=== PATIENT | female | born 1975 | race Caucasian/White ===

== ENCOUNTER 2023-02-24 09:27 | Emergency (ER) | payer OTHER, SELFPAY ==
[2023-02-24 09:28] VITALS: BP 119/67; PULSE 78; RESP 18; TEMP 36.1; O2SAT 100
--- NOTE | 2023-02-24 09:50 | EKG12_ITS ---
Test Reason : ABN LABS Blood Pressure : / mmHG Vent. Rate : 072 BPM Atrial Rate : 072 BPM P-R Int : 176 ms QRS Dur : 094 ms QT Int : 400 ms P-R-T Axes : 064 048 051 degrees QTc Int : 438 ms Normal sinus rhythm Normal ECG Confirmed by SVEN MCCRAY, JOHNSON ([id number]), supervising editor trailer LUCA CASSIDY ([id number]) on 02/28/2023 8:40:31 AM Referred By: Confirmed By:CHIOMA MACHUCA MD
--- NOTE | 2023-02-24 09:52 | EX.ED.DYSGE1 ---
HPI History of Present Illness Chief Complaint: Abn Labs Informant: patient Narrative Narrative: Patient presents secondary to anemia. She has been feeling very fatigued over the past week. She had a normal scheduled visit with her PCP on Saturday. Blood work was sent. This weekend she reviewed her records online and noted that her hemoglobin was down to 8.7 so presents here. She does report having some intermittent dark stool recently, but states she thought it was because she had been eating blueberries. She is unsure if she might have a GI bleed. She is unsure when her blood work may have been last checked or what her baseline hemoglobin normally runs. [facility] Medical History (Updated 02/24/23 @ 11:[address] Stacy Velásquez MD) Anxiety Depression Fibromyalgia High cholesterol Hx of gastroesophageal reflux (GERD) Leukemia Home Medications ferrous sulfate 325 mg (65 mg iron) tablet 325 mg PO BID #60 tabs 02/24/23 [Rx Last Taken Unknown] Allergy/AdvReac Type Severity Reaction Status Date / Time Sulfa (Sulfonamide Allergy Severe Other Verified 02/24/23 10:27 Antibiotics) Social History Smoking Status: Never smoker ROS ROS ED Constitutional Constitutional ED: Denies chills or fever(s) Eyes Eyes: Denies change in vision or discharge from eye(s) ENT ENT ED: Denies discharge from eye(s), rhinorrhea or sore throat Cardiovascular Cardiovascular: Denies chest pain or palpitations Respiratory/Chest Respiratory/Chest: Denies cough or dyspnea Gastrointestinal Gastrointestinal: Denies abdominal pain, diarrhea, nausea or vomiting Genitourinary Genitourinary ED: Reports urinary frequency; Denies dysuria Musculoskeletal Musculoskeletal: Reports back pain; Denies extremity pain Integumentary Denies Abrasions or rash Neurologic Neurologic: Reports weakness; Denies headache(s) Psychiatric Psychiatric: Denies anxiety or depression Allergic/Immunologic Allergic/Immunologic ED: Denies lip swelling or urticaria EXAM Physical Exam Const Vital Signs: 02/24/23 09:28 02/24/23 10:22 Temperature 96.9 F L Temperature Source Temporal Pulse Rate 78 67 Respiratory Rate 18 16 Blood Pressure 119/67 124/68 H Blood Pressure Mean 84 86 Pulse Ox 100 99 Oxygen Delivery Method Room Air Nasal Cannula Positive well nourished and well developed General Appearance ED: well developed HEENT Reports normocephalic and head/scalp atraumatic Eyes PERRL and EOMs intact bilaterally Neck supple Chest Wall inspection of chest normal and palpation of chest normal Resp normal respiratory effort and clear to auscultation bilaterally Cardio regular rate and regular rhythm GI normal to inspection, nondistended, normoactive bowel sounds Palpation: soft Extremity normal to inspection Neuro oriented x3 and no sensory deficits noted Sensorium / Orientation: alert Motor Exam: strength 5/5 throughout Psych mental status grossly normal Skin no rashes or lesions noted MDM MDM MDM Narrative Medical decision making narrative: Labwork obtained to evaluate for leukocytosis, anemia, and electrolyte derangement. Rectal exam performed for stool guaiac to evaluate for GI bleed. Patient given IV fluids. Insert urinalysis Lab Data Attestation: I reviewed the patient's lab results. Labs: Laboratory Results - last 24 hr 02/24/23 02/24/23 09:55 10:15 WBC 6.2 RBC 4.30 Hgb 9.4 L Hct 31.3 L MCV 72.8 L MCH 21.9 L MCHC 30.0 L RDW Std Deviation 50.6 H RDW Coeff of Marine 19.6 H Plt Count 365 MPV 9.7 Immature Gran % (Auto) 0.300 Neut % (Auto) 69.0 Lymph % (Auto) 22.6 [place] % (Auto) 6.5 Eos % (Auto) 1.1 Baso % (Auto) 0.5 Absolute Neuts (auto) 4.3 Absolute Lymphs (auto) 1.40 Nucleated RBC % 0 Sodium 138 Potassium 3.5 Chloride 106 Carbon Dioxide 26.0 Anion Gap 6 BUN 11 Creatinine 0.76 Est GFR (MDRD) Af Amer 106 Est GFR (MDRD) Non-Af 87 BUN/Creatinine Ratio 14.5 Glucose 128 H Calcium 9.1 Total Bilirubin 0.40 Direct Bilirubin 0.13 AST 14 L ALT 24 Alkaline Phosphatase 55 Total Protein 7.9 Albumin 3.9 Globulin 4.0 TSH 1.06 Serum , Qual NEGATIVE Urine Color Yellow Urine Clarity Clear Urine pH 7.0 Ur Specific [place] 1.005 Urine Protein Negative Urine Glucose (UA) Normal Urine Ketones Negative Urine Occult Blood Negative Urine Nitrite Negative Urine Bilirubin Negative Urine Urobilinogen Normal Ur Leukocyte Esterase Negative Urine RBC 0 SEEN Urine WBC 0 SEEN Ur Squamous Epith Cells 0-5 SEEN Urine Bacteria 0 SEEN Urine Mucus 0 SEEN EKG Initial EKG: Attestation: I personally reviewed and interpreted this EKG as follows: Interpretation: Sinus Rhythm (Sinus at 72 with no acute ischemia.) Treatment and Re-Evaluation :: CBC was white count 6.2 with a platelet count of 365,000. Hemoglobin is 9.4. She appears to have microcytic anemia. Chemistry studies are unremarkable. Glucose is 128. LFTs normal. TSH normal at 1.06. test negative and urinalysis negative. Stool guaiac is negative for blood. Patient will be given a prescription for iron supplements. She is to have her hemoglobin rechecked in a couple weeks. She was advised that her stool appeared dark with her iron supplement. Return instructions are given. Discharge Plan Triage Chief Complaint: Abn Labs ED Provider: Stacy Velásquez Dx/Rx/DC Orders Clinical Impression: Anemia Instructions: Iron Supplements, ED Anemia, Type Not Specified (Adult) Prescriptions: New ferrous sulfate 325 mg (65 mg iron) tablet 325 mg PO BID Qty: 60 0RF Primary Care Provider: Norm Soliz Referrals: Norm Soliz [[facility]] - 1-2 Weeks Disposition Disposition: Home, Self Care
[2023-02-24 10:05] LABS: Absolute Neutrophil Count 4.3 X10^3/uL (2.0-7.7); Basophil# 0.03 X10^3/uL; Basophil% 0.5 % (0-1); Eosinophil# 0.07 X10^3/uL; Eosinophils% 1.1 % (0-5); Hematocrit 31.3 % (37-47); Hemoglobin 9.4 g/dL (12.0-15.0); Lymphocyte % 22.6 % (19-41); Mean Corpuscular Hgb 21.9 pg (27.0-32.0); Mean Corpuscular Volume 72.8 fL (81-99); Mean Platelet Vol. 9.7 fl (6.2-12.0); Monocyte% 6.5 % (0-10); NRBC Flagged by Analyzer 0 % (0-5); Neutrophil # 4.27 X10^3/uL (2.7-7.7); Platelet Count 365 K/mm3 (150-450); RBC Distribution Width CV 19.6 % (11.6-14.6); RBC Distribution Width SD 50.6 fl (35.1-43.9); White Blood Count 6.2 K/mm3 (4.4-11.0)
[2023-02-24 10:22] VITALS: BP 124/68; PULSE 67; RESP 16; O2SAT 99
[2023-02-24 10:22] LABS: Internal QC Validated? YES +Cl - CLEAR BKGD; Pregnancy, Serum, hCG Quali. NEGATIVE Negative
[2023-02-24 10:22] LABS: Bacteria 0 SEEN /hpf (None Seen); Color, Urine Yellow (Yellow); Glucose, Dipstick Normal (Normal); Ketone-Dipstick Negative (Negative); Leukocyte Esterase-Dipstick Negative /ul (Negative); Mucous, Urine 0 SEEN /hpf (<or=2+); Nitrite-Dipstick Negative (Negative); Occult Blood-Urine Negative /ul (Negative); Protein-Dipstick Negative (Negative); Red Blood Cells-Urine 0 SEEN /hpf (0-5); Specific Gravity, Urine 1.005 (1.002-1.030); Urine Bilirubin Dipstick Negative (Negative); Urine Clarity Clear (Clear); Urine Urobilinogen Normal (Normal); White Blood Cells 0 SEEN /hpf (0-5)
[2023-02-24] MEDS: 0.9% Normal Saline 1,000 ML 150 ML IV (10:23)
[2023-02-24 10:27] LABS: Squamous Epithelial Cells - UA 0-5 SEEN /hpf (5-10)
[2023-02-24 10:30] LABS: AST(SGOT) 14 U/L (15-37); Alanine Aminotransfer ALT/SGPT 24 U/L (13-56); Albumin, Serum 3.9 g/dL (3.2-5.0); Alkaline Phosphatase 55 U/L (45-117); Anion Gap 6 (5-15); BUN 11 mg/dL (7-18); BUN/Creat Ratio 14.5 RATIO (10-20); Bilirubin, Direct 0.13 mg/dL (0.00-0.30); Calcium,Total 9.1 mg/dL (8.5-10.1); Chloride 106 mmol/L (98-107); Creatinine, Serum 0.76 mg/dL (0.55-1.02); EST Glomerular Filtration Rate 87 mL/min (>60); Est Glom Filt Rate - Afr Amer 106 mL/min (>60); Glucose 128 mg/dL (74-106); Potassium 3.5 mmol/L (3.5-5.1); Protein, Total 7.9 g/dL (6.4-8.2); Sodium Level 138 mmol/L (136-145); Thyroid Stim Hormone (TSH) 1.06 uIU/mL (0.358-3.74)
[2023-02-24 11:55] VITALS: BP 129/74; PULSE 78; RESP 15; O2SAT 100; BMI 30.9
== END 2023-02-24 11:56 | disposition home or self-care (01) ==
PROVIDERS: Emergency Provider Emergency Medicine; PCP Family Medicine; Visit Provider Emergency Medicine
DX: D64.9 Anemia, unspecified (principal); E78.00 Pure hypercholesterolemia, unspecified
CPT/HCPCS: 80048; 80076; 81001; 82274; 84443; 84703; 85025; 93005; 96360; 96361; 99284; J7030

== ENCOUNTER 2023-10-12 12:44 | Emergency (ER) | payer OTHER, SELFPAY ==
[2023-10-12 12:45] VITALS: BP 132/72; PULSE 88; RESP 14; TEMP 36.1; O2SAT 98; BMI 27.7
--- NOTE | 2023-10-12 13:04 | RAD_ITS ---
STUDY: X-RAY CHEST REASON FOR EXAM: Female, 48 years old. Chest pain TECHNIQUE: Frontal view of the chest COMPARISON: None. FINDINGS: The lungs are clear. There are no pleural effusions. There is no pneumothorax. The heart is normal in size. The visualized osseous structures are within normal limits. RAD/Chest 1 View (Portable) IMPRESSION: No acute thoracic pathology. Electronically Signed: Scotty Goodrich MD at 13:51 EDT ,
--- NOTE | 2023-10-12 13:06 | ED.VIS.CHEST ---
HPI <ANDREINA Fagan - Last Filed: 10/12/23 15:47> History of Present Illness Chief Complaint: Chest Pain Narrative Narrative: 48-year-old female with PMH of HLD, anemia, anxiety, depression presents with chest pain. In July 2023 she developed fatigue, congestion and cough along with chest pain. She completed antibiotics but since then has had daily persistent fatigue and midsternal chest pain. The chest pain is a tightness and feels worse over the last 3 days. She feels winded after speaking or singing. The pain is not exertional or pleuritic. She states she saw her primary care doctor a week ago and had a normal two-view chest x-ray and has been on a new antibiotic over the last 3 days for increased cough. No fever or chills. No history of DVT/PE. No hemoptysis, leg pain or swelling, recent surgery or travel, or hormone use. PFSH <ANDREINA Fagan - Last Filed: 10/12/23 15:47> PFSH Medical History (Updated 10/12/23 @ 14:08 by ANDREINA Fagan) Anxiety Depression Fibromyalgia High cholesterol Hx of gastroesophageal reflux (GERD) Leukemia Home Medications ferrous sulfate 325 mg (65 mg iron) tablet 325 mg PO BID #60 tabs 02/24/23 [Rx Last Taken Unknown] Allergy/AdvReac Type Severity Reaction Status Date / Time Sulfa (Sulfonamide Allergy Severe Other Verified 10/12/23 12:45 Antibiotics) Social History Smoking Status: Never smoker ROS <ANDREINA Fagan - Last Filed: 10/12/23 15:47> ROS ED ROS Narrative Constitutional: Negative for fever, chills, malaise. CVS: Positive for chest pain. Negative for palpitations, syncope. Respiratory: Positive for cough. GI: Negative for abdominal pain, nausea, vomiting, melena, hematochezia. EXAM <ANDREINA Fagan - Last Filed: 10/12/23 15:47> Physical Exam Narrative Exam Narrative: CONST: Patient sitting in no acute distress. EYES: Normal inspection. NECK: Normal inspection. RESP: No respiratory distress, CTAB. CVS: Regular rate and rhythm, no murmur, no gallop. ABD: Soft and nontender, no guarding or rebound, nondistended. SKIN: Color normal, no rash, warm, dry, intact. EXTREMITIES: Normal appearance, no pedal edema. NEURO: Oriented x4. PSYCH: Normal affect. Const Vital Signs: 10/12/23 12:45 10/12/23 15:25 Temperature 96.9 F L 98 F Temperature Source Temporal Pulse Rate 88 72 Respiratory Rate 14 18 Blood Pressure 132/72 H 117/57 L Blood Pressure Mean 92 77 Pulse Ox 98 98 Oxygen Delivery Method Room Air <Dr. Ricci Stephen DO - Last Filed: 10/12/23 16:46> Physical Exam Const Vital Signs: 10/12/23 12:45 10/12/23 15:25 Temperature 96.9 F L 98 F Temperature Source Temporal Pulse Rate 88 72 Respiratory Rate 14 18 Blood Pressure 132/72 H 117/57 L Blood Pressure Mean 92 77 Pulse Ox 98 98 Oxygen Delivery Method Room Air MDM <ANDREINA Fagan - Last Filed: 10/12/23 15:47> [facility] Narrative Medical decision making narrative: Patient has had ongoing fatigue and chest pain since July 2023. She feels like the chest tightness has increased in intensity over the last several days. She also had an increase in her ongoing cough and started an antibiotic 3 days ago. She appears well and nontoxic and is afebrile with normal vital signs. Normal cardiopulmonary exam. Abdomen soft and nontender. No clinical signs of fluid overload or DVT present. CBC shows normal white count of 6.3, hemoglobin of 11.8 is higher than previous. She is on iron supplementation as needed for iron deficiency anemia. BMP shows glucose of 178 and potassium of 3.4 but overall unremarkable. EKG is sinus rhythm with no ischemic changes and troponin is 4. CXR shows no acute process. Patient is PERC negative and there is no indication for D-dimer or CT scan. Her ongoing symptoms over the last 2 to 3 months with persistent fatigue and chest pain after a URI sound like a postviral syndrome. I recommended she follow-up with her PCP and she was discharged in stable condition. Lab Data Attestation: I reviewed the patient's lab results. Labs: Laboratory Results - last 24 hr 10/12/23 13:10 WBC 6.3 RBC 3.97 L Hgb 11.8 L Hct 36.0 L MCV 90.7 MCH 29.7 MCHC 32.8 RDW Std Deviation 41.9 RDW Coeff of Marine 12.7 Plt Count 265 MPV 10.0 Immature Gran % (Auto) 0.300 Neut % (Auto) 73.6 H Lymph % (Auto) 17.2 L [place] % (Auto) 7.3 Eos % (Auto) 1.1 Baso % (Auto) 0.5 Absolute Neuts (auto) 4.7 Absolute Lymphs (auto) 1.09 Nucleated RBC % 0 Sodium 137 Potassium 3.4 L Chloride 104 Carbon Dioxide 28.0 Anion Gap 5 BUN 10 Creatinine 0.72 Estim Creat Clear Calc 98.26 Est GFR (MDRD) Af Amer 112 Est GFR (MDRD) Non-Af 93 BUN/Creatinine Ratio 13.9 Glucose 178 H Calcium 9.1 Troponin I High Sens 4 Radiography Diagnostic Testing: Clinical Impression(s) from Imaging Studies Chest X-Ray 10/12/23 13:04 IMPRESSION: No acute thoracic pathology. Electronically Signed: Scotty Goodrich MD at 13:51 EDT , ED attending interpretation of 1-view chest x-ray shows normal heart size, no acute infiltrate, edema, or effusion. <Dr. Ricci Stephen, DO - Last Filed: 10/12/23 16:46> [facility] Narrative Medical decision making narrative: Patient has had ongoing fatigue and chest pain since July 2023. She feels like the chest tightness has increased in intensity over the last several days. She also had an increase in her ongoing cough and started an antibiotic 3 days ago. She appears well and nontoxic and is afebrile with normal vital signs. Normal cardiopulmonary exam. Abdomen soft and nontender. No clinical signs of fluid overload or DVT present. CBC shows normal white count of 6.3, hemoglobin of 11.8 is higher than previous. She is on iron supplementation as needed for iron deficiency anemia. BMP shows glucose of 178 and potassium of 3.4 but overall unremarkable. EKG is sinus rhythm with no ischemic changes and troponin is 4. CXR shows no acute process. Patient is PERC negative and there is no indication for D-dimer or CT scan. Her ongoing symptoms over the last 2 to 3 months with persistent fatigue and chest pain after a URI sound like a postviral syndrome. I recommended she follow-up with her PCP and she was discharged in stable condition. This patient was seen with a PA/WHEEL CUTTER Individually assessed they patient including history and physical. I have reviewed everything on the chart that is available and agree with the documentation provided by the PA/WHEEL CUTTER including discussion about the assessment, treatment plan, discussion, and return precautions. Patient presenting with atypical chest pain. Is been ongoing for days. Patient has no cardiac history. No history of DVT/PE risk factors. Differential as above. Lab work all unremarkable. Chest x-ray my interpretation shows no acute process. EKG sinus rhythm without evidence of ischemia or ectopy. This is on my interpretation. Patient's lab workup ultimately unremarkable. Discussed at length with her appropriate follow-up. Return precautions were discussed. Lab Data Labs: Laboratory Results - last 24 hr 10/12/23 13:10 WBC 6.3 RBC 3.97 L Hgb 11.8 L Hct 36.0 L MCV 90.7 MCH 29.7 MCHC 32.8 RDW Std Deviation 41.9 RDW Coeff of Marine 12.7 Plt Count 265 MPV 10.0 Immature Gran % (Auto) 0.300 Neut % (Auto) 73.6 H Lymph % (Auto) 17.2 L [place] % (Auto) 7.3 Eos % (Auto) 1.1 Baso % (Auto) 0.5 Absolute Neuts (auto) 4.7 Absolute Lymphs (auto) 1.09 Nucleated RBC % 0 Sodium 137 Potassium 3.4 L Chloride 104 Carbon Dioxide 28.0 Anion Gap 5 BUN 10 Creatinine 0.72 Estim Creat Clear Calc 98.26 Est GFR (MDRD) Af Amer 112 Est GFR (MDRD) Non-Af 93 BUN/Creatinine Ratio 13.9 Glucose 178 H Calcium 9.1 Troponin I High Sens 4 Radiography Diagnostic Testing: Clinical Impression(s) from Imaging Studies Chest X-Ray 10/12/23 13:04 IMPRESSION: No acute thoracic pathology. Electronically Signed: Scotty Goodrich MD at 13:51 EDT , Discharge Plan Triage Chief Complaint: Chest Pain ED Midlevel Provider: Idalmis Cintron ED Provider: Ricci Stephen Dx/Rx/DC Orders Clinical Impression: Fatigue, Atypical chest pain Instructions: ED Chest Pain, Uncertain Cause Prescriptions: No Action ferrous sulfate 325 mg (65 mg iron) tablet 325 mg PO BID Qty: 60 0RF Primary Care Provider: Norm Soliz Referrals: Norm Soliz DO [Primary Care Provider] - Activity Restrictions/Additional Instructions: Your screening test today look normal and I recommend you follow-up with your primary care doctor for further evaluation of your symptoms. Disposition Disposition: Home, Self Care Discharge Date/Time: 10/12/23 15:26
[2023-10-12 13:20] LABS: Absolute Lymphocyte Count 1.09 X10^3/uL (0.83-4.51); Absolute Neutrophil Count 4.7 X10^3/uL (2.0-7.7); Basophil# 0.03 X10^3/uL; Basophil% 0.5 % (0-1); Eosinophil# 0.07 X10^3/uL; Eosinophils% 1.1 % (0-5); Hemoglobin 11.8 g/dL (12.0-15.0); Lymphocyte # 1.09 X10^3/ul (0.83-4.51); Lymphocyte % 17.2 % (19-41); Mean Corp Hgb Conc 32.8 g/dL (32-36); Mean Corpuscular Hgb 29.7 pg (27.0-32.0); Mean Corpuscular Volume 90.7 fL (81-99); Monocyte# 0.46 X10^3/uL; Monocyte% 7.3 % (0-10); NRBC Flagged by Analyzer 0 % (0-5); Neutrophil # 4.67 X10^3/uL (2.7-7.7); Neutrophil % 73.6 % (47-70); Platelet Count 265 K/mm3 (150-450); RBC Distribution Width CV 12.7 % (11.6-14.6); RBC Distribution Width SD 41.9 fl (35.1-43.9); Red Blood Count 3.97 M/mm3 (4.2-5.4); White Blood Count 6.3 K/mm3 (4.4-11.0)
--- OUTSIDE RECORDS SUMMARY | 2023-10-12 13:34 | XMS RPT_ITS | CCD ---
Author Name Unknown Address [address] [place] [address] Organization [facility] Care Team Providers Care Net Making Supervisor Name Role Phone Norm Soliz F Primary Care Provider [phone] PROVIDER, UNKNOWN Referring Unavailable Simona De Souza Attending Unavailable Petrilla, Norm Primary Care Unavailable PROVIDER, UNKNOWN Referring Unavailable ADORE HOLLOWAY Attending Unavailable Petrilla, Norm Primary Care Unavailable Petrilla DONorm F Primary Care Provider MinniellNorm rahman DO F Primary Care Provider PETRILLA, NORM Primary Care Unavailable ADORE HOLLOWAY Attending Unavailable PETRILLA, NORM Primary Care Unavailable BRIDENTHAL, MARITA Attending Unavailable PETRILLA, NORM Primary Care Unavailable BRIDENTHAL, MARITA Attending Unavailable PETRILLA, NORM Attending Unavailable PETRILLA, NORM Primary Care Unavailable PETRILLA, NORM Attending Unavailable PETRILLA, NORM Primary Care Unavailable PETRILLA, NORM Primary Care Unavailable PETRILLA, NORM Attending Unavailable PETRILLA, NORM Primary Care Unavailable TARYN ZELAYA Attending Unavailable PETRILLA, NORM Primary Care Unavailable ADORE HOLLOWAY Attending Unavailable ADORE HOLLOWAY Referring Unavailable PETRILLA, NORM Primary Care Unavailable TARYN ZELAYA Attending Unavailable GARCIA TARYN Referring Unavailable PETRILLA, NORM Primary Care Unavailable BRIDENTHAL, MARITA Attending Unavailable BRIDENTHAL, MARITA Referring Unavailable PETRILLA, NORM Primary Care Unavailable TARYN ZELAYA Attending Unavailable PETRILLA, NORM Attending Unavailable PETRILLA, NOMR Primary Care Unavailable PETRILLA, NORM Referring Unavailable PETRILLA, NORM Primary Care Unavailable QUENTIN BRAND Attending Unavailable QUENTIN BRAND Referring Unavailable PETRILLA, NORM Primary Care Unavailable JUAN A LEDEZMA Attending Unavailable DASHAWN CRANE Attending Unavailable PETRILLA, NORM Primary Care Unavailable PETRILLA, NORM Referring Unavailable PETRILLA, NORM Primary Care Unavailable FLORENTINO ARZOLA Admitting Unavailable FLORENTINO ARZOLA Attending Unavailable Allergies Allergy Classification Reported Allergen(s) Allergy Type Date of Onset Reaction(s) Facility Sulfonamides (antibiotic) (1 source) Sulfonamides (Antibiotic) Drug Allergy 5 [facility] (4 sources) Sulfonamides (Antibiotic) Propensity to adverse reactions to drug 5 [place], [place] (20 sources) Sulfonamides (Antibiotic) Propensity to adverse reactions to drug 2 Unknown, [facility] Medications Current Medications Medication Drug Class(es) Dates Sig (Normalized) Sig (Original) amoxicillin 500 mg oral capsule (1 source) Penicillin-class Antibacterial Start: 02-13-2022 End: 02-23-2022 take 1 capsule by mouth twice daily amoxicillin (POLYMOX, AMOXIL) 500 mg capsule Take 1 capsule by mouth twice daily for 10 days. 20 capsule 0 02/13/2022 02/23/2022 Active Completed/Discontinued Medications Medication Drug Class(es) Dates Sig (Normalized) Sig (Original) calcium chloride 0.0014 meq/ml / potassium chloride 0.004 meq/ml / sodium chloride 0.103 meq/ml / sodium lactate 0.028 meq/ml injectable solution (2 sources) Start: 04-25-2023 End: 04-25-2023 lactated Ringer's (LR) infusion fluorometholone 1 mg/ml ophthalmic suspension (20 sources) Corticosteroid Start: 01-17-2021 fluorometholone (FML LIQUID FILM) 0.1 % ophthalmic suspension INSTILL 1 DROP INTO BOTH EYES EVERY NIGHT 0 01/17/2021 Active Problems Active Problems Problem Classification Problem Date Documented Date Episodic/Chronic Abdominal hernia (20 sources) Hiatal hernia; Translations: [Diaphragmatic hernia without obstruction or gangrene] Onset: 03-29-2023 05-05-2023 Episodic Anxiety disorders (20 sources) Mixed anxiety and depressive disorder; Translations: [Anxiety disorder, unspecified] Onset: 08-13-2016 08-13-2016 Chronic Deficiency and other anemia (2 sources) Iron deficiency anemia due to blood loss; Translations: [Iron deficiency anemia secondary to blood loss (chronic)] 06-12-2023 Chronic Deficiency and other anemia (2 sources) Iron deficiency anemia secondary to blood loss (chronic); Translations: [Iron deficiency anemia secondary to blood loss (chronic)] Onset: 07-11-2023 Chronic Deficiency and other anemia (1 source) Hypochromic microcytic anemia with iron overload; Translations: [Other iron deficiency anemias] 02-24-2023 Episodic Deficiency and other anemia (1 source) Iron deficiency anemia; Translations: [Iron deficiency anemia, unspecified] 03-04-2023 Episodic Deficiency and other anemia (3 sources) Anemia; Translations: [Anemia, unspecified] 03-14-2023 Episodic Disorders of lipid metabolism (20 sources) Hyperlipidemia; Translations: [Hyperlipidemia, unspecified] Onset: 08-23-2022 02-20-2023 Chronic Esophageal disorders (7 sources) Gastroesophageal reflux disease without esophagitis; Translations: [Gastro-esophageal reflux disease without esophagitis] Onset: 02-20-2023 02-20-2023 Chronic Esophageal disorders (2 sources) Esophageal disorders; Translations: [Gastro-esophageal reflux disease with esophagitis, without bleeding] Onset: 03-04-2023 Malaise and fatigue (14 sources) Fatigue; Translations: [Other fatigue] Onset: 09-03-2023 Episodic Menstrual disorders (20 sources) Menorrhagia; Translations: [Excessive and frequent menstruation with regular cycle] Onset: 11-11-2018 11-11-2018 Chronic Mood disorders (2 sources) Mood disorders; Translations: [Depression, unspecified] Onset: 05-14-2022 Nonspecific chest pain (1 source) Chest pain; Translations: [Chest pain, unspecified] Episodic Other connective tissue disease (2 sources) Pain in right lower leg; Translations: [Pain in right lower leg] Onset: 05-23-2022 Episodic Other connective tissue disease (2 sources) Other specified soft tissue disorders; Translations: [Other specified soft tissue disorders] Onset: 05-23-2022 Episodic Other female genital disorders (20 sources) Premenstrual tension syndrome; Translations: [Premenstrual tension syndrome] Onset: 07-05-2015 08-24-2015 Chronic Other lower respiratory disease (12 sources) Dyspnea; Translations: [Shortness of breath] Onset: 09-03-2023 Episodic Other lower respiratory disease (4 sources) Cough; Translations: [Cough, unspecified type] 10-04-2023 Episodic Other screening for suspected conditions (not mental disorders or infectious disease) (11 sources) Patient encounter status; Translations: [Encounter for screening for malignant neoplasm of colon] Onset: 02-20-2023 02-20-2023 Episodic Other skin disorders (1 source) Eruption; Translations: [Rash and other nonspecific skin eruption] Episodic Other upper respiratory infections (4 sources) Sinusitis; Translations: [Chronic sinusitis, unspecified] Onset: 10-04-2023 10-04-2023 Chronic Other upper respiratory infections (13 sources) Sore throat symptom; Translations: [Acute pharyngitis, unspecified] Onset: 03-23-2021 Resolved: 04-22-2021 Episodic Residual codes; unclassified (20 sources) Obstructive sleep apnea syndrome; Translations: [Obstructive sleep apnea (adult) (pediatric)] Onset: 07-29-2015 07-26-2016 Chronic Thyroid disorders (20 sources) Goiter; Translations: [Iodine-deficiency related diffuse (endemic) goiter] Onset: 02-15-2022 Chronic Unclassified (2 sources) Patient encounter status; Translations: [Encounter for screening mammogram for malignant neoplasm of breast] Unclassified (1 source) Cough, unspecified; Translations: [Cough, unspecified] Onset: 10-04-2023 Viral infection (12 sources) Disease caused by 2019-nCoV; Translations: [COVID-19] Onset: 09-03-2023 Episodic Past or Other Problems Problem Classification Problem Date Documented Date Episodic/Chronic Deficiency and other anemia (2 sources) Anemia, unspecified; Translations: [Anemia, unspecified] Onset: 03-14-2023 Episodic Deficiency and other anemia (2 sources) Iron deficiency anemia, unspecified; Translations: [Iron deficiency anemia, unspecified] Onset: 03-04-2023 Episodic Gastritis and duodenitis (20 sources) Gastritis; Translations: [Gastritis, unspecified, without bleeding] Onset: 03-29-2023 05-05-2023 Episodic Genitourinary symptoms and ill-defined conditions (3 sources) Abnormal urine odor; Translations: [Unspecified abnormal findings in urine] Onset: 06-12-2023 06-12-2023 Episodic Mood disorders (5 sources) Depressive disorder; Translations: [Major depressive disorder, single episode, unspecified] Onset: 07-05-2015 Resolved: 08-13-2016 08-13-2016 Chronic Neoplasms of unspecified nature or uncertain behavior (4 sources) Neoplasm of uncertain behavior of thyroid gland; Translations: [Neoplasm of uncertain behavior of thyroid gland] Onset: 05-07-2023 05-07-2023 Episodic Other connective tissue disease (20 sources) H/O: musculoskeletal disease; Translations: [Personal history of other diseases of the musculoskeletal system and connective tissue] Onset: 08-24-2015 08-24-2015 Episodic Other connective tissue disease (2 sources) Personal history of other diseases of the musculoskeletal system and connective tissue; Translations: [Personal history of other diseases of the musculoskeletal system and connective tissue] Onset: 05-14-2022 Episodic Residual codes; unclassified (20 sources) Family history of malignant neoplasm of thyroid; Translations: [Family history of malignant neoplasm of other organs or systems] Onset: 02-20-2023 02-20-2023 Episodic Residual codes; unclassified (20 sources) History of colonoscopy; Translations: [Other specified postprocedural states] Onset: 04-28-2023 05-05-2023 Episodic Unclassified (1 source) Cough, unspecified; Translations: [Cough, unspecified] Onset: 10-04-2023 Results Test Name Value Interpretation Reference Range Facil ity Vital Signs Date Time Vital Sign Value Performing Clinician Cristi fischer 09-11-2023 11:44-0500 Body mass index (BMI) [Ratio] 28.84 kg/m2 Marita Russelljohnal HISTOLOGY MANAGER - STORE PLANNER Work Phone: [employer] 09-11-2023 11:44-0500 Body temperature 98.6 [degF] Marita Russellenthal HISTOLOGY MANAGER - STORE PLANNER Work Phone: [facility] [employer] 09-11-2023 11:44-0500 Body weight 76.2 kg Marita Russellenthal HISTOLOGY MANAGER - STORE PLANNER Work Phone: [facility] 09-11-2023 11:44-0500 Diastolic blood pressure 69 mm[Hg] Marita Russellenthal HISTOLOGY MANAGER - STORE PLANNER Work Phone: [facility] 09-11-2023 11:44-0500 Heart rate 82 /min Marita Russelljohncarol HISTOLOGY MANAGER - STORE PLANNER Work Phone: [facility] 09-11-2023 11:44-0500 Respiratory rate 16 /min Marita Bridenthal HISTOLOGY MANAGER - STORE PLANNER Work Phone: [facility] 09-11-2023 11:44-0500 SaO2% (BldA) [Mass fraction] 97 % Marita Bridenthal HISTOLOGY MANAGER - STORE PLANNER Work Phone: [facility] 09-11-2023 11:44-0500 Systolic blood pressure 107 mm[Hg] Marita Bridenthal HISTOLOGY MANAGER - STORE PLANNER Work Phone: [facility] 09-03-2023 15:20-0500 Body mass index (BMI) [Ratio] 28.32 kg/m2 Marita Bridenthal HISTOLOGY MANAGER - STORE PLANNER Work Phone: [facility] 09-03-2023 15:20-0500 Body temperature 98.4 [degF] Marita Bridenthal HISTOLOGY MANAGER - STORE PLANNER Work Phone: [facility] 09-03-2023 15:20-0500 Body weight 74.84 kg Marita Bridenthal HISTOLOGY MANAGER - STORE PLANNER Work Phone: [facility] 09-03-2023 15:20-0500 Diastolic blood pressure 75 mm[Hg] Marita Bridenthal HISTOLOGY MANAGER - STORE PLANNER Work Phone: [facility] 09-03-2023 15:20-0500 Heart rate 69 /min Marita Bridenthal HISTOLOGY MANAGER - STORE PLANNER Work Phone: [facility] 09-03-2023 15:20-0500 Respiratory rate 20 /min Marita Bridenthal HISTOLOGY MANAGER - STORE PLANNER Work Phone: [facility] 09-03-2023 15:20-0500 SaO2% (BldA) [Mass fraction] 96 % Marita Bridenthal HISTOLOGY MANAGER - STORE PLANNER Work Phone: [facility] 09-03-2023 15:20-0500 Systolic blood pressure 135 mm[Hg] Marita Bridenthal HISTOLOGY MANAGER - STORE PLANNER Work Phone: [facility] 07-12-2023 15:23-0500 Body height 162.6 cm Taryn Zelaya MD Work Phone: [facility] 07-12-2023 15:23-0500 Body mass index (BMI) [Ratio] 27.46 kg/m2 Taryn Zelaya MD Work Phone: [facility] 07-12-2023 15:23-0500 Body weight 72.58 kg Taryn Zelaya MD Work Phone: [facility] 07-11-2023 13:04-0500 Body height 165.1 cm Norm Mancusoa DO Work Phone: [facility] 07-11-2023 13:04-0500 Body mass index (BMI) [Ratio] 27.62 kg/m2 Norm Hartmanlla DO Work Phone: [facility] 07-11-2023 13:04-0500 Body temperature 97.5 [degF] Norm Hartmanlla DO Work Phone: [facility] 07-11-2023 13:04-0500 Body weight 75.3 kg Norm Hartmanlla DO Work Phone: [facility] 07-11-2023 13:04-0500 Diastolic blood pressure 60 mm[Hg] Norm Minniella DO Work Phone: [facility] 07-11-2023 13:04-0500 Heart rate 96 /min Norm Hartmanlla DO Work Phone: [facility] 07-11-2023 13:04-0500 SaO2% (BldA) [Mass fraction] 99 % Norm Minniella DO Work Phone: [facility] 07-11-2023 13:04-0500 Systolic blood pressure 110 mm[Hg] Norm Hartmanlla DO Work Phone: [facility] 07-10-2023 14:07-0500 Body height 165.1 cm Taryn Zelaya MD Work Phone: [facility] 07-10-2023 14:07-0500 Body mass index (BMI) [Ratio] 26.96 kg/m2 Taryn Zelaya MD Work Phone: [facility] 07-10-2023 14:07-0500 Body weight 73.48 kg Taryn Zelaya MD Work Phone: [facility] 07-10-2023 14:07-0500 Diastolic blood pressure 74 mm[Hg] Taryn Zelaya MD Work Phone: [facility] 07-10-2023 14:07-0500 Systolic blood pressure 126 mm[Hg] Taryn Zelaya MD Work Phone: [facility] 06-12-2023 12:22-0500 Body height 165.1 cm Taryn Zelaya MD Work Phone: [facility] 06-12-2023 12:22-0500 Body mass index (BMI) [Ratio] 27.46 kg/m2 Taryn Zelaya MD Work Phone: [facility] 06-12-2023 12:22-0500 Body weight 74.84 kg Taryn Zelaya MD Work Phone: [facility] 06-12-2023 12:22-0500 Diastolic blood pressure 80 mm[Hg] Taryn Zelaya MD Work Phone: [facility] 06-12-2023 12:22-0500 Systolic blood pressure 124 mm[Hg] Taryn Zelaya MD Work Phone: [facility] 05-07-2023 13:41-0400 Diastolic blood pressure 65 mm[Hg] [employer] Phone: [facility] 05-07-2023 13:41-0400 Heart rate 66 /min [employer] Phone: [facility] 05-07-2023 13:41-0400 Respiratory rate 18 /min [employer] Phone: [facility] 05-07-2023 13:41-0400 SaO2% (BldA) [Mass fraction] 100 % [employer] Phone: [facility] 05-07-2023 13:41-0400 Systolic blood pressure 122 mm[Hg] Quentin [facility] [employer] Work Phone: [facility] 04-25-2023 09:07-0400 Diastolic blood pressure 73 mm[Hg] [employer] Work Phone: [facility] 04-25-2023 09:07-0400 Heart rate 77 /min [employer]el [employer] Work Phone: [facility] 04-25-2023 09:07-0400 Respiratory rate 18 /min [employer] Work Phone: [facility] 04-25-2023 09:07-0400 SaO2% (BldA) [Mass fraction] 100 % [employer] Work Phone: [facility] 04-25-2023 09:07-0400 Systolic blood pressure 116 mm[Hg] [employer] Work Phone: [facility] 04-25-2023 08:45-0400 Body temperature 97.5 [degF] [employer] Work Phone: [facility] 04-25-2023 07:51-0400 Body mass index (BMI) [Ratio] 27.46 kg/m2 [employer] Work Phone: [facility] 04-25-2023 07:51-0400 Body weight 74.84 kg [employer] Work Phone: [facility] 03-14-2023 14:35-0400 Body height 165.1 cm Skyl[employer] HISTOLOGY MANAGER - STORE PLANNER Work Phone: [facility] 03-14-2023 14:35-0400 Body mass index (BMI) [Ratio] 26.79 kg/m2 Juan A [employer] HISTOLOGY MANAGER - STORE PLANNER Work Phone: [facility] 03-14-2023 14:35-0400 Body weight 73.03 kg Juan A [employer] HISTOLOGY MANAGER - STORE PLANNER Work Phone: [facility] 03-14-2023 14:35-0400 Diastolic blood pressure 65 mm[Hg] Juan A [employer] HISTOLOGY MANAGER - STORE PLANNER Work Phone: [facility] 03-14-2023 14:35-0400 Heart rate 78 /min Juan A Ledezma APRN - STORE PLANNER Work Phone: [facility] 03-14-2023 14:35-0400 Systolic blood pressure 103 mm[Hg] Juan A Ledezma APRN - STORE PLANNER Work Phone: [facility] 03-04-2023 11:03-0400 Body height 165.1 cm Norm Mancusoa DO Work Phone: [facility] 03-04-2023 11:03-0400 Body mass index (BMI) [Ratio] 26.96 kg/m2 Norm Hartmanlla DO Work Phone: [facility] 03-04-2023 11:03-0400 Body temperature 97.5 [degF] Norm Mancusoa DO Work Phone: [facility] 03-04-2023 11:03-0400 Body weight 73.48 kg Norm Mancusoa DO Work Phone: [facility] 03-04-2023 11:03-0400 Diastolic blood pressure 61 mm[Hg] Norm Mancusoa DO Work Phone: [facility] 03-04-2023 11:03-0400 Heart rate 76 /min Norm Mancusoa DO Work Phone: [facility] 03-04-2023 11:03-0400 SaO2% (BldA) [Mass fraction] 99 % Norm Mancusoa DO Work Phone: [facility] 03-04-2023 11:03-0400 Systolic blood pressure 97 mm[Hg] Norm Mancusoa DO Work Phone: [facility] 02-20-2023 08:05-0400 Body height 165.1 cm Norm Mancusoa DO Work Phone: [facility] 02-20-2023 08:05-0400 Body mass index (BMI) [Ratio] 27.46 kg/m2 Norm Hartmanlla DO Work Phone: [facility] 07-26-2023 08:05-0400 Body temperature 97.5 [degF] Norm Soliz DO Work Phone: [facility] 02-20-2023 08:05-0400 Body weight 74.84 kg Norm Soliz DO Work Phone: [facility] 02-20-2023 08:05-0400 Diastolic blood pressure 53 mm[Hg] Norm Soliz DO Work Phone: [facility] 02-20-2023 08:05-0400 Heart rate 76 /min Norm Soliz DO Work Phone: [facility] 02-20-2023 08:05-0400 SaO2% (BldA) [Mass fraction] 99 % Norm Soliz DO Work Phone: [facility] 02-20-2023 08:05-0400 Systolic blood pressure 86 mm[Hg] Norm Soliz DO Work Phone: [facility] 05-09-2022 19:47-0400 Body temperature 98.2 [degF] Milagros Meyer APRN.STORE PLANNER Work Phone: [facility] 05-09-2022 19:47-0400 Body weight 76.57 kg Milagros Meyer APRN.STORE PLANNER Work Phone: [facility] 05-09-2022 19:47-0400 Diastolic blood pressure 72 mm[Hg] Milagros Meyer APRN.STORE PLANNER Work Phone: [facility] 05-09-2022 19:47-0400 Heart rate 86 /min Milagros Meyer APRN.STORE PLANNER Work Phone: [facility] 05-09-2022 19:47-0400 Respiratory rate 21 /min Milagros Meyer APRN.STORE PLANNER Work Phone: [facility] 05-09-2022 19:47-0400 SaO2% (BldA) [Mass fraction] 99 % Milagros Meyer APRN.STORE PLANNER Work Phone: [facility] 05-09-2022 19:47-0400 Systolic blood pressure 118 mm[Hg] Milagros Meyer HISTOLOGY MANAGER.STORE PLANNER Work Phone: [facility] 03-24-2022 11:24-0400 Body temperature 98.2 [degF] Britt Hood HISTOLOGY MANAGER.STORE PLANNER Work Phone: [facility] 03-24-2022 11:24-0400 Body weight 74.57 kg Britt Hood HISTOLOGY MANAGER.STORE PLANNER Work Phone: [facility] 03-24-2022 11:24-0400 Diastolic blood pressure 80 mm[Hg] Britt Hood HISTOLOGY MANAGER.STORE PLANNER Work Phone: [facility] 03-24-2022 11:24-0400 Heart rate 91 /min Britt Hodo HISTOLOGY MANAGER.STORE PLANNER Work Phone: [facility] 03-24-2022 11:24-0400 Respiratory rate 18 /min Britt Hood HISTOLOGY MANAGER.STORE PLANNER Work Phone: [facility] 03-24-2022 11:24-0400 SaO2% (BldA) [Mass fraction] 98 % Britt Hood HISTOLOGY MANAGER.STORE PLANNER Work Phone: [facility] 03-24-2022 11:24-0400 Systolic blood pressure 116 mm[Hg] Britt Hood HISTOLOGY MANAGER.STORE PLANNER Work Phone: [facility] 02-13-2022 19:47-0400 Body temperature 98.2 [degF] Alejandra Dupree HISTOLOGY MANAGER.STORE PLANNER Work Phone: [facility] 02-13-2022 19:47-0400 Body weight 76.3 kg Alejandra Dupree HISTOLOGY MANAGER.STORE PLANNER Work Phone: [facility] 02-13-2022 19:47-0400 Diastolic blood pressure 82 mm[Hg] Alejandra Dupree HISTOLOGY MANAGER.STORE PLANNER Work Phone: [facility] 02-13-2022 19:47-0400 Heart rate 86 /min Alejandra Dupree HISTOLOGY MANAGER.STORE PLANNER Work Phone: [facility] 02-13-2022 19:47-0400 Respiratory rate 16 /min Alejandra Dupree HISTOLOGY MANAGER.STORE PLANNER Work Phone: [facility] 02-13-2022 19:47-0400 SaO2% (BldA) [Mass fraction] 98 % Alejandrashon Dupree HISTOLOGY MANAGER.STORE PLANNER Work Phone: [facility] 02-13-2022 19:47-0400 Systolic blood pressure 126 mm[Hg] Alejandra Dupree HISTOLOGY MANAGER.STORE PLANNER Work Phone: [facility] Encounters Encounter Date Encounter Type Care Provider Facility Start: 10-04-2023 End: 10-05-2023 ambulatory [facility] Start: 10-04-2023 End: 10-04-2023 Subsequent hospital visit by physician Adore Holloway HISTOLOGY MANAGER - STORE PLANNER Work Phone: [facility] Radiology Procedures Date Procedure Procedure Detail Performing Clinician Start: 10-04-2023 Radiologic exam ches t 2 views Adore Holloway HISTOLOGY MANAGER - STORE PLANNER Work Phone: Start: 09-03-2023 Sars-cov-2 detection by dna/rna Marita Jia HISTOLOGY MANAGER - STORE PLANNER Work Phone: Start: 07-12-2023 End: 07-12-2023 Screening digital breast tomosynthesis bi Taryn Zelaya MD Work Phone: Start: 07-11-2023 Iron binding capacity E ugene F [facility] DO Work Phone: Start: 06-12-2023 Urnls dip stick/tabl et rgnt non-auto w/o micrscp Taryn Zelaya MD Work Phone: Start: 05-07-2023 Biopsy thyroid percu taneous core needle Quentin Brand DO Work Phone: Start: 04-25-2023 Urine test visual color cmprsn meths Ronnie Ramirez MD Work Phone: Start: 04-25-2023 Colonoscopy Veysel Villa an Work Phone: Start: 08-09-2022 Mammography Norm Pet rilla DO Work Phone: Start: 06-27-2022 Microscopic observat ion [Identifier] in Cervix by Cyto stain Norm Soliz DO Work Phone: Start: 02-13-2022 STREP A MOLECULAR (POC) Alejandra Leia HISTOLOGY MANAGER.STORE PLANNER Work Phone: Start: 03-20-2021 Blood count complete auto&auto difrntl wbc Simona De Souza HISTOLOGY MANAGER - COMPILATION CLERK Work Phone: Start: 03-20-2021 Heterophile antibodi es screen Simona De Souza HISTOLOGY MANAGER - COMPILATION CLERK Work Phone: Start: 03-14-2021 Radiologic exam ches t 2 views Simona De Souza HISTOLOGY MANAGER - COMPILATION CLERK Work Phone: Start: 01-23-2021 Microscopic observat ion [Identifier] in Cervix by Cyto stain Adore Holloway HISTOLOGY MANAGER - STORE PLANNER Work Phone: Start: 05-10-2020 Screening digital br east tomosynthesis bi Mk Renan Dailey Work Phone: Start: 05-01-2019 Screening digital br east tomosynthesis bi Mk Renan GallegosNewkirk Work Phone: Plan of Treatment Date Care Activity Detail Author Start: 2036 RSV Immunization aged 60 or older (1 - 1-dose 60+ series) RSV Immunization aged 60 or older (1 - 1-dose 60+ series) [facility] Start: 04-25-2033 Screening for malignant neoplasm of colon [facility] Start: 02-09-2027 LIPID SCREEN LIPID SCREEN [facility] Start: 2026 Zoster Vaccines (1 of 2) Zoster Vaccines (1 of 2) [facility] Start: 06-27-2025 Screening for malignant neoplasm of cervix [facility] Start: 02-09-2025 Diabetes mellitus screening Diabetes Screening [facility] Start: 02-09-2025 Diabetes screen Diabetes screen [facility] Start: 01-20-2025 Lipid panel Lipid screen [facility] [place] Start: 07-12-2024 Screening for malignant neoplasm of breast Mammogram [facility] Start: 03-11-2024 Thyroid Cancer Ultrasound Thyroid Cancer Ultrasound [facility] Start: 03-11-2024 Thyroid Nodule Ultrasound Thyroid Nodule Ultrasound [facility] Start: 01-24-2024 Screening for malignant neoplasm of cervix [facility] Start: 01-02-2024 End: 01-02-2024 Patient encounter procedure 01/02/2024 1:00 PM EDT Office Visit [facility] [address] [place] [address] Norm Soliz DO [address] [place] [address] [facility] Start: 10-31-2023 End: 10-31-2023 Patient encounter procedure 10/31/2023 8:00 AM EDT Office Visit [facility] [address] [place] [address] Norm Soliz DO [address] [place] [address] [facility] Start: 09-03-2023 End: 09-03-2024 CBC W Auto Differential panel - Blood CBC auto differential Lab Routine Other fatigue Expected: 09/03/2023 (Approximate), Expires: 09/03/2024 [facility] Immunizations Immunization Date Immunization Notes Care Provider Fa cili 07-11-2023 influenza, injectabl e, quadrivalent, preservative free Norm Soliz DO Work Phone: [facility] 07-11-2023 influenza virus vaccine, unspecified formulation Norm Heydi DO Work Phone: [facility] 11-23-2020 COVID-19, MODERNA BL UE border, Primary or Immunocompromised, (age 12y+), IM, 100 mcg/0.5mL Adore Holloway HISTOLOGY MANAGER - STORE PLANNER Work Phone: [facility] Work Phone: 10-26-2020 COVID-19, MODERNA BL UE border, Primary or Immunocompromised, (age 12y+), IM, 100 mcg/0.5mL Adore Holloway HISTOLOGY MANAGER - STORE PLANNER Work Phone: [facility] Work Phone: 08-01-2020 influenza, injectabl e, quadrivalent, preservative free Simona De Souza HISTOLOGY MANAGER - COMPILATION CLERK Work Phone: [facility] 08-01-2020 influenza virus vaccine, unspecified formulation Norm Soliz DO Work Phone: [facility] 09-07-2011 tetanus toxoid, redu jessenia diphtheria toxoid, and acellular pertussis vaccine, adsorbed Mk Dailey [place], [place] Payers Date Payer Category Payer Unknown MMO MMO SUPER[employer] PLUS [id number] 2021-Present [phone] [address] [place] [address] PPO [id number] 2021 Unknown [id number] 2019 Unknown [id number] 2015 Unknown [employer] ANTHEM BLUE ACCESS MYRA xxxxxxxxxxxx 2015-Present [address] [place] [address] xxxxxxxxxxxx [id number] 1975 Unknown [id number] 1973 Unknown [id number] Social History Date Type Detail Facility Start: 01-21-2020 End: 03-24-2022 Tobacco smoking status NHIS Never smoker [place], [place] Start: 01-21-2020 End: 03-24-2022 Tobacco use and exposure Never used [facility] Start: 01-21-2020 End: 10-04-2023 Alcohol intake Current non-drinker of alcohol (finding) Vicki Shoemaker [facility] Start: 10-28-2018 End: 02-13-2022 History SDOH Alcohol Frequency 1 [facility] Start: 10-28-2018 End: 02-09-2022 History SDOH [facility]: 10-28-2018 End: 01-26-2019 History SDOH Social Connections [facility] Start: 10-28-2018 End: 01-26-2019 History 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 Start: 04-14-2019 End: 10-04-2023 Alcohol intake No [facility] Start: 02-01-2021 End: 10-04-2023 Alcohol intake [facility] Start: 1975 Sex Assigned At Female [facility] Start: 02-13-2022 End: 05-09-2022 Alcohol intake Lifetime non-drinker (finding) [facility] Start: 02-03-2022 End: 04-19-2023 Exposure to SARS-CoV-2 (event) Not sure [facility] Start: 05-17-2022 Gender identity Identifies as female gender (finding) [facility] Start: 05-17-2022 Sexual orientation Heterosexual (fin ding) [facility] Within the last year , have you been afraid of your partner or ex-partner? No [facility] Goals Date Patient Goal Desired Activity /State Clinical Notes 02-13-2022 to 10-04-2023 CHARLES Quiles CNP - 10/04/2023 1:20 PM ESTAssessment & Plan Note - CHARLES Myers CNP - 09/11/2023 5:16 PM ESTMandi Hunter - 09/11/2023 11:40 AM ESTPatient Instructions Note Date & Type Note Facility 10-04-2023 History of Present illness Narrative Images from the original note were not included. 10/04/2023 Jaime Ma (: 1975) is a 48 y.o. female , Established patient, here for evaluation of the following chief complaint(s): No chief complaint on file. Patient was identified and seen today via Telehealth by agreement and consent. I used the following Telehealth technology: Audio and video capabilities. Patient location: Patient Location: Home. This patient encounter is appropriate and reasonable under the circumstances: appointment availability . The patient has been advised of the potential risks and limitations of this mode of treatment (including but not limited to the absence of in-person examination) and has agreed to be treated in a remote fashion in spite of them. Any and all of the patient's/patient's family's questions on this issue have been answered and I have made no promises or guarantees to the patient. The patient has also been advised to contact this office for worsening conditions or problems, and seek emergency medical treatment and/or call 911 if the patient deems either necessary. The patient stated that they are currently in the [facility]. If the patient is a minor, permission has been obtained by the parent or guardian for the patient to receive medical care at this visit. ASSESSMENT/PLAN: 1. Sinusitis, unspecified chronicity, unspecified location - doxycycline (Vibramycin) 100 MG capsule; Take 1 capsule (100 mg) by mouth 2 times daily for 10 days. Take with at least 8 ounces (large glass) of water, do not lie down for 30 minutes after, Starting 10/04/2023, Until 10/14/2023, Normal - Will do a second round of antibiotics due to ongoing symptoms. Discussed potential need to follow up with an ENT if symptoms persist- does have an ENT she is established with. 2. Cough, unspecified type - XR chest 2 views - Will obtain a CXR for further evaluation. Follow up if symptoms worsen or fail to improve. SUBJECTIVE/OBJECTIVE: HPI - Jaime presents today for a video virtual visit with ongoing concerns of sinus pain, sinus drainage, chest congestion/pressure, and throat irritation. Was treated about 3 weeks ago with a 7 day regimen of Augmentin and felt symptoms were improving, but never fully resolved. Over the past 5 days she feels symptoms have worsened. See ROS for additional information. Review of Systems Constitutional: Negative for chills and fever. HENT: Positive for congestion, rhinorrhea, sinus pressure, sinus pain and sore throat. Negative for ear discharge and ear pain. Respiratory: Positive for cough and shortness of breath. Negative for chest tightness and wheezing. There were no vitals filed for this visit. There is no height or weight on file to calculate BMI. Physical Exam Constitutional: General: She is not in acute distress. HENT: Head: Normocephalic and atraumatic. Pulmonary: Effort: Pulmonary effort is normal. Comments: Speaking in full sentences. Dry cough noted. Negative for audible wheezing or signs of respiratory distress. Skin: Coloration: Skin is not pale. Findings: No erythema. Neurological: Mental Status: She is alert and oriented to person, place, and time. Psychiatric: Mood and Affect: Mood normal. Behavior: Behavior normal. Thought Content: Thought content normal. Judgment: Judgment normal. An electronic signature was used to authenticate this note. CHARLES Quiles CNP 10/04/2023 1:25 PM documented in this encounter [facility] 09-11-2023 Evaluation + Plan note Associated Problem(s): Acute non-recurrent frontal sinusitis Will treat with antibiotics for bacterial sinusitis due to severity of symptoms and length of illness >7 days, not improving. [facility] 09-11-2023 Miscellaneous Notes Associated Problem(s): Acute non-recurrent frontal sinusitis Will treat with antibiotics for bacterial sinusitis due to severity of symptoms and length of illness >7 days, not improving. documented in this encounter [facility] 09-11-2023 Note Patient Education Sinusitis Discharge Instructions, Adult About this topic Your sinuses are hollow areas in the bones of your face. They have a thin lining that normally makes a small amount of mucus. When you have sinusitis, the lining gets swollen and makes extra mucus. You may have sinusitis with or after a cold. Most of the time sinusitis will get better in 1 to 2 weeks. Sinusitis is most often caused by a virus, so antibiotics won?t help. But some people do need antibiotics. If the doctor ordered antibiotics for you, be sure to follow the instructions. It is important to take all of your antibiotics even if you start to feel better. What care is needed at home? Ask your doctor what you need to do when you go home. Make sure you ask questions if you do not understand what you need to do. Try to thin the mucus. Drink lots of liquids to stay hydrated. Use a cool mist humidifier to avoid dry air. Use saline nose drops or a saline nose rinse to relieve stuffiness. Wash your hands often. This will help keep others healthy. Do not smoke or be in smoke-filled places. Avoid things that may cause breathing problems like fumes, pollution, dust, and other common allergens and irritants. You may want to take medicine like ibuprofen, naproxen, or acetaminophen to help with pain. What follow-up care is needed? Your doctor may ask you to make visits to the office to check on your progress. Be sure to keep your visits. Your doctor will tell you if other tests are needed. Your doctor may send you for allergy tests or to an allergy expert. What lifestyle changes are needed? Avoid drinks that contain caffeine or alcohol. Try to stop smoking. Avoid being around others who smoke. Smoke can damage the small hairs inside your sinuses. What drugs may be needed? The doctor may order drugs to: Help with pain and swelling Fight an infection Control coughing Dry up the sinuses Help a runny or stuffy nose Will physical activity be limited? You do not have to limit your activity. You may want to rest more if you have a fever or headache. What problems could happen? Infections that happen again and again Asthma attack Coughing Loss of voice What can be done to prevent this health problem? Keep your nose as moist as possible. Use saline sprays, washes, and a humidifier often. Avoid being around cigarette and cigar smoke or strong odors from chemicals. Avoid long periods of swimming in pools treated with chlorine. This can bother the lining of the nose and sinuses. Avoid water diving. This forces water into the sinuses from the nasal passages. Manage your allergies with your doctor's help. Use an air conditioner if allergies are a problem. Before air travel, use a drug to dry up mucus. As the plane takes off or lands, the pressure can cause sinus pain. When do I need to call the doctor? You have a stiff neck, especially if you also have fever, chills, vomiting, or severe headache You have trouble thinking clearly. You have trouble seeing or have double vision. You have swelling or redness or pain around one or both eyes. You have a fever of 102?F (38.9?C) or higher, or have shaking chills or sweats. You have an upset stomach and throwing up. You have more pain in your face and head. You are not getting better within 1 to 2 weeks. Teach Back: Helping You Understand The Teach Back Method helps you understand the information we are giving you. After you talk with the staff, tell them in your own words what you learned. This helps to make sure the staff has covered each thing clearly. It also helps to explain things that may have been confusing. Before going home, make sure you can do these: I can tell you about my condition. I can tell you what may help ease my breathing. I can tell you what I will do if I have a fever, chills, or trouble breathing. Where can I learn more? [employer] https://familydoctor.org/condition /sinusitis/ Centers for Disease Control and Prevention https://www.cdc.gov/antibiotic-use /community/for-hcp/outpatient-hcp/ adult-treatm ent-rec.html Last Reviewed Date 2021-01-04 Consumer Information Use and Disclaimer This generalized information is a limited summary of diagnosis, treatment, and/or medication information. It is not meant to be comprehensive and should be used as a tool to help the user understand and/or assess potential diagnostic and treatment options. It does NOT include all information about conditions, treatments, medications, side effects, or risks that may apply to a specific patient. It is not intended to be medical advice or a substitute for the medical advice, diagnosis, or treatment of a health care provider based on the health care provider's examination and assessment of a patient?s specific and unique circumstances. Patients must speak with a health care provider for complete inform (more content not included)... [facility] 09-11-2023 History of Present illness Narrative Patient was identified by name and Date of . Images from the original note were not included. 09/11/2023 Jaime Ma (: 1975) is a 47 y.o. female , Established patient, here for evaluation of the following chief complaint(s): Hoarseness ASSESSMENT/PLAN: 1. Acute non-recurrent frontal sinusitis Assessment & Plan: Will treat with antibiotics for bacterial sinusitis due to severity of symptoms and length of illness >7 days, not improving. Orders: - amoxicillin-clavulanate (Augmentin) 875-125 MG tablet; Take 1 tablet by mouth 2 times daily for 7 days., Starting Sat09/11/2023, Until Sat09/18/2023, Normal - methylPREDNISolone (Medrol Dospak) 4 MG tablets; Take as directed on package., Normal Follow up if symptoms worsen or fail to improve. SUBJECTIVE/OBJECTIVE: HPI - Jaime Ma (: 1975) is a 47 y.o. female , Established patient, here for the evaluation of the following chief complaint(s): Hoarseness Patient presents for ongoing sinus pressure and throat pain was initially seen September 03 and believed to have viral illness. Has been using flonase and doubled the omeprazole since last appt. Throat is sore, headache, sinus pressure, fatigue. No fever in the past week, reports her symptoms have worsened. Denies any chest pain or shortness of breath but does have some soreness in the chest. Prior to Admission medications Medication Sig Start Date End Date Taking? Authorizing Provider ferrous sulfate 325 (65 Fe) MG tablet One bid for 3 months, then readdress with [employer] on need for rx 06/23/23 Yes Norm Soliz DO fluorometholone (FML) 0.1 % ophthalmic suspension INSTILL 1 DROP INTO BOTH EYES EVERY NIGHT 06/11/20 Yes Historical Provider, FLUoxetine (PROzac) 10 MG capsule Take 1 capsule (10 mg) by mouth every morning for 180 doses. 09/05/23 03/03/24 Yes Norm Soliz DO omeprazole (PriLOSEC) [address] capsule Take 2 capsules (40 mg) by mouth daily. 09/03/23 12/02/23 Yes CHARLES Myers CNP rosuvastatin (Crestor) 5 MG tablet Take 1 tablet (5 mg) by mouth every morning for 180 doses. 09/05/23 03/03/24 Yes Norm Soliz DO tranexamic acid (Lysteda) 650 MG tablet tablet Take 2 tablets (1,300 mg) by mouth 3 times daily. For up to 5 days during your period. May stop when flow is light 06/12/23 Yes Taryn Zelaya MD traZODone (Desyrel) 50 MG tablet Take 1 tablet (50 mg) by mouth Nightly for 180 doses. 09/04/23 03/02/24 Yes Norm Soliz DO FLUoxetine (PROzac) 10 MG capsule Take 1 capsule (10 mg) by mouth every morning for 90 doses. 02/20/23 09/05/23 Norm Soliz DO rosuvastatin (Crestor) 5 MG tablet Take 1 tablet (5 mg) by mouth every morning for 180 doses. 02/20/23 09/05/23 Norm Soliz DO Review of Systems Constitutional: Negative for chills, fatigue and fever. HENT: Positive for congestion, sinus pressure, sinus pain and sore throat. Negative for postnasal drip and trouble swallowing. Respiratory: Positive for cough (some throat clearing). Negative for shortness of breath. Cardiovascular: Negative for chest pain. Chest discomfort or tightness/congestion Gastrointestinal: Negative. Genitourinary: Negative for difficulty urinating. Neurological: Positive for headaches. Vitals: 09/11/23 1144 BP: 107/69 Pulse: 82 Resp: 16 Temp: 37 C (98.6 F) TempSrc: Infrared SpO2: 97% Weight: 168 lb (76.2 kg) Physical Exam Constitutional: General: She is not in acute distress. Appearance: Normal appearance. She is ill-appearing. HENT: Head: Normocephalic and atraumatic. Right Ear: Tympanic membrane normal. Left Ear: Tympanic membrane normal. Nose: Congestion present. No rhinorrhea. Right Turbinates: Enlarged. Left Turbinates: Enlarged and swollen. Right Sinus: No maxillary sinus tenderness or frontal sinus tenderness. Left Sinus: No maxillary sinus tenderness or frontal sinus tenderness. Mouth/Throat: Mouth: Mucous membranes are moist. Pharynx: Oropharynx is clear. No posterior oropharyngeal erythema. Eyes: Conjunctiva/sclera: Conjunctivae normal. Neck: Comments: Fullness noted over the thyroid Cardiovascular: Rate and Rhythm: Normal rate and regular rhythm. Pulses: Normal pulses. Heart sounds: Normal heart sounds. Pulmonary: Effort: Pulmonary effort is normal. Breath sounds: Normal breath sounds. Comments: Speaking full sentences without difficulty Musculoskeletal: Right lower leg: No edema. Left lower leg: No edema. Lymphadenopathy: Cervical: No cervical adenopathy. Skin: General: Skin is warm and dry. Neurological: Mental Status: She is alert and oriented to person, place, and time. An electronic signature was used to authenticate this note. CHARLES Myers CNP 09/11/2023 5:16 PM documented in this encounter [facility] 09-11-2023 Instructions CHARLES Myers CNP - 09/11/2023 11:40 AM EST Images from the original note were not included. Patient Education Sinusitis Discharge Instructions, Adult About this topic Your sinuses are hollow areas in the bones of your face. They have a thin lining that normally makes a small amount of mucus. When you have sinusitis, the lining gets swollen and makes extra mucus. You may have sinusitis with or after a cold. Most of the time sinusitis will get better in 1 to 2 weeks. Sinusitis is most often caused by a virus, so antibiotics won t help. But some people do need antibiotics. If the doctor ordered antibiotics for you, be sure to follow the instructions. It is important to take all of your antibiotics even if you start to feel better. What care is needed at home? Ask your doctor what you need to do when you go home. Make sure you ask questions if you do not understand what you need to do. Try to thin the mucus. Drink lots of liquids to stay hydrated. Use a cool mist humidifier to avoid dry air. Use saline nose drops or a saline nose rinse to relieve stuffiness. Wash your hands often. This will help keep others healthy. Do not smoke or be in smoke-filled places. Avoid things that may cause breathing problems like fumes, pollution, dust, and other common allergens and irritants. You may want to take medicine like ibuprofen, naproxen, or acetaminophen to help with pain. What follow-up care is needed? Your doctor may ask you to make visits to the office to check on your progress. Be sure to keep your visits. Your doctor will tell you if other tests are needed. Your doctor may send you for allergy tests or to an allergy expert. What lifestyle changes are needed? Avoid drinks that contain caffeine or alcohol. Try to stop smoking. Avoid being around others who smoke. Smoke can damage the small hairs inside your sinuses. What drugs may be needed? The doctor may order drugs to: Help with pain and swelling Fight an infection Control coughing Dry up the sinuses Help a runny or stuffy nose Will physical activity be limited? You do not have to limit your activity. You may want to rest more if you have a fever or headache. What problems could happen? Infections that happen again and again Asthma attack Coughing Loss of voice What can be done to prevent this health problem? Keep your nose as moist as possible. Use saline sprays, washes, and a humidifier often. Avoid being around cigarette and cigar smoke or strong odors from chemicals. Avoid long periods of swimming in pools treated with chlorine. This can bother the lining of the nose and sinuses. Avoid water diving. This forces water into the sinuses from the nasal passages. Manage your allergies with your doctor's help. Use an air conditioner if allergies are a problem. Before air travel, use a drug to dry up mucus. As the plane takes off or lands, the pressure can cause sinus pain. When do I need to call the doctor? You have a stiff neck, especially if you also have fever, chills, vomiting, or severe headache You have trouble thinking clearly. You have trouble seeing or have double vision. You have swelling or redness or pain around one or both eyes. You have a fever of 102 F (38.9 C) or higher, or have shaking chills or sweats. You have an upset stomach and throwing up. You have more pain in your face and head. You are not getting better within 1 to 2 weeks. Teach Back: Helping You Understand The Teach Back Method helps you understand the information we are giving you. After you talk with the staff, tell them in your own words what you learned. This helps to make sure the staff has covered each thing clearly. It also helps to explain things that may have been confusing. Before going home, make sure you can do these: I can tell you about my condition. I can tell you what may help ease my breathing. I can tell you what I will do if I have a fever, chills, or trouble breathing. Where can I learn more? [employer] https://familydoctor.org/condition /sinusitis/ Centers for Disease Control and Prevention https://www.cdc.gov/antibiotic-use /community/for-hcp/outpatient-hcp/ nwbag-bvefsdral-nlw.html Last Reviewed Date 2021-01-04 Consumer Information Use and Disclaimer This generalized information is a limited summary of diagnosis, treatment, and/or medication information. It is not meant to be comprehensive and should be used as a tool to help the user understand and/or assess potential diagnostic and treatment options. It does NOT include all information about conditions, treatments, medications, side effects, or risks that may apply to a specific patient. It is not intended to be medical advice or a substitute for the medical advice, diagnosis, or treatment of a health care provider based on the health care provider's examination and assessment of a patient s specific and unique circumstances. Patients must speak with a health care provider for complete information about their health, medical questions, and treatment options, including any risks or benefits regarding use of medications. This information does not endorse any treatments or medications as safe, effective, or approved for treating a specific patient. [employer] and its affiliates disclaim any warranty or liability relating to this information or the use thereof. The use of this information is governed by the Terms of Use, available at https://www.[employer].com/en/k now/nucjsewk-iqmmzxdzawkis-ngdye Copyright Copyright 2021 [employer] and its affiliates and/or licensors. All rights reserved. documented in this encounter [facility] 09-05-2023 Telephone encounter Note Rx loaded Next ov 01/02/24 [facility] 09-05-2023 Miscellaneous Notes Rx loaded Next ov 01/02/24 documented in this encounter [facility] 09-04-2023 Telephone encounter Note Rx loaded [facility] 09-04-2023 Miscellaneous Notes Rx loaded documented in this encounter [facility] 09-03-2023 Evaluation + Plan note Associated Problem(s): Shortness of breath No acute distress. Lung sounds are clear. Possibly secondary to poorly controlled GERD or nasal congestion. Will treat GERD with increased PPI to 40 mg daily and start Flonase nasal spray. CBC CMP TSH and mono screening. If shortness of breath does not improve, would recommend chest x-ray and PFT at that time [facility] 09-03-2023 Miscellaneous Notes Associated Problem(s): Shortness of breath No acute distress. Lung sounds are clear. Possibly secondary to poorly controlled GERD or nasal congestion. Will treat GERD with increased PPI to 40 mg daily and start Flonase nasal spray. CBC CMP TSH and mono screening. If shortness of breath does not improve, would recommend chest x-ray and PFT at that time Associated Problem(s): Viral illness Symptoms are consistent with likely viral illness. Patient's lung sounds are clear, patient does have significant nasal congestion. Will start Flonase nasal spray. Due to her history of acid reflux will increase PPI to 40 mg daily. Check CBC CMP TSH and mono screening for fatigue COVID test was negative today. However does not rule out that she may have had COVID infection initially. Associated Problem(s): Other fatigue Likely secondary to recent viral illness. Is COVID-negative today however illness started approximately 3 weeks ago. Will check CBC, CMP, TSH, monotest documented in this encounter [facility] 09-03-2023 Miscellaneous Notes Associated Problem(s): Shortness of breath No acute distress. Lung sounds are clear. Possibly secondary to poorly controlled GERD or nasal congestion. Will treat GERD with increased PPI to 40 mg daily and start Flonase nasal spray. CBC CMP TSH and mono screening. If shortness of breath does not improve, would recommend chest x-ray and PFT at that time Associated Problem(s): Viral illness Symptoms are consistent with likely viral illness. Patient's lung sounds are clear, patient does have significant nasal congestion. Will start Flonase nasal spray. Due to her history of acid reflux will increase PPI to 40 mg daily. Check CBC CMP TSH and mono screening for fatigue COVID test was negative today. However does not rule out that she may have had COVID infection initially. Associated Problem(s): Other fatigue Likely secondary to recent viral illness. Is COVID-negative today however illness started approximately 3 weeks ago. Will check CBC, CMP, TSH, monotest Addended by: WILL CHILDS on: 09/04/2023 02:23 PM Modules accepted: Orders documented in this encounter [facility] 09-03-2023 Evaluation + Plan note Associated Problem(s): Viral illness Symptoms are consistent with likely viral illness. Patient's lung sounds are clear, patient does have significant nasal congestion. Will start Flonase nasal spray. Due to her history of acid reflux will increase PPI to 40 mg daily. Check CBC CMP TSH and mono screening for fatigue COVID test was negative today. However does not rule out that she may have had COVID infection initially. [facility] 09-03-2023 Evaluation + Plan note Associated Problem(s): Other fatigue Likely secondary to recent viral illness. Is COVID-negative today however illness started approximately 3 weeks ago. Will check CBC, CMP, TSH, monotest [facility] 09-03-2023 Note Addended by: WILL CHILDS on: 09/04/2023 02:23 PM Modules accepted: Orders [facility] 09-03-2023 History of Present illness Narrative CPatient was identified by name and Date of . Images from the original note were not included. 09/03/2023 Jaime Ma (: 1975) is a 47 y.o. female , POD scheduled, Established patient, here for evaluation of the following chief complaint(s): Cough, Fatigue (/), and Shortness of Breath ASSESSMENT/PLAN: 1. Viral illness Assessment & Plan: Symptoms are consistent with likely viral illness. Patient's lung sounds are clear, patient does have significant nasal congestion. Will start Flonase nasal spray. Due to her history of acid reflux will increase PPI to 40 mg daily. Check CBC CMP TSH and mono screening for fatigue COVID test was negative today. However does not rule out that she may have had COVID infection initially. Orders: - omeprazole (PriLOSEC) [address] capsule; Take 2 capsules (40 mg) by mouth daily., Starting Sat09/03/2023, Until Sat12/02/2023, No Print 2. Other fatigue Assessment & Plan: Likely secondary to recent viral illness. Is COVID-negative today however illness started approximately 3 weeks ago. Will check CBC, CMP, TSH, monotest Orders: - TSH - CBC auto differential - Comprehensive metabolic panel - Mononucleosis screen - AMB POC COVID-19 COV - omeprazole (PriLOSEC) [address] capsule; Take 2 capsules (40 mg) by mouth daily., Starting Sat09/03/2023, Until Sat12/02/2023, No Print 3. Shortness of breath Assessment & Plan: No acute distress. Lung sounds are clear. Possibly secondary to poorly controlled GERD or nasal congestion. Will treat GERD with increased PPI to 40 mg daily and start Flonase nasal spray. CBC CMP TSH and mono screening. If shortness of breath does not improve, would recommend chest x-ray and PFT at that time Follow up for as directed pending test results. SUBJECTIVE/OBJECTIVE: [facility] - Jaime Ma (: 1975) is a 47 y.o. female , Established patient of Dr. Soliz, here for evaluation of the following chief complaint(s): Cough, Fatigue (/), and Shortness of Breath Started 3 weeks ago with headache, sore throat, sinus congestion, fatigue. Cough occasional- nonproductive, sneezing, feels chest congestion, has occasional acid reflux. Feels somewhat short of breath, denies any chest pain no abdominal pain no nausea or vomiting or diarrhea Aleve, ibuprofen, acetaminophen helps minimal. Did not test for COVID at home Prior to Admission medications Medication Sig Start Date End Date Taking? Authorizing Provider ferrous sulfate 325 (65 Fe) MG tablet One bid for 3 months, then readdress with [employer] on need for rx 06/23/23 Yes Norm Soliz DO fluorometholone (FML) 0.1 % ophthalmic suspension INSTILL 1 DROP INTO BOTH EYES EVERY NIGHT 06/11/20 Yes Boyd Reed MD FLUoxetine (PROzac) 10 MG capsule Take 1 capsule (10 mg) by mouth every morning for 90 doses. 02/20/23 09/03/23 Yes Norm Soliz DO omeprazole (PriLOSEC) [address] capsule Take 1 capsule (20 mg) by mouth daily. 07/11/23 10/09/23 Yes Norm Soliz DO rosuvastatin (Crestor) 5 MG tablet Take 1 tablet (5 mg) by mouth every morning for 180 doses. 02/20/23 09/03/23 Yes Norm Soliz DO tranexamic acid (Lysteda) 650 MG tablet tablet Take 2 tablets (1,300 mg) by mouth 3 times daily. For up to 5 days during your period. May stop when flow is light 06/12/23 Yes Taryn Zelaya MD traZODone (Desyrel) 50 MG tablet Take 1 tablet (50 mg) by mouth Nightly for 180 doses. 02/20/23 09/03/23 Yes Norm Soliz DO Review of Systems Constitutional: Positive for fatigue. Negative for activity change, appetite change, chills and fever. HENT: Positive for congestion, postnasal drip, sneezing and sore throat. Negative for ear discharge, ear pain, hearing loss, rhinorrhea, sinus pressure and sinus pain. Respiratory: Positive for cough (minimal) and shortness of breath. Negative for chest tightness and wheezing. Cardiovascular: Negative for chest pain. Gastrointestinal: Negative for abdominal pain, diarrhea, nausea and vomiting. Genitourinary: Negative for difficulty urinating. Musculoskeletal: Positive for arthralgias. Neurological: Positive for light-headedness. Negative for dizziness. Vitals: 09/03/23 1520 BP: 135/75 Pulse: 69 Resp: 20 Temp: 36.9 C (98.4 F) TempSrc: Infrared SpO2: 96% Weight: 165 lb (74.8 kg) Physical Exam Constitutional: General: She is not in acute distress. Appearance: Normal appearance. She is ill-appearing (Appears fatigued). HENT: Head: Normocephalic and atraumatic. Right Ear: Tympanic membrane normal. Left Ear: Tympanic membrane normal. Nose: Congestion present. No rhinorrhea. Right Turbinates: Enlarged. Left Turbinates: Enlarged and swollen. Right Sinus: No maxillary sinus tenderness or frontal sinus tenderness. Left Sinus: No maxillary sinus tenderness or frontal sinus tenderness. Mouth/Throat: Mouth: Mucous membranes are moist. Pharynx: Oropharynx is clear. No posterior oropharyngeal erythema. Eyes: Conjunctiva/sclera: Conjunctivae normal. Neck: Comments: Fullness noted over the thyroid Cardiovascular: Rate and Rhythm: Normal rate and regular rhythm. Pulses: Normal pulses. Heart sounds: Normal heart sounds. Pulmonary: Effort: Pulmonary effort is normal. Breath sounds: Normal breath sounds. Musculoskeletal: Right lower leg: No edema. Left lower leg: No edema. Lymphadenopathy: Cervical: No cervical adenopathy. Skin: General: Skin is warm and dry. Neurological: Mental Status: She is alert and oriented to person, place, and time. An electronic signature was used to authenticate this note. CHARLES Myers CNP 09/03/2023 5:31 PM documented in this encounter [facility] 09-03-2023 History of Present illness Narrative CPatient was identified by name and Date of . Images from the original note were not included. 09/03/2023 Jaime Ma (: 1975) is a 47 y.o. female , POD scheduled, Established patient, here for evaluation of the following chief complaint(s): Cough, Fatigue (/), and Shortness of Breath ASSESSMENT/PLAN: 1. Viral illness Assessment & Plan: Symptoms are consistent with likely viral illness. Patient's lung sounds are clear, patient does have significant nasal congestion. Will start Flonase nasal spray. Due to her history of acid reflux will increase PPI to 40 mg daily. Check CBC CMP TSH and mono screening for fatigue COVID test was negative today. However does not rule out that she may have had COVID infection initially. Orders: - omeprazole (PriLOSEC) [address] capsule; Take 2 capsules (40 mg) by mouth daily., Starting Sat09/03/2023, Until Sat12/02/2023, No Print 2. Other fatigue Assessment & Plan: Likely secondary to recent viral illness. Is COVID-negative today however illness started approximately 3 weeks ago. Will check CBC, CMP, TSH, monotest Orders: - TSH - CBC auto differential - Comprehensive metabolic panel - Mononucleosis screen - AMB POC COVID-19 COV - omeprazole (PriLOSEC) [address] capsule; Take 2 capsules (40 mg) by mouth daily., Starting Sat09/03/2023, Until Sat12/02/2023, No Print 3. Shortness of breath Assessment & Plan: No acute distress. Lung sounds are clear. Possibly secondary to poorly controlled GERD or nasal congestion. Will treat GERD with increased PPI to 40 mg daily and start Flonase nasal spray. CBC CMP TSH and mono screening. If shortness of breath does not improve, would recommend chest x-ray and PFT at that time Follow up for as directed pending test results. SUBJECTIVE/OBJECTIVE: [facility] - Jaime Ma (: 1975) is a 47 y.o. female , Established patient of Dr. Soliz, here for evaluation of the following chief complaint(s): Cough, Fatigue (/), and Shortness of Breath Started 3 weeks ago with headache, sore throat, sinus congestion, fatigue. Cough occasional- nonproductive, sneezing, feels chest congestion, has occasional acid reflux. Feels somewhat short of breath, denies any chest pain no abdominal pain no nausea or vomiting or diarrhea Aleve, ibuprofen, acetaminophen helps minimal. Did not test for COVID at home Prior to Admission medications Medication Sig Start Date End Date Taking? Authorizing Provider ferrous sulfate 325 (65 Fe) MG tablet One bid for 3 months, then readdress with [employer] on need for rx 06/23/23 Yes Norm Soliz, DO fluorometholone (FML) 0.1 % ophthalmic suspension INSTILL 1 DROP INTO BOTH EYES EVERY NIGHT 06/11/20 Yes Historical Provider, FLUoxetine (PROzac) 10 MG capsule Take 1 capsule (10 mg) by mouth every morning for 90 doses. 02/20/23 09/03/23 Yes Norm Soliz DO omeprazole (PriLOSEC) [address] capsule Take 1 capsule (20 mg) by mouth daily. 07/11/23 10/09/23 Yes Norm Soliz DO rosuvastatin (Crestor) 5 MG tablet Take 1 tablet (5 mg) by mouth every morning for 180 doses. 02/20/23 09/03/23 Yes Norm Soliz DO tranexamic acid (Lysteda) 650 MG tablet tablet Take 2 tablets (1,300 mg) by mouth 3 times daily. For up to 5 days during your period. May stop when flow is light 06/12/23 Yes Taryn Zelaya MD traZODone (Desyrel) 50 MG tablet Take 1 tablet (50 mg) by mouth Nightly for 180 doses. 02/20/23 09/03/23 Yes Norm Soliz DO Review of Systems Constitutional: Positive for fatigue. Negative for activity change, appetite change, chills and fever. HENT: Positive for congestion, postnasal drip, sneezing and sore throat. Negative for ear discharge, ear pain, hearing loss, rhinorrhea, sinus pressure and sinus pain. Respiratory: Positive for cough (minimal) and shortness of breath. Negative for chest tightness and wheezing. Cardiovascular: Negative for chest pain. Gastrointestinal: Negative for abdominal pain, diarrhea, nausea and vomiting. Genitourinary: Negative for difficulty urinating. Musculoskeletal: Positive for arthralgias. Neurological: Positive for light-headedness. Negative for dizziness. Vitals: 09/03/23 1520 BP: 135/75 Pulse: 69 Resp: 20 Temp: 36.9 C (98.4 F) TempSrc: Infrared SpO2: 96% Weight: 165 lb (74.8 kg) Physical Exam Constitutional: General: She is not in acute distress. Appearance: Normal appearance. She is ill-appearing (Appears fatigued). HENT: Head: Normocephalic and atraumatic. Right Ear: Tympanic membrane normal. Left Ear: Tympanic membrane normal. Nose: Congestion present. No rhinorrhea. Right Turbinates: Enlarged. Left Turbinates: Enlarged and swollen. Right Sinus: No maxillary sinus tenderness or frontal sinus tenderness. Left Sinus: No maxillary sinus tenderness or frontal sinus tenderness. Mouth/Throat: Mouth: Mucous membranes are moist. Pharynx: Oropharynx is clear. No posterior oropharyngeal erythema. Eyes: Conjunctiva/sclera: Conjunctivae normal. Neck: Comments: Fullness noted over the thyroid Cardiovascular: Rate and Rhythm: Normal rate and regular rhythm. Pulses: Normal pulses. Heart sounds: Normal heart sounds. Pulmonary: Effort: Pulmonary effort is normal. Breath sounds: Normal breath sounds. Musculoskeletal: Right lower leg: No edema. Left lower leg: No edema. Lymphadenopathy: Cervical: No cervical adenopathy. Skin: General: Skin is warm and dry. Neurological: Mental Status: She is alert and oriented to person, place, and time. An electronic signature was used to authenticate this note. CHARLES Myers CNP 09/03/2023 5:31 PM documented in this encounter [facility] 09-03-2023 Instructions CHARLES Myers CNP - 09/03/2023 3:20 PM EST Flonase over the counter 2 sprays twice daily x 7 days, then 2 sprays once daily. Omeprazole increase to 40 mg daily. documented in this encounter [facility] 09-03-2023 Instructions CHARLES Myers CNP - 09/03/2023 3:20 PM EST Flonase over the counter 2 sprays twice daily x 7 days, then 2 sprays once daily. Omeprazole increase to 40 mg daily. documented in this encounter [facility] 09-03-2023 Note Addended by: WILL CHILDS on: 09/04/2023 02:23 PM Modules accepted: Orders [facility] 07-15-2023 Telephone encounter Note Message released to patient as written. Call patient and tell her hemoglobin is entirely normal. Since she just started her new [employer] medicine for her periods, I would continue the iron supplement but only take once a day for 7 days of each month to be started roughly 3 to 4 days before her menses. Then I would recheck another CBC in 6 months. Patient's further questions if applicable: no Were all questions from office addressed or relayed to the patient from encounter: Yes Pt will ask for the lab order in December when she comes in. [facility] 07-15-2023 Miscellaneous Notes Message released to patient as written. Call patient and tell her hemoglobin is entirely normal. Since she just started her new [employer] medicine for her periods, I would continue the iron supplement but only take once a day for 7 days of each month to be started roughly 3 to 4 days before her menses. Then I would recheck another CBC in 6 months. Patient's further questions if applicable: no Were all questions from office addressed or relayed to the patient from encounter: Yes Pt will ask for the lab order in December when she comes in. documented in this encounter [facility] 07-11-2023 History of Present illness Narrative Images from the original note were not included. [facility] [address] [place] [address] [address] [facility] [id number] Visit type: Established Patient Reason for Visit: Discuss Labs (Wants to check iron level) Assessment / Plan: Jaime was seen today for discuss labs. Diagnoses and all orders for this visit: Iron deficiency anemia due to chronic blood loss (Primary) Comments: Improving, continue Lysteda per [employer] Orders: - CBC auto differential; Future - Iron and TIBC; Future - Ferritin; Future - CBC auto differential - Iron and TIBC - Ferritin - Vitamin B12; Future - Vitamin B12 Menorrhagia with regular cycle Multiple thyroid nodules Hiatal hernia Comments: Improving, decreased Prilosec to 20 mg daily after 3 months of meds Anxiety and depression Comments: Stable, continue Prozac and trazodone Other orders - Flu vaccine quadrivalent (IIV4), for patients ages 6 mo+, (Flulaval) preservative free - omeprazole (PriLOSEC) [address] capsule; Take 1 capsule (20 mg) by mouth daily. Subjective: Patient ID: Jaime Ma is a 47 y.o. female. HPI patient with history of chronic anemia probably due to dysfunctional uterine bleeding presents for overall checkup. He is presently on iron therapy for that and would like to get some recheck lab. Of note had some checkups this summer with thyroid biopsy that was negative for malignancy apparently. Also had panendoscopy for dysphagia and found to have substantial hiatal hernia with reflux. He is presently on omeprazole and feeling better. Status post colonoscopy with polypectomy and unsure of timing of future checkups Review of Systems she is feeling better. More strength. Stable on Prozac and trazodone. Presently on Lysteda per [employer] and already had a french polisher. She denies heartburn or dysphagia. No early satiety. No melena or blood. Bowels are pretty much normal. No change in quality stress. Allergies Allergen Reactions Sulfa Antibiotics Hives Other reaction(s): Unknown Other reaction(s): Other Current Outpatient Medications on File Prior to Visit Medication Sig Dispense Refill ferrous sulfate 325 (65 Fe) MG tablet One bid for 3 months, then readdress with [employer] on need for rx 180 tablet 0 fluorometholone (FML) 0.1 % ophthalmic suspension INSTILL 1 DROP INTO BOTH EYES EVERY NIGHT FLUoxetine (PROzac) 10 MG capsule Take 1 capsule (10 mg) by mouth every morning for 90 doses. 90 capsule 1 rosuvastatin (Crestor) 5 MG tablet Take 1 tablet (5 mg) by mouth every morning for 180 doses. 90 tablet 1 tranexamic acid (Lysteda) 650 MG tablet tablet Take 2 tablets (1,300 mg) by mouth 3 times daily. For up to 5 days during your period. May stop when flow is light 90 tablet 3 traZODone (Desyrel) 50 MG tablet Take 1 tablet (50 mg) by mouth Nightly for 180 doses. 90 tablet 1 [DISCONTINUED] omeprazole (PriLOSEC) [address] capsule Take 1 capsule (40 mg) by mouth daily. 90 capsule 1 No current facility-administered medications on file prior to visit. Patient Active Problem List Diagnosis PMS (premenstrual syndrome) H/O fibromyalgia Anxiety and depression Multiple thyroid nodules BOO on CPAP Menorrhagia with regular cycle Hypercholesterolemia Family history of thyroid cancer H/O colonoscopy with polypectomy Gastritis Hiatal hernia Social History Tobacco Use Smoking status: Never Smokeless tobacco: Never Substance Use Topics Alcohol use: No Alcohol/week: 0.0 standard drinks of alcohol Past Surgical History: Procedure Laterality Date COLONOSCOPY W/ BIOPSIES AND POLYPECTOMY N/A 04/25/2023 [facility]- polyp- due ? EGD (HISTORICAL) 03/2023 [facility]- HH w/gastritis IR US THYROID BIOPSY (HISTORICAL) 04/2023 [facility]- atypia, ? f/u SKIN CANCER EXCISION 2012 scalp BCC- [facility]ie WISDOM TOOTH EXTRACTION Family History Problem Relation Name Age of Onset Anxiety disorder Mother mardel Hyperlipidemia Mother mardel Depression Mother mardel Asthma Mother mardel mild cough variant asthma Deep vein thrombosis Father Jaxon Cordon post op Atrial fibrillation Father Jaxon Cordon High Blood Pressure Father Jaxon Cordon Thyroid cancer Sister Gloria 35 No Known Problems Sister No Known Problems Sister No Known Problems Daughter No Known Problems Son No Known Problems Son No Known Problems Son Dementia Maternal Grandmother No Known Problems Maternal Grandfather Stroke Paternal Grandmother No Known Problems Paternal Grandfather Objective: BP 110/60 Pulse 96 Temp 36.4 C (97.5 F) Ht 5' 5 (1.651 m) Wt 166 lb (75.3 kg) LMP 06/22/2023 (Exact Date) SpO2 99% BMI 27.62 kg/m Physical Exam Exam was unremarkable pleasant cooperative. Does not look pale. Normal oropharynx. Clyde conjunctive and nailbeds. No change in thyroid goiter. No adenopathy or carotid bruits. Heart is regular without gallops or murmurs. Lungs are clear. Abdomen obese nontender without pain hepatosplenomegaly masses bruits ascites or adenopathy. Normal extremities without edema and reflexes are normal documented in this encounter [facility] 07-10-2023 History of Present illness Narrative Jaime Ma 07/10/2022 47 y.o. Primary Care Physician: Norm Soliz DO Chief Complaint Patient presents with Annual Exam Well woman Last pap-06/27/2022 Last bj-07/03/2022 HPI : Jaime Ma is a 47 y.o. female here for annual exam __ Gynecologic History: Patient's last menstrual period was 06/22/2023 (exact date). Menses are regular. Menses occur every regular every 4 weeks. Flow is better this past month with using the Lysteda. Period lasted 7 days, but flow much french polisher, would like to continue Intermenstrual bleeding: no Dysmenorrhea: none Sexually active: Yes Dyspareunia: no Contraception: condoms Preventative Health Testing: Date of Last Pap Smear: neg pap and HPV in 05/2022 Abnormal Pap Smear History: none per pt Date of Last Mammogram: 06/2022, had follow up imaging of right breast in 07/2022 Date of Last Colonoscopy: 2022 Past Medical History: Diagnosis Date ALL (acute lymphocytic leukemia) (HCC) 1982 Anemia Anxiety and depression 2014 Dr. Conroy, [facility] 2017 Basal cell carcinoma of scalp 04/2013 [facility] Breast cancer screening 07/2022 COVID-19 virus infection 02/2021 Family history of thyroid cancer sister age 35 H/O colonoscopy with polypectomy 03/2023 [facility]- due ? H/O fibromyalgia 2004 Hiatal hernia 03/2023 EGD per [facility]- gastroesophagitis Hx antineoplastic chemo Hypercholesterolemia 08/23/2022 Menorrhagia with regular cycle 11/11/2018 Multiple thyroid nodules 01/2022 bx 05/20 per [facility]- atypia- ? F/u BOO on CPAP 2016 [facility] Personal history of irradiation Routine gynecological examination 05/2022 Dr.Amy Garcia Horton 10/2021 Left T7 Past Surgical History: Procedure Laterality Date COLONOSCOPY W/ BIOPSIES AND POLYPECTOMY N/A 04/25/2023 [facility]- polyp- due ? EGD (HISTORICAL) 03/2023 [facility]- HH w/gastritis IR US THYROID BIOPSY (HISTORICAL) 04/2023 [facility]o- atypia, ? f/u SKIN CANCER EXCISION 2013 scalp BCC- Chrissie WISDOM TOOTH EXTRACTION Family History Problem Relation Name Age of Onset Anxiety disorder Mother marjavad Hyperlipidemia Mother mar[place]ad Depression Mother marjavad Asthma Mother selene mild cough variant asthma Deep vein thrombosis Father Jaxon Cordon post op Atrial fibrillation Father Jaxon Cordon High Blood Pressure Father Jaxon Cordon Thyroid cancer Sister Gloria 35 No Known Problems Sister No Known Problems Sister No Known Problems Daughter No Known Problems Son No Known Problems Son No Known Problems Son Dementia Maternal Grandmother No Known Problems Maternal Grandfather Stroke Paternal Grandmother No Known Problems Paternal Grandfather Social History Socioeconomic History Marital status: Spouse name: Not on file Number of children: Not on file Years of education: Not on file Highest education level: Not on file Occupational History Not on file Tobacco Use Smoking status: Never Smokeless tobacco: Never Vaping Use Vaping Use: Never used Substance and Sexual Activity Alcohol use: No Alcohol/week: 0.0 standard drinks of alcohol Drug use: Never Sexual activity: Yes Partners: Male control/protection: Condom Male Other Topics Concern Not on file Social History Narrative to K[place], (Had [place] 11/18 with stent). 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 Social Determinants of Health Financial Resource Strain: Not on file Food Insecurity: Not on file Transportation Needs: Not on file Physical Activity: Not on file Stress: Not on file Social Connections: Not on file Intimate Partner Violence: Not At Risk (04/25/2023) Humiliation, Afraid, Rape, and Kick questionnaire Fear of Current or Ex-Partner: No Emotionally Abused: No Physically Abused: No Sexually Abused: No Housing Stability: Not on file OB History Para Term AB Living 4 4 4 4 SAB IAB Ectopic Multiple Live Births # Outcome Date GA Lbr Yan/2nd Weight Sex Delivery Anes PTL Lv 4 Term 2011 F Vag-Spont 3 Term 2004 M Vag-Spont 2 Term 2002 M Vag-Spont 1 Term 2001 M Vag-Spont MEDICATIONS: Current Outpatient Medications Medication Sig Dispense Refill ferrous sulfate 325 (65 Fe) MG tablet One bid for 3 months, then readdress with RESIDENTIAL SALES on need for rx 180 tablet 0 fluorometholone (FML) 0.1 % ophthalmic suspension INSTILL 1 DROP INTO BOTH EYES EVERY NIGHT FLUoxetine (PROzac) 10 MG capsule Take 1 capsule (10 mg) by mouth every morning for 90 doses. 90 capsule 1 omeprazole (PriLOSEC) [address] capsule Take 1 capsule (40 mg) by mouth daily. 90 capsule 1 rosuvastatin (Crestor) 5 MG tablet Take 1 tablet (5 mg) by mouth every morning for 180 doses. 90 tablet 1 tranexamic acid (Lysteda) 650 MG tablet tablet Take 2 tablets (1,300 mg) by mouth 3 times daily. For up to 5 days during your period. May stop when flow is light 90 tablet 3 traZODone (Desyrel) 50 MG tablet Take 1 tablet (50 mg) by mouth Nightly for 180 doses. 90 tablet 1 No current facility-administered medications for this visit. ALLERGIES: Allergies as of 07/10/2023 - Reviewed 07/10/2023 Allergen Reaction Noted Sulfa antibiotics Hives 02/13/2012 REVIEW OF SYSTEMS: CONSTIUTIONAL: No weight change or fatigue. No fever or chills. No changes in appetite. CV: No chest pain, palpitations, or syncope. RESPIRATORY: No SOB, cough, or wheezing. BREAST: No breast abnormalities or lumps. GI: No heartburn, nausea, vomiting, diarrhea, constipation, bloating or bowel changes. No blood or mucous with bowel movements or melena. : No dysuria, frequency, hesitancy, urgency, hematuria or nocturia. No urinary incontinence. No vaginal discharge, odor, or itch. No dyspareunia. NEURO: No weakness or sensory changes DERM: No rash or itching. HEME and LYMPH : No lymphoma or abnormal bleeding history PHYSICAL EXAM: Vitals: 07/10/23 1407 BP: 126/74 Weight: 162 lb (73.5 kg) Height: 5' 5 (1.651 m) Body mass index is 26.96 kg/m . GENERAL EXAM CONSTITUTIONAL: well developed, well nourished, well groomed, no acute distress NECK: no thyromegaly, supple CARDIOVASCULAR: normal rate, no edema LUNGS: normal effort ABDOMEN: soft, non-tender, non-distended NEUROLOGICAL: no gross motor or sensory deficits noted MUSCULOSKETAL: normal gait, no cyanosis PSYCHIATRIC: normal mood and affect, A&O x3 RESIDENTIAL SALES EXAM: BREASTS: normal, no masses, tenderness or skin changes EXTERNAL GENITALIA: normal female structures VAGINA: normal ruggae, no lesions CERVIX: no lesions, no cervical motion tenderness, normal appearance UTERUS: normal mobility, nontender, normal size, shape and consistency ADNEXA: normal, non tender no masses URETHRA: normal. nontender BLADDER: non tender PELVIC SUPPORT DEFECTS: normal support of vagina, uterus, and bladder ANUS/PERINEUM: no hemorrhoids, masses or warts noted ASSESSMENT/PLAN: Jaime was seen today for annual exam. Diagnoses and all orders for this visit: Encounter for gynecological examination with abnormal finding (Primary) Menorrhagia with regular cycle Screening mammogram for breast cancer - Bilateral screening mammogram with tomosynthesis; Future Follow up in about 1 year (around 07/10/2024) for annual. Discussed pap guidelines and routine gynecologic preventative care/screening. Self breast exam discussed as well as recommendation for yearly clinical breast exam and mammogram. Weight management through healthy diet and regular exercise reviewed. Advised use of MVI and vit D supplementation, calcium through diet if able. Colonoscopy recommended for women over 45, earlier if a family history. Routine health maintenance per patient's PCP as well. Taryn Zelaya M.D. 07/10/2023 at 2:23 PM (Electronically Signed) documented in this encounter [facility] 06-24-2023 Telephone encounter Note Void did not need. Duplicate request. [facility] 06-24-2023 Miscellaneous Notes Void did not need. Duplicate request. documented in this encounter [facility] 06-12-2023 History of Present illness Narrative Chief Complaint Patient presents with Follow-up Low iron Urinary odor HPI: Patient is here to discuss anemia. She had blood work done in January and had a hgb of 8.7 with a MCV of 72. Follow up labs in the ED showed low iron per pt. She was placed on a iron supplement and hgb has since improved to 10.3 at last check with MCV 76. She had a colonoscopy to look for causes of chronic blood loss and that did not show anything to explain her blood levels. She has been having heavy periods for several years, occasional accidents, wears both a tampon and pad. They are monthly, but heavy. She has been hesitant to start any control or medication to control them in the past. Pap normal in 2021 History: Past Medical History: Diagnosis Date ALL (acute lymphocytic leukemia) (HCC) 1982 Anemia Anxiety and depression 2014 Dr. Conroy, [facility]in 2017 Basal cell carcinoma of scalp 04/2013 [facility] Breast cancer screening 07/2022 COVID-19 virus infection 02/2021 Family history of thyroid cancer sister age 35 H/O colonoscopy with polypectomy 03/2023 Tahan- due ? H/O fibromyalgia 2004 Hiatal hernia 03/2023 EGD per Loki- gastroesophagitis Hx antineoplastic chemo Hypercholesterolemia 08/23/2022 Menorrhagia with regular cycle 11/11/2018 Multiple thyroid nodules 01/2022 bx 05/20 per Primo- atypia- ? F/u BOO on CPAP 2016 Refecas Personal history of irradiation Routine gynecological examination 05/2022 Dr.Amy Garcia Horton 10/2021 Left T7 Past Surgical History: Procedure Laterality Date COLONOSCOPY W/ BIOPSIES AND POLYPECTOMY N/A 04/25/2023 Tahan- polyp- due ? EGD (HISTORICAL) 03/2023 Tahan- HH w/gastritis IR US THYROID BIOPSY (HISTORICAL) 04/2023 Primo- atypia, ? f/u SKIN CANCER EXCISION 2013 scalp BCC- Chrissie WISDOM TOOTH EXTRACTION Family History Problem Relation Name Age of Onset Anxiety disorder Mother mardel Hyperlipidemia Mother mardel Depression Mother mardel Asthma Mother mardel mild cough variant asthma Deep vein thrombosis Father Jaxon Cordon post op Atrial fibrillation Father Jaxon Cordon High Blood Pressure Father Jaxon Cordon Thyroid cancer Sister Gloria 35 No Known Problems Sister No Known Problems Sister No Known Problems Daughter No Known Problems Son No Known Problems Son No Known Problems Son Dementia Maternal Grandmother No Known Problems Maternal Grandfather Stroke Paternal Grandmother No Known Problems Paternal Grandfather Social History Socioeconomic History Marital status: Spouse name: Not on file Number of children: Not on file Years of education: Not on file Highest education level: Not on file Occupational History Not on file Tobacco Use Smoking status: Never Smokeless tobacco: Never Vaping Use Vaping Use: Never used Substance and Sexual Activity Alcohol use: No Alcohol/week: 0.0 standard drinks of alcohol Drug use: Never Sexual activity: Yes Other Topics Concern Not on file Social History Narrative to K[place], (Had [place] 11/18 with stent). 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 Social Determinants of Health Financial Resource Strain: Not on file Food Insecurity: Not on file Transportation Needs: Not on file Physical Activity: Not on file Stress: Not on file Social Connections: Not on file Intimate Partner Violence: Not At Risk (04/25/2023) Humiliation, Afraid, Rape, and Kick questionnaire Fear of Current or Ex-Partner: No Emotionally Abused: No Physically Abused: No Sexually Abused: No Housing Stability: Not on file Current Outpatient Medications on File Prior to Visit Medication Sig Dispense Refill ferrous sulfate 325 (65 Fe) MG tablet Take 1 tablet (325 mg) by mouth daily (with breakfast). 90 tablet 0 fluorometholone (FML) 0.1 % ophthalmic suspension INSTILL 1 DROP INTO BOTH EYES EVERY NIGHT FLUoxetine (PROzac) 10 MG capsule Take 1 capsule (10 mg) by mouth every morning for 90 doses. 90 capsule 1 omeprazole (PriLOSEC) [address] capsule Take 1 capsule (40 mg) by mouth daily. 90 capsule 1 rosuvastatin (Crestor) 5 MG tablet Take 1 tablet (5 mg) by mouth every morning for 180 doses. 90 tablet 1 traZODone (Desyrel) 50 MG tablet Take 1 tablet (50 mg) by mouth Nightly for 180 doses. 90 tablet 1 No current facility-administered medications on file prior to visit. Allergies Allergen Reactions Sulfa Antibiotics Hives Other reaction(s): Unknown Other reaction(s): Other Assessment and Plan: Jaime was seen today for follow-up. Diagnoses and all orders for this visit: Menorrhagia with regular cycle (Primary) - Urine culture Abnormal urine odor - POCT urinalysis dipstick manually resulted - tranexamic acid (Lysteda) 650 MG tablet tablet; Take 2 tablets (1,300 mg) by mouth 3 times daily. For up to 5 days during your period. May stop when flow is light Iron deficiency anemia due to chronic blood loss - Urine culture Discussed that menorrhagia is a very common cause of iron def anemia in premenopausal women. She likely cannot buildup blood losses fast enough in between periods. Iron supplementation is helping and she could just do that, but doing something to french polisher periods would help at the cause of the anemia. LNG IUD and other hormonal control discussed. Reviewed ablation and Lysteda as alterative non hormonal options. Reviewed risk foDVT with Lysteda and estrogen containing control. Patient would like to try Lysteda. Si/sx of DVT reviewed. Patient also reports bad odor to urine, no dysuria. Urine dip today negative except for trace blood. Will send culture. documented in this encounter [facility] 04-25-2023 Note Patient: Jaime Ma Procedure Summary Date: 04/25/23 Room / Location: [facility] / [facility] Gastroenterology Anesthesia Start: 756 Anesthesia Stop: 850 Procedures: EGD, COLONOSCOPY COLONOSCOPY Diagnosis: GERD (gastroesophageal reflux disease) Anemia Colon cancer screening (GERD (gastroesophageal reflux disease) [K21.9]) (Anemia [D64.9]) (Colon cancer screening [Z12.11]) Providers: Florentino Arzola Responsible Provider: Ronnie Ramirez Jr., MD Anesthesia Type: TIVA ASA Status: 2 Anesthesia Type: TIVA Vitals Value Taken Time BP 109/67 04/25/23 0845 Temp 36.4 ?C (97.5 ?F) 04/25/23 0845 Pulse 72 04/25/23 0845 Resp 16 04/25/23 0845 SpO2 99 % 04/25/23 0845 Anesthesia Post Evaluation Patient location during evaluation: PACU Patient participation: complete - patient participated Level of consciousness: awake and alert Pain management: satisfactory to patient Airway patency: patent Dental Injury: no Cardiovascular status: acceptable, blood pressure returned to baseline and hemodynamically stable Respiratory status: acceptable and spontaneous ventilation Hydration status: euvolemic Nausea/Vomiting: controlled No notable events documented. Patient can be discharged once all PACU criteria has been met. [facility] 04-25-2023 Note Patient: Jaime Ma Procedure Summary Date: 04/25/23 Room / Location: [facility] [place] [facility] / [facility] Gastroenterology Anesthesia Start: 7 Anesthesia Stop: 0851 Procedures: EGD, COLONOSCOPY COLONOSCOPY Diagnosis: GERD (gastroesophageal reflux disease) Anemia Colon cancer screening (GERD (gastroesophageal reflux disease) [K21.9]) (Anemia [D64.9]) (Colon cancer screening [Z12.11]) Providers: Florentino Arzola Responsible Provider: Kelly Gooden CRNA Anesthesia Type: TIVA ASA Status: 2 Anesthesia Type: TIVA Vitals Value Taken Time BP 109/67 04/25/23 0845 Temp 36.4 ?C (97.5 ?F) 04/25/23 0845 Pulse 72 04/25/23 0845 Resp 16 04/25/23 0845 SpO2 99 % 04/25/23 0845 Anesthesia Post Evaluation Patient location during evaluation: PACU Patient participation: complete - patient participated Level of consciousness: awake and alert Pain management: satisfactory to patient Multimodal analgesia pain management approach Airway patency: patent Two or more strategies used to mitigate risk of obstructive sleep apnea Cardiovascular status: acceptable and hemodynamically stable Respiratory status: acceptable Hydration status: acceptable No notable events documented. MIPS #[id number] PONV Patient did not receive an inhalational anesthetic (XX430) MIPS # 424 Perioperative Temperature Management Anesthesia time was less than 60 minutes (4256F) MIPS #477 Multimodal Pain Management Not emergent case MIPS #404 Anesthesiology Smoking Abstinence The patient is not a current smoker (e.g. cigarette, cigar, pipe, e-cigarette/vaping/marijuana) If no stop here (G9644) I completed my handoff to the receiving clinician during which we: 1. Identified the patient 2. Identified the responsible provider 3. Reviewed the pertinent medical history 4. Discussed the surgical course 5. Reviewed intra-op anesthesia management and issues during anesthesia 6. Set expectations for post-procedure period 7. Allowed opportunity for questions and acknowledgement of understanding. [facility] 04-25-2023 Note Endoscopy Center- [facility] Patient Name: Jaime Ma Procedure Date: 04/25/2023 8:15 AM Gender: Female Date of : 1975 Age: 47 Admit Type: Outpatient Note Status: Finalized Endoscopist: Florentino Arzola , , Procedure: Upper GI endoscopy Indications: Iron deficiency anemia, Follow-up of gastro-esophageal reflux disease Findings: A 2 cm hiatal hernia, a mild Schatzki's ring over it and a 5 mm nodular lesion on Z line. Biopsies were taken with a cold forceps for histology. The ring was also broken more with biopsies of forceps since she has rare dysphagia symptoms. The entire examined stomach was normal. Biopsies were taken with a cold forceps for Helicobacter pylori testing. The first portion of the duodenum, second portion of the duodenum and third portion of the duodenum were normal. Biopsies were taken with a cold forceps for histology. Biopsies for histology were taken with a cold forceps for evaluation of celiac disease. Impression: - 2 cm hiatal hernia a mild Schatzki's ring over it broken with biopsies. A nodular lesion on Z line, biopsied. - Normal stomach. Biopsied. - Normal first portion of the duodenum, second portion of the duodenum and third portion of the duodenum. Biopsied. Recommendation: - Patient has a contact number available for emergencies. The signs and symptoms of potential delayed complications were discussed with the patient. Return to normal activities tomorrow. Written discharge instructions were provided to the patient. - Await pathology results. - Continue present medications. - Resume previous diet. - Return to referring physician as previously scheduled. - We proceeded with colonoscopy. Referring MD: Norm Soliz DO CC Letter to: PCP Medicines: Monitored Anesthesia Care Procedure: Pre-Anesthesia Assessment: - Prior to the procedure, a History and Physical was performed, and patient medications and allergies were reviewed. The patient is competent. The risks and benefits of the procedure and the sedation options and risks were discussed with the patient. All questions were answered and informed consent was obtained. Patient identification and proposed procedure were verified by the physician, the nurse and the drapery maker in the pre-procedure area in the procedure room in the endoscopy suite. Mental Status Examination: normal. Airway Examination: normal oropharyngeal airway and neck mobility. Respiratory Examination: clear to auscultation. CV Examination: normal. Prophylactic Antibiotics: The patient does not require prophylactic antibiotics. Prior Anticoagulants: The patient has taken no anticoagulant or antiplatelet agents. ASA Grade Assessment: III - A patient with severe systemic disease. After reviewing the risks and benefits, the patient was deemed in satisfactory condition to undergo the procedure. The anesthesia plan was to use monitored anesthesia care (MAC). Immediately prior to administration of medications, the patient was re-assessed for adequacy to receive sedatives. The heart rate, respiratory rate, oxygen saturations, blood pressure, adequacy of pulmonary ventilation, and response to care were monitored throughout the procedure. The physical status of the patient was re-assessed after the procedure. After obtaining informed consent, the endoscope was passed under direct vision. Throughout the procedure, the patient's blood pressure, pulse, and oxygen saturations were monitored continuously. The Endoscope was introduced through the mouth, and advanced to the third part of duodenum. The upper GI endoscopy was accomplished with ease. The patient tolerated the procedure well. Complications: No immediate complications. Estimated blood loss: None. Procedure Code(s): --- Professional --- 44230, Esophagogastroduodenoscopy, flexible, transoral; with biopsy, single or multiple --- Technical --- 04282, Esophagogastroduodenoscopy, flexible, transoral; with biopsy, single or multiple Diagnosis Code(s): --- Professional --- K44.9, Diaphragmatic hernia without obstruction or gangrene D50.9, Iron deficiency anemia, unspecified K21.9, Gastro-esophageal reflux disease without esophagitis --- Technical --- K44.9, Diaphragmatic hernia without obstruction or gangrene D50.9, Iron deficiency anemia, unspecified K21.9, Gastro-esophageal reflux disease without esophagitis CPT copyright 2021 [employer]. All rights reserved. The codes documented in this report are preliminary and upon coping machine operator review may be revised to meet current compliance requirements. Attending Participation: I personally performed the entire procedure. Florentino Arzola, 04/25/2023 8:18:52 AM This report has been signed electronically. Number of Addenda: 0 Note Initiated On: 04/25/2023 6:18 AM [facility] 04-25-2023 Note Patient: Jaime Ma Procedure Information Date/Time: 04/25/23 0815 Procedures: EGD, COLONOSCOPY - egd w/colon 60 minutes COLONOSCOPY - colon w/egd 60 minutes Location: [place] [id number] / [facility] Gastroenterology Providers: Florentino Arzola Relevant Problems Anesthesia (+) H/O fibromyalgia (+) BOO on CPAP Cardio (+) Hypercholesterolemia Neuro/Psych (+) Anxiety and depression Pulmonary (+) BOO on CPAP Past Medical History: Past Medical History: 1982: ALL (acute lymphocytic leukemia) (HCC) 2015: Anxiety and depression Comment: [facility]in 2017 04/2013: Basal cell carcinoma of scalp Comment: Licha Bah 07/2022: Breast cancer screening 02/2021: COVID-19 virus infection No date: Family history of thyroid cancer Comment: sister age 35 2004: H/O fibromyalgia No date: Hx antineoplastic chemo 08/23/2022: Hypercholesterolemia 11/11/2018: Menorrhagia with regular cycle 01/2022: Multiple thyroid nodules Comment: needs rech U/S 02/18 2016: BOO on CPAP Comment: Refecas No date: Personal history of irradiation 05/2022: Routine gynecological examination Comment: Dr.Amy Zelaya 10/2021: Shingles Comment: Left T7 Past Surgical History: Past Surgical History: 2012: SKIN CANCER EXCISION Comment: scalp BCC- Chrissie Social History: TOBACCO: reports that she has never smoked. She has never used smokeless tobacco. ETOH: reports no history of alcohol use. Social History Substance and Sexual Activity Drug Use Never Family History: Family History Problem Relation Name Age of Onset ? Anxiety disorder Mother mardel ? Hyperlipidemia Mother mardel ? Depression Mother mardel ? Asthma Mother mardel mild cough variant asthma ? Deep vein thrombosis Father Jaxon Cordon post op ? Atrial fibrillation Father Jaxon Cordon ? High Blood Pressure Father Jaxon Cordon ? Thyroid cancer Sister Gloria 35 ? No Known Problems Sister ? No Known Problems Sister ? No Known Problems Daughter ? No Known Problems Son ? No Known Problems Son ? No Known Problems Son ? Dementia Maternal Grandmother ? No Known Problems Maternal Grandfather ? Stroke Paternal Grandmother ? No Known Problems Paternal Grandfather Screening: Having periods Clinical information reviewed: Tobacco Allergies Meds Problems Med Hx Surg Hx Physical Exam Airway Mallampati: II TM distance: >3 FB Neck ROM: full Mouth Open: normalendotracheal tube not in place Cardiovascular Dental dentition normal Pulmonary Abdominal Anesthesia Plan patient is NPO appropriate Any family history or previous problems with anesthesia no ASA 2 TIVA Any family history or previous problems with anesthesia no The patient is not a current smoker. Anesthetic plan and risks discussed with patient. BOO Screening Labs: Lab Results Component Value Date WBC 10.5 03/04/2023 HGB 10.3 (L) 03/04/2023 HCT 34.9 (L) 03/04/2023 MCV 76.0 (L) 03/04/2023 PLT 377 03/04/2023 Lab Results Component Value Date NA 139 02/09/2022 K 4.2 02/09/2022 CL 104 02/09/2022 CO2 29 02/22/2023 BUN 11 02/22/2023 CREATININE 0.64 02/22/2023 GLUCOSE 92 02/22/2023 CALCIUM 9.9 02/22/2023 PROT 7.0 02/22/2023 ALKPHOS 46 02/22/2023 AST 17 02/22/2023 ALT 15 02/22/2023 EGFR 110 02/22/2023 GLOB 2.6 02/22/2023 No echocardiogram results found for the past 14 days 02/09/22 CVHX EKG 12-LEAD (Final) [facility] 04-25-2023 Miscellaneous Notes Pt and family verbalized understanding of recovery instructions, pt verbalized a readiness to be discharged home. Pt discharged home via wheelchair accompanied by RN/volunteer. Pt has had all their belongings returned to them at discharge Pt recieved from ENDOSCOPY to phase 2 via cart with INSTRUMENT AND CONTROL TECHNICIAN in attendance, pt has spontaneous respirations,pt place on monitor with alarms on, [facility] Jaime Ma Procedure Date: 04/25/2023 8:15 AM Gender: Female Date of : 1975 Age: 47 Admit Type: Outpatient Note Status: Finalized Endoscopist: Florentino Arzola , , Procedure: Upper GI endoscopy Indications: Iron deficiency anemia, Follow-up of gastro-esophageal reflux disease Findings: A 2 cm hiatal hernia, a mild Schatzki's ring over it and a 5 mm nodular lesion on Z line. Biopsies were taken with a cold forceps for histology. The ring was also broken more with biopsies of forceps since she has rare dysphagia symptoms. The entire examined stomach was normal. Biopsies were taken with a cold forceps for Helicobacter pylori testing. The first portion of the duodenum, second portion of the duodenum and third portion of the duodenum were normal. Biopsies were taken with a cold forceps for histology. Biopsies for histology were taken with a cold forceps for evaluation of celiac disease. Impression: - 2 cm hiatal hernia a mild Schatzki's ring over it broken with biopsies. A nodular lesion on Z line, biopsied. - Normal stomach. Biopsied. - Normal first portion of the duodenum, second portion of the duodenum and third portion of the duodenum. Biopsied. Recommendation: - Patient has a contact number available for emergencies. The signs and symptoms of potential delayed complications were discussed with the patient. Return to normal activities tomorrow. Written discharge instructions were provided to the patient. - Await pathology results. - Continue present medications. - Resume previous diet. - Return to referring physician as previously scheduled. - We proceeded with colonoscopy. Referring MD: Norm Soliz DO CC Letter to: PCP Medicines: Monitored Anesthesia Care Procedure: Pre-Anesthesia Assessment: - Prior to the procedure, a History and Physical was performed, and patient medications and allergies were reviewed. The patient is competent. The risks and benefits of the procedure and the sedation options and risks were discussed with the patient. All questions were answered and informed consent was obtained. Patient identification and proposed procedure were verified by the physician, the nurse and the drapery maker in the pre-procedure area in the procedure room in the endoscopy suite. Mental Status Examination: normal. Airway Examination: normal oropharyngeal airway and neck mobility. Respiratory Examination: clear to auscultation. CV Examination: normal. Prophylactic Antibiotics: The patient does not require prophylactic antibiotics. Prior Anticoagulants: The patient has taken no anticoagulant or antiplatelet agents. ASA Grade Assessment: III - A patient with severe systemic disease. After reviewing the risks and benefits, the patient was deemed in satisfactory condition to undergo the procedure. The anesthesia plan was to use monitored anesthesia care (MAC). Immediately prior to administration of medications, the patient was re-assessed for adequacy to receive sedatives. The heart rate, respiratory rate, oxygen saturations, blood pressure, adequacy of pulmonary ventilation, and response to care were monitored throughout the procedure. The physical status of the patient was re-assessed after the procedure. After obtaining informed consent, the endoscope was passed under direct vision. Throughout the procedure, the patient's blood pressure, pulse, and oxygen saturations were monitored continuously. The Endoscope was introduced through the mouth, and advanced to the third part of duodenum. The upper GI endoscopy was accomplished with ease. The patient tolerated the procedure well. Complications: No immediate complications. Estimated blood loss: None. Procedure Code(s): --- Professional --- 84276, Esophagogastroduodenoscopy, flexible, transoral; with biopsy, single or multiple --- Technical --- 10493, Esophagogastroduodenoscopy, flexible, transoral; with biopsy, single or multiple Diagnosis Code(s): --- Professional --- K44.9, Diaphragmatic hernia without obstruction or gangrene D50.9, Iron deficiency anemia, unspecified K21.9, Gastro-esophageal reflux disease without esophagitis --- Technical --- K44.9, Diaphragmatic hernia without obstruction or gangrene D50.9, Iron deficiency anemia, unspecified K21.9, Gastro-esophageal reflux disease without esophagitis CPT copyright 2021 [employer]. All rights reserved. The codes documented in this report are preliminary and upon coping machine operator review may be revised to meet current compliance requirements. Attending Participation: I personally performed the entire procedure. Florentino Arzola, 04/25/2023 8:18:52 AM This report has been signed electronically. Number of Addenda: 0 Note Initiated On: 04/25/2023 6:18 AM [facility] Jaime Ma Procedure Date: 04/25/2023 6:18 AM Gender: Female Date of : 1975 Age: 47 Admit Type: Outpatient Note Status: Finalized Endoscopist: Florentino Arzola , , Procedure: Colonoscopy Indications: Screening for colorectal malignant neoplasm Findings: A 3 mm polyp was found in the cecum. The polyp was sessile. The polyp was removed with a cold biopsy forceps and retrieved. Non-bleeding external and internal hemorrhoids were found during retroflexion. The hemorrhoids were small and Grade I (internal hemorrhoids that do not prolapse). The terminal ileum appeared normal. The exam was otherwise normal throughout the examined colon. Impression: - One 3 mm polyp in the cecum, removed with a cold biopsy forceps. Resected and retrieved. - Non-bleeding external and internal hemorrhoids. - The examined portion of the ileum was normal. Recommendation: - Patient has a contact number available for emergencies. The signs and symptoms of potential delayed complications were discussed with the patient. Return to normal activities tomorrow. Written discharge instructions were provided to the patient. - Await pathology results. - Continue present medications. - Resume previous diet. - High fiber diet. - Repeat colonoscopy is recommended. The colonoscopy date will be determined after pathology results from today's exam become available for review. - Return to referring physician as previously scheduled. Referring MD: Norm Soliz DO CC Letter to: PCP Medicines: Monitored Anesthesia Care Procedure: Pre-Anesthesia Assessment: - Prior to the procedure, a History and Physical was performed, and patient medications and allergies were reviewed. The patient is competent. The risks and benefits of the procedure and the sedation options and risks were discussed with the patient. All questions were answered and informed consent was obtained. Patient identification and proposed procedure were verified by the physician, the nurse and the drapery maker in the pre-procedure area in the procedure room in the endoscopy suite. Mental Status Examination: alert and oriented. Airway Examination: normal oropharyngeal airway and neck mobility. Respiratory Examination: clear to auscultation. CV Examination: normal. Prophylactic Antibiotics: The patient does not require prophylactic antibiotics. Prior Anticoagulants: The patient has taken no anticoagulant or antiplatelet agents. ASA Grade Assessment: III - A patient with severe systemic disease. After reviewing the risks and benefits, the patient was deemed in satisfactory condition to undergo the procedure. The anesthesia plan was to use monitored anesthesia care (MAC). Immediately prior to administration of medications, the patient was re-assessed for adequacy to receive sedatives. The heart rate, respiratory rate, oxygen saturations, blood pressure, adequacy of pulmonary ventilation, and response to care were monitored throughout the procedure. The physical status of the patient was re-assessed after the procedure. After I obtained informed consent, the scope was passed under direct vision. Throughout the procedure, the patient's blood pressure, pulse, and oxygen saturations were monitored continuously. The Colonoscope was introduced through the anus and advanced to the terminal ileum. The colonoscopy was performed with ease. The patient tolerated the procedure well. The quality of the bowel preparation was good. The terminal ileum, ileocecal valve, appendiceal orifice, and rectum were photographed. Complications: No immediate complications. Procedure Code(s): --- Professional --- 61162, Colonoscopy, flexible; with removal of tumor(s), polyp(s), or other lesion(s) by snare technique --- Technical --- 96857, Colonoscopy, flexible; with removal of tumor(s), polyp(s), or other lesion(s) by snare technique Diagnosis Code(s): --- Professional --- Z12.11, Encounter for screening for malignant neoplasm of colon D12.0, Benign neoplasm of cecum K64.0, First degree hemorrhoids --- Technical --- Z12.11, Encounter for screening for malignant neoplasm of colon D12.0, Benign neoplasm of cecum K64.0, First degree hemorrhoids CPT copyright 2021 [employer]. All rights reserved. The codes documented in this report are preliminary and upon coping machine operator review may be revised to meet current compliance requirements. Attending Participation: I personally performed the entire procedure. Florentino Arzola, 04/25/2023 8:44:19 AM This report has been signed electronically. Number of Addenda: 0 Note Initiated On: 04/25/2023 6:18 AM documented in this encounter [facility] 04-25-2023 Note Formatting of this n ote might be different from the original. Pt and family verbalized understanding of recovery instructions, pt verbalized a readiness to be discharged home. Pt discharged home via wheelchair accompanied by RN/volunteer. Pt has had all their belongings returned to them at discharge [facility] 04-25-2023 Note Formatting of this n ote might be different from the original. Pt and family verbalized understanding of recovery instructions, pt verbalized a readiness to be discharged home. Pt discharged home via wheelchair accompanied by RN/volunteer. Pt has had all their belongings returned to them at discharge [facility] 04-25-2023 Note GASTROENTEROLOGY PHY SICIAN PRE PROCEDURE NOTE HPI: Jaime Ma is a 47 y.o. female who is here today for planned endoscopic examination. All: Allergies Allergen Reactions Sulfa Antibiotics Hives Other reaction(s): Unknown Other reaction(s): Other Meds: No current facility-administered medications on file prior to encounter. Current Outpatient Medications on File Prior to Encounter Medication Sig Dispense Refill fluorometholone (FML) 0.1 % ophthalmic suspension INSTILL 1 DROP INTO BOTH EYES EVERY NIGHT FLUoxetine (PROzac) 10 MG capsule Take 1 capsule (10 mg) by mouth every morning for 90 doses. 90 capsule 1 omeprazole (PriLOSEC) [address] capsule Take 1 capsule (40 mg) by mouth daily. 90 capsule 1 rosuvastatin (Crestor) 5 MG tablet Take 1 tablet (5 mg) by mouth every morning for 180 doses. 90 tablet 1 traZODone (Desyrel) 50 MG tablet Take 1 tablet (50 mg) by mouth Nightly for 180 doses. 90 tablet 1 PMH: Past Medical History: Diagnosis Date ALL (acute lymphocytic leukemia) (HCC) 1982 Anxiety and depression 2014 Dr. Conroy, [facility]in 2017 Basal cell carcinoma of scalp 04/2013 [facility] Breast cancer screening 07/2022 COVID-19 virus infection 02/2021 Family history of thyroid cancer sister age 35 H/O fibromyalgia 2004 Hx antineoplastic chemo Hypercholesterolemia 08/23/2022 Menorrhagia with regular cycle 11/11/2018 Multiple thyroid nodules 01/2022 needs rech U/S 02/17 BOO on CPAP 2016 Refecas Personal history of irradiation Routine gynecological examination 05/2022 Dr.Amy Garcia Horton 10/2021 Left T7 No reactions to anesthesia in the past. Airway patent PE: VS: There were no vitals taken for this visit. There is no height or weight on file to calculate BMI. General: Patient in no distress CVS: Regular rate & rhythm Respiratory: Clear to auscultation Abdomen: soft and non tender ASA score : 3 ASSESSMENT & PLAN: Risks & benefits of the endoscopic procedure(s) and MAC /GA sedation were personally explained to patient / family along with alternatives to the procedure in detail including radiological and surgical options. The risks of the endoscopic procedure include but are not limited to risk from anesthesia, respiratory failure, infection, bleeding, perforation, pancreatitis with its sequelae , damage to the adjacent organs, missed lesions and need for further procedure, surgery or interventional radiological intervention, from procedure or complications. We made a shared decision to proceed with planned procedure []EGD [x]Colonoscopy []EGD&Colonoscopy Florentino Arzola MD Gastroenterology [facility] 04-25-2023 Note Formatting of this n ote might be different from the original. Pt recieved from ENDOSCOPY to phase 2 via cart with INSTRUMENT AND CONTROL TECHNICIAN in attendance, pt has spontaneous respirations,pt place on monitor with alarms on, will continue to monitor [facility] 04-25-2023 Note Formatting of this n ote might be different from the original. Pt recieved from ENDOSCOPY to phase 2 via cart with INSTRUMENT AND CONTROL TECHNICIAN in attendance, pt has spontaneous respirations,pt place on monitor with alarms on, will continue to monitor [facility] 04-25-2023 Note [facility] Name: Jaime Ma Procedure Date: 04/25/2023 6:18 AM Gender: Female Date of : 1975 Age: 47 Admit Type: Outpatient Note Status: Finalized Endoscopist: Florentino Arzola , , Procedure: Colonoscopy Indications: Screening for colorectal malignant neoplasm Findings: A 3 mm polyp was found in the cecum. The polyp was sessile. The polyp was removed with a cold biopsy forceps and retrieved. Non-bleeding external and internal hemorrhoids were found during retroflexion. The hemorrhoids were small and Grade I (internal hemorrhoids that do not prolapse). The terminal ileum appeared normal. The exam was otherwise normal throughout the examined colon. Impression: - One 3 mm polyp in the cecum, removed with a cold biopsy forceps. Resected and retrieved. - Non-bleeding external and internal hemorrhoids. - The examined portion of the ileum was normal. Recommendation: - Patient has a contact number available for emergencies. The signs and symptoms of potential delayed complications were discussed with the patient. Return to normal activities tomorrow. Written discharge instructions were provided to the patient. - Await pathology results. - Continue present medications. - Resume previous diet. - High fiber diet. - Repeat colonoscopy is recommended. The colonoscopy date will be determined after pathology results from today's exam become available for review. - Return to referring physician as previously scheduled. Referring MD: Norm Soliz DO CC Letter to: PCP Medicines: Monitored Anesthesia Care Procedure: Pre-Anesthesia Assessment: - Prior to the procedure, a History and Physical was performed, and patient medications and allergies were reviewed. The patient is competent. The risks and benefits of the procedure and the sedation options and risks were discussed with the patient. All questions were answered and informed consent was obtained. Patient identification and proposed procedure were verified by the physician, the nurse and the drapery maker in the pre-procedure area in the procedure room in the endoscopy suite. Mental Status Examination: alert and oriented. Airway Examination: normal oropharyngeal airway and neck mobility. Respiratory Examination: clear to auscultation. CV Examination: normal. Prophylactic Antibiotics: The patient does not require prophylactic antibiotics. Prior Anticoagulants: The patient has taken no anticoagulant or antiplatelet agents. ASA Grade Assessment: III - A patient with severe systemic disease. After reviewing the risks and benefits, the patient was deemed in satisfactory condition to undergo the procedure. The anesthesia plan was to use monitored anesthesia care (MAC). Immediately prior to administration of medications, the patient was re-assessed for adequacy to receive sedatives. The heart rate, respiratory rate, oxygen saturations, blood pressure, adequacy of pulmonary ventilation, and response to care were monitored throughout the procedure. The physical status of the patient was re-assessed after the procedure. After I obtained informed consent, the scope was passed under direct vision. Throughout the procedure, the patient's blood pressure, pulse, and oxygen saturations were monitored continuously. The Colonoscope was introduced through the anus and advanced to the terminal ileum. The colonoscopy was performed with ease. The patient tolerated the procedure well. The quality of the bowel preparation was good. The terminal ileum, ileocecal valve, appendiceal orifice, and rectum were photographed. Complications: No immediate complications. Procedure Code(s): --- Professional --- 83488, Colonoscopy, flexible; with removal of tumor(s), polyp(s), or other lesion(s) by snare technique --- Technical --- 83129, Colonoscopy, flexible; with removal of tumor(s), polyp(s), or other lesion(s) by snare technique Diagnosis Code(s): --- Professional --- Z12.11, Encounter for screening for malignant neoplasm of colon D12.0, Benign neoplasm of cecum K64.0, First degree hemorrhoids --- Technical --- Z12.11, Encounter for screening for malignant neoplasm of colon D12.0, Benign neoplasm of cecum K64.0, First degree hemorrhoids CPT copyright 2021 [employer]. All rights reserved. The codes documented in this report are preliminary and upon coping machine operator review may be revised to meet current compliance requirements. Attending Participation: I personally performed the entire procedure. Florentino Arzola, 04/25/2023 8:44:19 AM This report has been signed electronically. Number of Addenda: 0 Note Initiated On: 04/25/2023 6:18 AM [facility] 04-25-2023 Note Formatting of this n ote might be different from the original. [facility] Jaime [facility] Procedure Date: 04/25/2023 8:15 AM Gender: Female Date of : 1975 Age: 47 Admit Type: Outpatient Note Status: Finalized Endoscopist: Florentino Arzola , , Procedure: Upper GI endoscopy Indications: Iron deficiency anemia, Follow-up of gastro-esophageal reflux disease Findings: A 2 cm hiatal hernia, a mild Schatzki's ring over it and a 5 mm nodular lesion on Z line. Biopsies were taken with a cold forceps for histology. The ring was also broken more with biopsies of forceps since she has rare dysphagia symptoms. The entire examined stomach was normal. Biopsies were taken with a cold forceps for Helicobacter pylori testing. The first portion of the duodenum, second portion of the duodenum and third portion of the duodenum were normal. Biopsies were taken with a cold forceps for histology. Biopsies for histology were taken with a cold forceps for evaluation of celiac disease. Impression: - 2 cm hiatal hernia a mild Schatzki's ring over it broken with biopsies. A nodular lesion on Z line, biopsied. - Normal stomach. Biopsied. - Normal first portion of the duodenum, second portion of the duodenum and third portion of the duodenum. Biopsied. Recommendation: - Patient has a contact number available for emergencies. The signs and symptoms of potential delayed complications were discussed with the patient. Return to normal activities tomorrow. Written discharge instructions were provided to the patient. - Await pathology results. - Continue present medications. - Resume previous diet. - Return to referring physician as previously scheduled. - We proceeded with colonoscopy. Referring MD: Norm Soliz DO CC Letter to: PCP Medicines: Monitored Anesthesia Care Procedure: Pre-Anesthesia Assessment: - Prior to the procedure, a History and Physical was performed, and patient medications and allergies were reviewed. The patient is competent. The risks and benefits of the procedure and the sedation options and risks were discussed with the patient. All questions were answered and informed consent was obtained. Patient identification and proposed procedure were verified by the physician, the nurse and the drapery maker in the pre-procedure area in the procedure room in the endoscopy suite. Mental Status Examination: normal. Airway Examination: normal oropharyngeal airway and neck mobility. Respiratory Examination: clear to auscultation. CV Examination: normal. Prophylactic Antibiotics: The patient does not require prophylactic antibiotics. Prior Anticoagulants: The patient has taken no anticoagulant or antiplatelet agents. ASA Grade Assessment: III - A patient with severe systemic disease. After reviewing the risks and benefits, the patient was deemed in satisfactory condition to undergo the procedure. The anesthesia plan was to use monitored anesthesia care (MAC). Immediately prior to administration of medications, the patient was re-assessed for adequacy to receive sedatives. The heart rate, respiratory rate, oxygen saturations, blood pressure, adequacy of pulmonary ventilation, and response to care were monitored throughout the procedure. The physical status of the patient was re-assessed after the procedure. After obtaining informed consent, the endoscope was passed under direct vision. Throughout the procedure, the patient's blood pressure, pulse, and oxygen saturations were monitored continuously. The Endoscope was introduced through the mouth, and advanced to the third part of duodenum. The upper GI endoscopy was accomplished with ease. The patient tolerated the procedure well. Complications: No immediate complications. Estimated blood loss: None. Procedure Code(s): --- Professional --- 73874, Esophagogastroduodenoscopy, flexible, transoral; with biopsy, single or multiple --- Technical --- 58415, Esophagogastroduodenoscopy, flexible, transoral; with biopsy, single or multiple Diagnosis Code(s): --- Professional --- K44.9, Diaphragmatic hernia without obstruction or gangrene D50.9, Iron deficiency anemia, unspecified K21.9, Gastro-esophageal reflux disease without esophagitis --- Technical --- K44.9, Diaphragmatic hernia without obstruction or gangrene D50.9, Iron deficiency anemia, unspecified K21.9, Gastro-esophageal reflux disease without esophagitis CPT copyright 2021 [employer]. All rights reserved. The codes documented in this report are preliminary and upon coping machine operator review may be revised to meet current compliance requirements. Attending Participation: I personally performed the entire procedure. Florentino Arzola, 04/25/2023 8:18:52 AM This report has been signed electronically. Number of Addenda: 0 Note Initiated On: 04/25/2023 6:18 AM [facility] 04-25-2023 Note Formatting of this n ote might be different from the original. [facility] Jaime Ma Procedure Date: 04/25/2023 8:15 AM Gender: Female Date of : 1975 Age: 47 Admit Type: Outpatient Note Status: Finalized Endoscopist: Florentino Arzola , , Procedure: Upper GI endoscopy Indications: Iron deficiency anemia, Follow-up of gastro-esophageal reflux disease Findings: A 2 cm hiatal hernia, a mild Schatzki's ring over it and a 5 mm nodular lesion on Z line. Biopsies were taken with a cold forceps for histology. The ring was also broken more with biopsies of forceps since she has rare dysphagia symptoms. The entire examined stomach was normal. Biopsies were taken with a cold forceps for Helicobacter pylori testing. The first portion of the duodenum, second portion of the duodenum and third portion of the duodenum were normal. Biopsies were taken with a cold forceps for histology. Biopsies for histology were taken with a cold forceps for evaluation of celiac disease. Impression: - 2 cm hiatal hernia a mild Schatzki's ring over it broken with biopsies. A nodular lesion on Z line, biopsied. - Normal stomach. Biopsied. - Normal first portion of the duodenum, second portion of the duodenum and third portion of the duodenum. Biopsied. Recommendation: - Patient has a contact number available for emergencies. The signs and symptoms of potential delayed complications were discussed with the patient. Return to normal activities tomorrow. Written discharge instructions were provided to the patient. - Await pathology results. - Continue present medications. - Resume previous diet. - Return to referring physician as previously scheduled. - We proceeded with colonoscopy. Referring MD: Norm Soliz DO CC Letter to: PCP Medicines: Monitored Anesthesia Care Procedure: Pre-Anesthesia Assessment: - Prior to the procedure, a History and Physical was performed, and patient medications and allergies were reviewed. The patient is competent. The risks and benefits of the procedure and the sedation options and risks were discussed with the patient. All questions were answered and informed consent was obtained. Patient identification and proposed procedure were verified by the physician, the nurse and the drapery maker in the pre-procedure area in the procedure room in the endoscopy suite. Mental Status Examination: normal. Airway Examination: normal oropharyngeal airway and neck mobility. Respiratory Examination: clear to auscultation. CV Examination: normal. Prophylactic Antibiotics: The patient does not require prophylactic antibiotics. Prior Anticoagulants: The patient has taken no anticoagulant or antiplatelet agents. ASA Grade Assessment: III - A patient with severe systemic disease. After reviewing the risks and benefits, the patient was deemed in satisfactory condition to undergo the procedure. The anesthesia plan was to use monitored anesthesia care (MAC). Immediately prior to administration of medications, the patient was re-assessed for adequacy to receive sedatives. The heart rate, respiratory rate, oxygen saturations, blood pressure, adequacy of pulmonary ventilation, and response to care were monitored throughout the procedure. The physical status of the patient was re-assessed after the procedure. After obtaining informed consent, the endoscope was passed under direct vision. Throughout the procedure, the patient's blood pressure, pulse, and oxygen saturations were monitored continuously. The Endoscope was introduced through the mouth, and advanced to the third part of duodenum. The upper GI endoscopy was accomplished with ease. The patient tolerated the procedure well. Complications: No immediate complications. Estimated blood loss: None. Procedure Code(s): --- Professional --- 02615, Esophagogastroduodenoscopy, flexible, transoral; with biopsy, single or multiple --- Technical --- 15817, Esophagogastroduodenoscopy, flexible, transoral; with biopsy, single or multiple Diagnosis Code(s): --- Professional --- K44.9, Diaphragmatic hernia without obstruction or gangrene D50.9, Iron deficiency anemia, unspecified K21.9, Gastro-esophageal reflux disease without esophagitis --- Technical --- K44.9, Diaphragmatic hernia without obstruction or gangrene D50.9, Iron deficiency anemia, unspecified K21.9, Gastro-esophageal reflux disease without esophagitis CPT copyright 2021 [employer]. All rights reserved. The codes documented in this report are preliminary and upon coping machine operator review may be revised to meet current compliance requirements. Attending Participation: I personally performed the entire procedure. Florentino Arzola, 04/25/2023 8:18:52 AM This report has been signed electronically. Number of Addenda: 0 Note Initiated On: 04/25/2023 6:18 AM [facility] [employer] 04-25-2023 History and physical note GASTROENTEROLOGY PHYSICIAN PRE PROCEDURE NOTE HPI: Jaime Ma is a 47 y.o. female who is here today for planned endoscopic examination. All: Allergies Allergen Reactions Sulfa Antibiotics Hives Other reaction(s): Unknown Other reaction(s): Other Meds: No current facility-administered medications on file prior to encounter. Current Outpatient Medications on File Prior to Encounter Medication Sig Dispense Refill fluorometholone (FML) 0.1 % ophthalmic suspension INSTILL 1 DROP INTO BOTH EYES EVERY NIGHT FLUoxetine (PROzac) 10 MG capsule Take 1 capsule (10 mg) by mouth every morning for 90 doses. 90 capsule 1 omeprazole (PriLOSEC) [address] capsule Take 1 capsule (40 mg) by mouth daily. 90 capsule 1 rosuvastatin (Crestor) 5 MG tablet Take 1 tablet (5 mg) by mouth every morning for 180 doses. 90 tablet 1 traZODone (Desyrel) 50 MG tablet Take 1 tablet (50 mg) by mouth Nightly for 180 doses. 90 tablet 1 PMH: Past Medical History: Diagnosis Date ALL (acute lymphocytic leukemia) (HCC) 1982 Anxiety and depression 2014 Dr. Conroy [facility]in 2017 Basal cell carcinoma of scalp 04/2013 [facility] Breast cancer screening 07/2022 COVID-19 virus infection 02/2021 Family history of thyroid cancer sister age 35 H/O fibromyalgia 2004 Hx antineoplastic chemo Hypercholesterolemia 08/23/2022 Menorrhagia with regular cycle 11/11/2018 Multiple thyroid nodules 01/2022 needs rech U/S 02/17 BOO on CPAP 2016 Refecas Personal history of irradiation Routine gynecological examination 05/2022 Dr.Amy Zelaya Shinkarla 10/2021 Left T7 No reactions to anesthesia in the past. Airway patent PE: VS: There were no vitals taken for this visit. There is no height or weight on file to calculate BMI. General: Patient in no distress CVS: Regular rate & rhythm Respiratory: Clear to auscultation Abdomen: soft and non tender ASA score : 3 ASSESSMENT & PLAN: Risks & benefits of the endoscopic procedure(s) and MAC /GA sedation were personally explained to patient / family along with alternatives to the procedure in detail including radiological and surgical options. The risks of the endoscopic procedure include but are not limited to risk from anesthesia, respiratory failure, infection, bleeding, perforation, pancreatitis with its sequelae , damage to the adjacent organs, missed lesions and need for further procedure, surgery or interventional radiological intervention, from procedure or complications. We made a shared decision to proceed with planned procedure []EGD [x]Colonoscopy []EGD&Colonoscopy Florentino Arzola MD Gastroenterology [facility] Phone: 04-25-2023 History and physical note GASTROENTEROLOGY PHYSICIAN PRE PROCEDURE NOTE HPI: Jaime Ma is a 47 y.o. female who is here today for planned endoscopic examination. All: Allergies Allergen Reactions Sulfa Antibiotics Hives Other reaction(s): Unknown Other reaction(s): Other Meds: No current facility-administered medications on file prior to encounter. Current Outpatient Medications on File Prior to Encounter Medication Sig Dispense Refill fluorometholone (FML) 0.1 % ophthalmic suspension INSTILL 1 DROP INTO BOTH EYES EVERY NIGHT FLUoxetine (PROzac) 10 MG capsule Take 1 capsule (10 mg) by mouth every morning for 90 doses. 90 capsule 1 omeprazole (PriLOSEC) [address] capsule Take 1 capsule (40 mg) by mouth daily. 90 capsule 1 rosuvastatin (Crestor) 5 MG tablet Take 1 tablet (5 mg) by mouth every morning for 180 doses. 90 tablet 1 traZODone (Desyrel) 50 MG tablet Take 1 tablet (50 mg) by mouth Nightly for 180 doses. 90 tablet 1 PMH: Past Medical History: Diagnosis Date ALL (acute lymphocytic leukemia) (HCC) 1982 Anxiety and depression 2014 Dr. Conroy, [facility]in 2017 Basal cell carcinoma of scalp 04/2013 [facility] Breast cancer screening 07/2022 COVID-19 virus infection 02/2021 Family history of thyroid cancer sister age 35 H/O fibromyalgia 2004 Hx antineoplastic chemo Hypercholesterolemia 08/23/2022 Menorrhagia with regular cycle 11/11/2018 Multiple thyroid nodules 01/2022 needs rech U/S 02/17 BOO on CPAP 2016 Refecas Personal history of irradiation Routine gynecological examination 05/2022 Dr.Amy Zelaya Shingljamaal 10/2021 Left T7 No reactions to anesthesia in the past. Airway patent PE: VS: There were no vitals taken for this visit. There is no height or weight on file to calculate BMI. General: Patient in no distress CVS: Regular rate & rhythm Respiratory: Clear to auscultation Abdomen: soft and non tender ASA score : 3 ASSESSMENT & PLAN: Risks & benefits of the endoscopic procedure(s) and MAC /GA sedation were personally explained to patient / family along with alternatives to the procedure in detail including radiological and surgical options. The risks of the endoscopic procedure include but are not limited to risk from anesthesia, respiratory failure, infection, bleeding, perforation, pancreatitis with its sequelae , damage to the adjacent organs, missed lesions and need for further procedure, surgery or interventional radiological intervention, from procedure or complications. We made a shared decision to proceed with planned procedure []EGD [x]Colonoscopy []EGD&Colonoscopy Florentino Arzola MD Gastroenterology documented in this encounter [facility] 04-25-2023 Note Formatting of this n ote might be different from the original. [facility]: Jaime Ma Procedure Date: 04/25/2023 6:18 AM Gender: Female Date of : 1975 Age: 47 Admit Type: Outpatient Note Status: Finalized Endoscopist: Florentino Arzola , , Procedure: Colonoscopy Indications: Screening for colorectal malignant neoplasm Findings: A 3 mm polyp was found in the cecum. The polyp was sessile. The polyp was removed with a cold biopsy forceps and retrieved. Non-bleeding external and internal hemorrhoids were found during retroflexion. The hemorrhoids were small and Grade I (internal hemorrhoids that do not prolapse). The terminal ileum appeared normal. The exam was otherwise normal throughout the examined colon. Impression: - One 3 mm polyp in the cecum, removed with a cold biopsy forceps. Resected and retrieved. - Non-bleeding external and internal hemorrhoids. - The examined portion of the ileum was normal. Recommendation: - Patient has a contact number available for emergencies. The signs and symptoms of potential delayed complications were discussed with the patient. Return to normal activities tomorrow. Written discharge instructions were provided to the patient. - Await pathology results. - Continue present medications. - Resume previous diet. - High fiber diet. - Repeat colonoscopy is recommended. The colonoscopy date will be determined after pathology results from today's exam become available for review. - Return to referring physician as previously scheduled. Referring MD: Norm Soliz DO CC Letter to: PCP Medicines: Monitored Anesthesia Care Procedure: Pre-Anesthesia Assessment: - Prior to the procedure, a History and Physical was performed, and patient medications and allergies were reviewed. The patient is competent. The risks and benefits of the procedure and the sedation options and risks were discussed with the patient. All questions were answered and informed consent was obtained. Patient identification and proposed procedure were verified by the physician, the nurse and the drapery maker in the pre-procedure area in the procedure room in the endoscopy suite. Mental Status Examination: alert and oriented. Airway Examination: normal oropharyngeal airway and neck mobility. Respiratory Examination: clear to auscultation. CV Examination: normal. Prophylactic Antibiotics: The patient does not require prophylactic antibiotics. Prior Anticoagulants: The patient has taken no anticoagulant or antiplatelet agents. ASA Grade Assessment: III - A patient with severe systemic disease. After reviewing the risks and benefits, the patient was deemed in satisfactory condition to undergo the procedure. The anesthesia plan was to use monitored anesthesia care (MAC). Immediately prior to administration of medications, the patient was re-assessed for adequacy to receive sedatives. The heart rate, respiratory rate, oxygen saturations, blood pressure, adequacy of pulmonary ventilation, and response to care were monitored throughout the procedure. The physical status of the patient was re-assessed after the procedure. After I obtained informed consent, the scope was passed under direct vision. Throughout the procedure, the patient's blood pressure, pulse, and oxygen saturations were monitored continuously. The Colonoscope was introduced through the anus and advanced to the terminal ileum. The colonoscopy was performed with ease. The patient tolerated the procedure well. The quality of the bowel preparation was good. The terminal ileum, ileocecal valve, appendiceal orifice, and rectum were photographed. Complications: No immediate complications. Procedure Code(s): --- Professional --- 96566, Colonoscopy, flexible; with removal of tumor(s), polyp(s), or other lesion(s) by snare technique --- Technical --- 35307, Colonoscopy, flexible; with removal of tumor(s), polyp(s), or other lesion(s) by snare technique Diagnosis Code(s): --- Professional --- Z12.11, Encounter for screening for malignant neoplasm of colon D12.0, Benign neoplasm of cecum K64.0, First degree hemorrhoids --- Technical --- Z12.11, Encounter for screening for malignant neoplasm of colon D12.0, Benign neoplasm of cecum K64.0, First degree hemorrhoids CPT copyright 2021 [employer]. All rights reserved. The codes documented in this report are preliminary and upon coping machine operator review may be revised to meet current compliance requirements. Attending Participation: I personally performed the entire procedure. Florentino Arzola, 04/25/2023 8:44:19 AM This report has been signed electronically. Number of Addenda: 0 Note Initiated On: 04/25/2023 6:18 AM [facility] 04-25-2023 Note Formatting of this n ote might be different from the original. [facility] Name: Jaime Ma Procedure Date: 04/25/2023 6:18 AM Gender: Female Date of : 1975 Age: 47 Admit Type: Outpatient Note Status: Finalized Endoscopist: Florentino Arzola , , Procedure: Colonoscopy Indications: Screening for colorectal malignant neoplasm Findings: A 3 mm polyp was found in the cecum. The polyp was sessile. The polyp was removed with a cold biopsy forceps and retrieved. Non-bleeding external and internal hemorrhoids were found during retroflexion. The hemorrhoids were small and Grade I (internal hemorrhoids that do not prolapse). The terminal ileum appeared normal. The exam was otherwise normal throughout the examined colon. Impression: - One 3 mm polyp in the cecum, removed with a cold biopsy forceps. Resected and retrieved. - Non-bleeding external and internal hemorrhoids. - The examined portion of the ileum was normal. Recommendation: - Patient has a contact number available for emergencies. The signs and symptoms of potential delayed complications were discussed with the patient. Return to normal activities tomorrow. Written discharge instructions were provided to the patient. - Await pathology results. - Continue present medications. - Resume previous diet. - High fiber diet. - Repeat colonoscopy is recommended. The colonoscopy date will be determined after pathology results from today's exam become available for review. - Return to referring physician as previously scheduled. Referring MD: Norm Soliz DO CC Letter to: PCP Medicines: Monitored Anesthesia Care Procedure: Pre-Anesthesia Assessment: - Prior to the procedure, a History and Physical was performed, and patient medications and allergies were reviewed. The patient is competent. The risks and benefits of the procedure and the sedation options and risks were discussed with the patient. All questions were answered and informed consent was obtained. Patient identification and proposed procedure were verified by the physician, the nurse and the drapery maker in the pre-procedure area in the procedure room in the endoscopy suite. Mental Status Examination: alert and oriented. Airway Examination: normal oropharyngeal airway and neck mobility. Respiratory Examination: clear to auscultation. CV Examination: normal. Prophylactic Antibiotics: The patient does not require prophylactic antibiotics. Prior Anticoagulants: The patient has taken no anticoagulant or antiplatelet agents. ASA Grade Assessment: III - A patient with severe systemic disease. After reviewing the risks and benefits, the patient was deemed in satisfactory condition to undergo the procedure. The anesthesia plan was to use monitored anesthesia care (MAC). Immediately prior to administration of medications, the patient was re-assessed for adequacy to receive sedatives. The heart rate, respiratory rate, oxygen saturations, blood pressure, adequacy of pulmonary ventilation, and response to care were monitored throughout the procedure. The physical status of the patient was re-assessed after the procedure. After I obtained informed consent, the scope was passed under direct vision. Throughout the procedure, the patient's blood pressure, pulse, and oxygen saturations were monitored continuously. The Colonoscope was introduced through the anus and advanced to the terminal ileum. The colonoscopy was performed with ease. The patient tolerated the procedure well. The quality of the bowel preparation was good. The terminal ileum, ileocecal valve, appendiceal orifice, and rectum were photographed. Complications: No immediate complications. Procedure Code(s): --- Professional --- 14592, Colonoscopy, flexible; with removal of tumor(s), polyp(s), or other lesion(s) by snare technique --- Technical --- 44097, Colonoscopy, flexible; with removal of tumor(s), polyp(s), or other lesion(s) by snare technique Diagnosis Code(s): --- Professional --- Z12.11, Encounter for screening for malignant neoplasm of colon D12.0, Benign neoplasm of cecum K64.0, First degree hemorrhoids --- Technical --- Z12.11, Encounter for screening for malignant neoplasm of colon D12.0, Benign neoplasm of cecum K64.0, First degree hemorrhoids CPT copyright 2021 [employer]. All rights reserved. The codes documented in this report are preliminary and upon coping machine operator review may be revised to meet current compliance requirements. Attending Participation: I personally performed the entire procedure. Florentino Arzola, 04/25/2023 8:44:19 AM This report has been signed electronically. Number of Addenda: 0 Note Initiated On: 04/25/2023 6:18 AM [facility] 04-02-2023 Note Faxed referral w/[facility] for pt to be sched - Their office policy is for pt to call and sched. (letter sent). [facility] 03-29-2023 Note Referral pended for dx and doctor's signature [facility] 03-29-2023 Note Norm SolizBaljinder 03/13/2023 6:54 AM EDT Patient thyroid nodule has increased in size. At this point she needs an ENT consultation for possible considerations of fine-needle biopsy. Post referral to . [facility] 03-29-2023 Telephone encounter Note Referral pended for dx and doctor's signature [facility] 03-29-2023 Miscellaneous Notes Referral pended for dx and doctor's signature Norm Mayberry MinniemckaylaDO 03/13/2023 6:54 AM EDT Patient thyroid nodule has increased in size. At this point she needs an ENT consultation for possible considerations of fine-needle biopsy. Post referral to . documented in this encounter [facility] 03-29-2023 Telephone encounter Note Norm Mayberry MinniemckaylaDO 03/13/2023 6:54 AM EDT Patient thyroid nodule has increased in size. At this point she needs an ENT consultation for possible considerations of fine-needle biopsy. Post referral to . [facility] 03-14-2023 History of Present illness Narrative Images from the original note were not included. [facility] GASTROENTEROLOGY [address] [facility] [id number] Dept: [phone] Dept Loc: [phone] Visit type: New Reason for Visit: Anemia, GERD, and Colon Cancer Screening Assessment and Plan Problem List Items Addressed This Visit None Visit Diagnoses Gastroesophageal reflux disease, unspecified whether esophagitis present - Primary Anemia, unspecified type Colon cancer screening GERD --symptoms well controlled with omeprazole 40 mg q day-continue --schedule EGD for surveillance (this is patient's first EGD) --avoid NSAIDS --EDU printed Anemia --newly noted 02/22/2023 on routine lab work --patient denies overt signs of bleeding --hgb stable, most recent up to 10.3 --schedule EGD and colonoscopy (with Miralax prep) for further evaluation, r/o GI bleeding, malignancy, etc --reviewed alarm symptoms and when to notify office --consider capsule endoscopy to rule out obscure GI bleed pending results of above Advised patient to call office with new or worsening symptoms, questions, or concerns. Patient verbalized understanding and agreement of plan. Follow up if symptoms worsen or fail to improve. Subjective Patient is referred by Dr. Soliz, re: GERD and colon cancer screening. Patient with many year hx of GERD, well controlled on omeprazole 40 mg q day. Notes prior to starting PPI, was having esophageal dysphagia. Was using daily NSAIDs for fibro pain, she recently stopped this. Denies nausea and vomiting. Anemia: new onset, last year CBC normal. 02/22/2023 hgb 8.7/hct 29.7-microcytic indices. Presented to [facility] with c/o fatigue in light of low blood counts. Stool guaiac negative for blood in ED. She was started on iron tablets BID. She denies overt signs of bleeding-no hematochezia, melena, and hematemesis. Denies heavy menstrual bleeding. Denies abdominal pain and weight-loss. Denies diarrhea and constipation. Notes had TX earlier this year so family has changed diet, eating minimal red meat. No prior EGD or colonoscopy. No anticoagulants. Anemia There has been no abdominal pain. GERD She reports no abdominal pain, no chest pain or no nausea. Review of Systems Constitutional: Negative for appetite change and unexpected weight change. HENT: Negative for trouble swallowing and voice change. Respiratory: Negative for shortness of breath. Cardiovascular: Negative for chest pain. Gastrointestinal: Negative for abdominal distention, abdominal pain, anal bleeding, blood in stool, constipation, diarrhea, nausea, rectal pain and vomiting. Genitourinary: Negative for difficulty urinating. Skin: Negative for color change. Neurological: Negative for weakness. Allergies Allergen Reactions Sulfa Antibiotics Hives Other reaction(s): Unknown Other reaction(s): Other Outpatient Medications Prior to Visit Medication Sig Dispense Refill ferrous sulfate 325 (65 Fe) MG tablet Take 325 mg by mouth. fluorometholone (FML) 0.1 % ophthalmic suspension INSTILL 1 DROP INTO BOTH EYES EVERY NIGHT FLUoxetine (PROzac) 10 MG capsule Take 1 capsule (10 mg) by mouth every morning for 90 doses. 90 capsule 1 omeprazole (PriLOSEC) [address] capsule Take 1 capsule (40 mg) by mouth daily. 90 capsule 1 rosuvastatin (Crestor) 5 MG tablet Take 1 tablet (5 mg) by mouth every morning for 180 doses. 90 tablet 1 traZODone (Desyrel) 50 MG tablet Take 1 tablet (50 mg) by mouth Nightly for 180 doses. 90 tablet 1 No facility-administered medications prior to visit. Patient Active Problem List Diagnosis Date Noted Family history of thyroid cancer 02/20/2023 Priority: Medium Overview Note: sister age 35 Hypercholesterolemia 08/23/2022 Priority: Medium Multiple thyroid nodules 02/19/2022 Priority: Medium Overview Note: Initial Ultrasound: 02/09/22- due for repeat on 02/09/23 Menorrhagia with regular cycle 11/11/2018 Anxiety and depression 08/13/2016 BOO on CPAP 07/26/2016 Overview Note: Refecas PMS (premenstrual syndrome) 08/24/2015 H/O fibromyalgia 08/24/2015 Social History Tobacco Use Smoking status: Never Smokeless tobacco: Never Substance Use Topics Alcohol use: No Alcohol/week: 0.0 standard drinks of alcohol Family History Problem Relation Name Age of Onset Anxiety disorder Mother mardel Hyperlipidemia Mother mardel Depression Mother mardel Asthma Mother mardel mild cough variant asthma Deep vein thrombosis Father Jaxon Cordon post op Atrial fibrillation Father Jaxon Cordon High Blood Pressure Father Jaxon Cordon Thyroid cancer Sister Gloria 35 No Known Problems Sister No Known Problems Sister No Known Problems Daughter No Known Problems Son No Known Problems Son No Known Problems Son Dementia Maternal Grandmother No Known Problems Maternal Grandfather Stroke Paternal Grandmother No Known Problems Paternal Grandfather Objective BP 103/65 Pulse 78 Ht 5' 5 (1.651 m) Wt 161 lb (73 kg) BMI 26.79 kg/m Physical Exam Constitutional: Appearance: Normal appearance. HENT: Head: Normocephalic. Eyes: General: No scleral icterus. Cardiovascular: Rate and Rhythm: Normal rate and regular rhythm. Pulmonary: Effort: Pulmonary effort is normal. Breath sounds: Normal breath sounds. Abdominal: General: Bowel sounds are normal. There is no distension. Palpations: Abdomen is soft. There is no mass. Tenderness: There is abdominal tenderness (diffuse abdominal ttp). There is no guarding or rebound. Hernia: No hernia is present. Skin: General: Skin is warm and dry. Coloration: Skin is not jaundiced. Neurological: General: No focal deficit present. Mental Status: She is alert and oriented to person, place, and time. Psychiatric: Mood and Affect: Mood normal. Behavior: Behavior normal. Data Reviewed and Summarized Labs: Lab Results Component Value Date WBC 10.5 03/04/2023 HGB 10.3 (L) 03/04/2023 HCT 34.9 (L) 03/04/2023 MCV 76.0 (L) 03/04/2023 PLT 377 03/04/2023 Lab Results Component Value Date GLUCOSE 92 02/22/2023 CALCIUM 9.9 02/22/2023 NA 139 02/09/2022 K 4.2 02/09/2022 CO2 29 02/22/2023 CL 104 02/09/2022 BUN 11 02/22/2023 CREATININE 0.64 02/22/2023 Lab Results Component Value Date ALT 15 02/22/2023 AST 17 02/22/2023 ALKPHOS 46 02/22/2023 BILITOT 0.5 02/22/2023 Lab Results Component Value Date TSH 1.14 02/22/2023 Imaging/Testing: AMANDA Milner 3:29 PM 03/14/23 documented in this encounter [facility] 03-14-2023 Instructions Dee Holloway MA - 03/14/2023 2:40 PM EDT --Please call office with any questions or concerns! [phone] --Schedule EGD (upper endoscopy) and colonoscopy with Miralax prep for further evaluation of the symptoms. Patient is scheduled in [place] on 04/25/2023 at 8:15am for an EGD/Colon w/MAC with Dr Arzola. Case # [id number] --Avoid nonsteroidal anti-inflammatory (NSAID) medications such as ibuprofen (Advil), naproxen (Aleve), etc. These can contribute to abdominal pain and ulcers. Take Tylenol (acetaminophen) instead if needed for pain by following the instructions on the bottle. --Please see handout provided regarding additional recommendations for the symptoms including when to seek emergency care or further treatment. --Follow-up with PCP, and in GI clinic as needed. The following attachments cannot be sent through Care Everywhere.Upper GI Endoscopy ([place]ux[place]ger)Colonoscopy ([place]ux[place]ger)Acid Reflux and Gastroesophageal Reflux Disease in Adults ([place]ux[place]ger)Good Food Sources of Iron ([place]ux[place]bourger)documented in this encounter [facility] 03-13-2023 Note ----- Message from Catherine Soliz DO sent at 03/13/2023 6:54 AM EDT ----- Patient thyroid nodule has increased in size. At this point she needs an ENT consultation for possible considerations of fine-needle biopsy. Post referral to . [facility] 03-05-2023 Note ----- Message from Catherine Soliz DO sent at 03/04/2023 11:23 AM EDT ----- Call [facility] GI referral group on timing of Consultation- move up date [facility] 03-04-2023 History of Present illness Narrative Images from the original note were not included. [facility] [address] [id number] Visit type: Established Patient Reason for Visit: ER Follow-up (For feeling faint and tired) Assessment / Plan: Jaime was seen today for er follow-up. Diagnoses and all orders for this visit: Iron deficiency anemia, unspecified iron deficiency anemia type (Primary) - CBC; Future - CBC H/O fibromyalgia Gastroesophageal reflux disease with esophagitis, unspecified whether hemorrhage Other orders - omeprazole (PriLOSEC) [address] capsule; Take 1 capsule (40 mg) by mouth daily. Subjective: Patient ID: Jaime Ma is a 47 y.o. female. HPI non-smoker with history of fibromyalgia who takes daily NSAIDs presents for follow-up for iron deficiency anemia. Went to ER because of overall weakness. Hemoglobin went from 8.7 to 9.4 g. Having some substernal burning. History of OTC NSAIDs daily for her fibromyalgia. Question of melena. Hemoccult testing in the ER was unremarkable. She is awaiting GI consultation for panendoscopy. Review of Systems her menses are pretty regular 5 days length. Not a lot of breakthrough bleeding. No pelvic pain. No history of fibroids. Does not smoke or drink. Having some substernal burning with certain food groups. No dysphagia. No hematemesis. Bowels are somewhat constipated on iron but generally pretty regular. No mucus or diarrhea. No exertional chest pain jaw pain or arm pain. EKG negative in the ER. Allergies Allergen Reactions Sulfa Antibiotics Hives Other reaction(s): Unknown Other reaction(s): Other Current Outpatient Medications on File Prior to Visit Medication Sig Dispense Refill ferrous sulfate 325 (65 Fe) MG tablet Take 325 mg by mouth. fluorometholone (FML) 0.1 % ophthalmic suspension INSTILL 1 DROP INTO BOTH EYES EVERY NIGHT FLUoxetine (PROzac) 10 MG capsule Take 1 capsule (10 mg) by mouth every morning for 90 doses. 90 capsule 1 rosuvastatin (Crestor) 5 MG tablet Take 1 tablet (5 mg) by mouth every morning for 180 doses. 90 tablet 1 traZODone (Desyrel) 50 MG tablet Take 1 tablet (50 mg) by mouth Nightly for 180 doses. 90 tablet 1 [DISCONTINUED] Ferrous Sulfate (FEROSUL PO) [DISCONTINUED] omeprazole (PriLOSEC) [address] capsule Take 1 capsule (20 mg) by mouth daily for 180 doses. 90 capsule 1 No current facility-administered medications on file prior to visit. Patient Active Problem List Diagnosis PMS (premenstrual syndrome) H/O fibromyalgia Anxiety and depression Multiple thyroid nodules BOO on CPAP Menorrhagia with regular cycle Hypercholesterolemia Family history of thyroid cancer Social History Tobacco Use Smoking status: Never Smokeless tobacco: Never Substance Use Topics Alcohol use: No Alcohol/week: 0.0 standard drinks of alcohol Past Surgical History: Procedure Laterality Date SKIN CANCER EXCISION 2013 scalp BCC- Chrissie Family History Problem Relation Name Age of Onset Anxiety disorder Mother marjavad Hyperlipidemia Mother marjavad Depression Mother marjavad Asthma Mother selene mild cough variant asthma Deep vein thrombosis Father Jaxon Cordon post op Atrial fibrillation Father Jaxon Cordon High Blood Pressure Father Jaxon Cordon Thyroid cancer Sister Gloria 35 No Known Problems Sister No Known Problems Sister No Known Problems Daughter No Known Problems Son No Known Problems Son No Known Problems Son Dementia Maternal Grandmother No Known Problems Maternal Grandfather Stroke Paternal Grandmother No Known Problems Paternal Grandfather Objective: BP 97/61 Pulse 76 Temp 36.4 C (97.5 F) (Temporal) Ht 5' 5 (1.651 m) Wt 162 lb (73.5 kg) SpO2 99% BMI 26.96 kg/m Physical Exam vital signs stable. Not tachycardic. Well-hydrated. No change in thyroid goiter. No adenopathy. Heart is regular gallops or murmurs or ectopy. Lungs are clear. Abdomen soft obese nontender without pain hepatosplenomegaly masses bruits or ascites. No adenopathy. Extremities are pink without edema or cyanosis. Reviewed labs EKG from the ER and also our records extensively with the patient. documented in this encounter [facility] 02-20-2023 History of Present illness Narrative Images from the original note were not included. [facility] [address] [place] [id number] Visit type: Established Patient Reason for Visit: Follow-up (6 month med check) Assessment / Plan: Jaime was seen today for follow-up. Diagnoses and all orders for this visit: Anxiety and depression (Primary) Comments: stable, cont the trazodone and Prozac Hyperlipidemia, unspecified hyperlipidemia type Comments: Stable, continue Crestor and better low-fat meals Orders: - rosuvastatin (Crestor) 5 MG tablet; Take 1 tablet (5 mg) by mouth every morning for 180 doses. Multiple thyroid nodules Comments: Noted, recheck lab and ultrasound Orders: - CBC auto differential; Future - Comprehensive metabolic panel; Future - T4; Future - T3; Future - TSH; Future - CBC auto differential - Comprehensive metabolic panel - T4 - T3 - TSH Gastroesophageal reflux disease without esophagitis Comments: Stable, continue omeprazole. GI referral Colon cancer screening Other orders - FLUoxetine (PROzac) 10 MG capsule; Take 1 capsule (10 mg) by mouth every morning for 90 doses. - omeprazole (PriLOSEC) [address] capsule; Take 1 capsule (20 mg) by mouth daily for 180 doses. - traZODone (Desyrel) 50 MG tablet; Take 1 tablet (50 mg) by mouth Nightly for 180 doses. Subjective: Patient ID: Jaime Ma is a 47 y.o. female. HPI patient presents for refill on trazodone and Prozac. Meds have been effective but she did have a dramatic stress this past [place] suffered an acute TX and underwent an LAD stent. He has been stable but she certainly worries about it. Overall her 4 children been well. She does not smoke or drink. No new stresses with her family. Does need follow-up thyroid ultrasound. Taking omeprazole for a while. No recurrent burning substernally. No dysphagia. No early satiety. No bowel changes. No melena or bleeding. Is due for colonoscopy. Mother has substantial GERD. Patient compliant with Crestor. LDL at goal. Review of Systems no night sweats fevers or chills. No tremor or alopecia. No dysphagia. No chest pain or palpitations. No cough or dyspnea. No abdominal pain. Bowels are regular. History of multinodular goiter. Of note her sister did have thyroid cancer. Allergies Allergen Reactions Sulfa Antibiotics Hives Other reaction(s): Unknown Current Outpatient Medications on File Prior to Visit Medication Sig Dispense Refill fluorometholone (FML) 0.1 % ophthalmic suspension INSTILL 1 DROP INTO BOTH EYES EVERY NIGHT [DISCONTINUED] FLUoxetine (PROzac) 10 MG capsule Take 1 capsule (10 mg) by mouth every morning. 30 capsule 5 [DISCONTINUED] omeprazole (PriLOSEC) [address] capsule Take 1 capsule (20 mg) by mouth daily for 90 doses. 90 capsule 1 [DISCONTINUED] rosuvastatin (Crestor) 5 MG tablet Take 1 tablet (5 mg) by mouth every morning for 90 doses. 90 tablet 1 [DISCONTINUED] traZODone (Desyrel) 50 MG tablet Take 1 tablet (50 mg) by mouth Nightly for 90 doses. 90 tablet 1 No current facility-administered medications on file prior to visit. Patient Active Problem List Diagnosis PMS (premenstrual syndrome) H/O fibromyalgia Anxiety and depression Multiple thyroid nodules BOO on CPAP Menorrhagia with regular cycle Hypercholesterolemia Family history of thyroid cancer Social History Tobacco Use Smoking status: Never Smokeless tobacco: Never Substance Use Topics Alcohol use: No Alcohol/week: 0.0 standard drinks of alcohol Past Surgical History: Procedure Laterality Date SKIN CANCER EXCISION 2013 scalp BCC- Chrissie Family History Problem Relation Name Age of Onset Anxiety disorder Mother mardel Hyperlipidemia Mother mardel Depression Mother mardel Asthma Mother selene mild cough variant asthma Deep vein thrombosis Father Jaxon Cordon post op Atrial fibrillation Father Jaxon Cordon High Blood Pressure Father Jaxon Cordon Thyroid cancer Sister Gloria 35 No Known Problems Sister No Known Problems Sister No Known Problems Daughter No Known Problems Son No Known Problems Son No Known Problems Son Dementia Maternal Grandmother No Known Problems Maternal Grandfather Stroke Paternal Grandmother No Known Problems Paternal Grandfather Objective: BP 86/53 Pulse 76 Temp 36.4 C (97.5 F) (Temporal) Ht 5' 5 (1.651 m) Wt 165 lb (74.8 kg) SpO2 99% BMI 27.46 kg/m Physical Exam she appears well. Nonicteric. Normal oropharynx. Some asymmetric enlargement of the left thyroid. Nontender nodule upper aspect of left lobe Reflexes normal. Heart is rate without gallops or murmurs. Lungs are clear. Abdomen sl obese nontender without pain hepatosplenomegaly masses or bruits. Extremities are pink without edema. She has good eye contact she is well-groomed and has good insight documented in this encounter [facility] 05-09-2022 History of Present illness Narrative Patient came in with complaints of headache extreme fatigue pressure in the center of her chest and pain in the center of her chest that is nonreproducible on palpation. Did confer with senior medical director she is being referred to the ER. Patient adamantly denies wanting to go to the ER but did instruct her that it could be cardiac related. documented in this encounter [facility] 03-24-2022 Note HNO ID: [id number] Author: Britt Morataya APRN.NAGI Service: ? Author Type: Nurse Practitioner Type: Progress Notes Filed: 03/24/2022 12:06 PM Note Text: Subjective The history is provided by the patient. No loop drier operator was used. HPI Jaime Ma is a 46 year old female who presents today for CC of painful blistered rash that started over the past week and is still evolving. She has used topical cream without relief. She denies any exposure to new soaps, lotions, environmental changes/exposure. BP 116/80 Pulse 91 Temp 36.8 ?C (98.2 ?F) (Tympanic) Resp 18 Wt 74.6 kg (164 lb 6.4 oz) SpO2 98% Social History Tobacco Use Smoking status: Never Smokeless tobacco: Never Substance Use Topics Alcohol use: Never Drug use: Never History reviewed. No pertinent past medical history. I have confirmed and edited as necessary, the [facility] Review of Systems Constitutional: Negative for chills and fever. Musculoskeletal: Negative for joint pain and myalgias. Skin: Positive for rash. Negative for itching (burning, vesicular, painful). All other systems reviewed and are negative. Objective Physical Exam Vitals and nursing note reviewed. Pulmonary: Effort: Pulmonary effort is normal. Skin: General: Skin is warm and dry. Findings: Erythema and rash present. Rash is vesicular. Comments: vesicles on an erythematous base clustered in a dermatomal distribution Neurological: Mental Status: She is alert and oriented to person, place, and time. Psychiatric: Mood and Affect: Affect normal. ASSESSMENT/PLAN: 1. Rash - ICD9: 782.1, ICD10: R21 Appears to be recurrance of shingles Valtrex, prednisone as ordered Tylenol prn Follow up with PCP for pain management prn Diagnosis and treatment plan were discussed and questions were answered to the patient's satisfaction. Pt acknowledged understanding of concepts and follow up plan. Specific signs and symptoms that would indicate the need for higher level of care were discussed in detail warranting prompt ER evaluation. Britt Morataya APRN.CNP [facility] 03-24-2022 Instructions Britt Morataya APRN.CNP - 03/24/2022 11:56 AM EDT Valtrex as ordered * Prednisone taper, take as directed, take in morning or early in day * Do not NSAIDs during this 5 day course (ibuprofen, naproxen, Motrin, Aleve, Advil) Tylenol only during prednisone use * Follow up with primary care provider if no improvement with treatment Follow up with PCP as needed for pain management [facility] PATIENT INFO SHINGLES Shingles (Herpes Zoster) What is shingles? Shingles is an infection caused by the same virus that causes chickenpox. This virus is called varicella zoster. You cannot develop shingles unless you have had a previous infection of chickenpox (usually as a child). Shingles is also called herpes zoster. This infection is most common in people over 60 years of age, but young people can have it as well. How does it occur? After you recover from chickenpox, the chickenpox virus is not destroyed. It moves back to the roots of your nerve cells (near the spinal cord) and becomes inactive (dormant). Later, if the virus is reactivated, the symptoms are called shingles. What exactly causes the reactivation of the virus is not known. A weakened immune system seems to allow reactivation of the virus. Advancing age and chronic use of cortisone-type drugs may trigger shingles. The virus may also become active again after the skin is injured or sunburned. Emotional stress seems to be a common trigger as well. What are the symptoms? The first sign of shingles is often burning, sharp pain, tingling, or numbness in or under your skin on one side of your body or face. The most common site is the back or upper abdomen. You may have severe itching or aching. You also may feel tired and ill with fever, chills, headache, and upset stomach. After several days, you will notice a rash of small, clear, fluid-filled blisters on reddened skin. Within 3 days after they appear, the blisters will turn yellow, then dry and crust over. Over the next 2 weeks the crusts will drop off, sometimes leaving small, pitted scars. Because they tend to follow nerve paths, the blisters are usually found in a line, often extending from the back or flank around to the abdomen, just on one side. Shingles usually doesn't cross the midline of the body. (The word shingles comes from the Latin word for belt or girdle.) The rash also may appear on one side of your face. Some people have painful eye inflammations and infections. Is shingles contagious? You can't get shingles from someone else, but you may get chickenpox from contact with shingles blisters if you have not had chickenpox before. The shingles virus is in the blister fluid. The virus can spread by direct contact with a blister. It can also be spread by indirect contact, for example, if you use a washcloth that has blister fluid on it. If you have shingles, avoid contact with infants, children, women, and adults who have never had chickenpox or the chickenpox shot until your blisters are completely dry. How is shingles diagnosed? Your health care provider will ask about your symptoms and examine you. Your provider may order lab tests to look for the virus in fluid from a blister. How is it treated? It is best to start treatment within 24 to 48 hours after symptoms start. Your health care provider may prescribe: -an antiviral drug, such as acyclovir, to speed recovery and lessen the chance of prolonged symptoms from nerve inflammation -painkillers for more serious discomfort if nonprescription painkillers are not helping enough -antibacterial salves or lotions to help prevent bacterial infection of the blisters -capsaicin cream for pain How long will the effects last? The rash from shingles will heal in 1 to 2 weeks and the pain or irritation will usually disappear within 3 to 5 weeks. If the virus damages a nerve, you may have pain, numbness, or tingling for months or even years after the rash is healed. This is a condition called postherpetic neuralgia. It is most likely to occur after a shingles outbreaks in people over 50 years old. Antiviral medicine prescribed at the time the shingles is diagnosed and taken for 7 days can help prevent this problem. How can I take care of myself? -Take a pain relief medicine such as acetaminophen. Take other medicine as prescribed by your health care provider. -Put a cool compress on the rash (such as a cool, moist washcloth). -Rest in bed during the early stages if you have fever and other symptoms. -Try to avoid having clothing or bed linens rubbing against the rash, which might irritate it. Call your health care provider if: -You develop worsening pain or fever. -The blisters show signs of bacterial infection, such as increasing pain or redness, or milky yellow drainage from the blister sites. -The blisters are close to the eyes. How can I help prevent shingles? -If you have never had chickenpox, you can get a shot to help prevent infection with the chickenpox virus. -You can protect your immune system and lessen your chances of getting shingles by trying to keep your stress under control documented in this encounter [facility] 03-24-2022 History of Present illness Narrative Images from the original note were not included. Subjective The history is provided by the patient. No loop drier operator was used. HPI Jaime Ma is a 46 year old female who presents today for CC of painful blistered rash that started over the past week and is still evolving. She has used topical cream without relief. She denies any exposure to new soaps, lotions, environmental changes/exposure. BP 116/80 Pulse 91 Temp 36.8 C (98.2 F) (Tympanic) Resp 18 Wt 74.6 kg (164 lb 6.4 oz) SpO2 98% Social History Tobacco Use Smoking status: Never Smokeless tobacco: Never Substance Use Topics Alcohol use: Never Drug use: Never History reviewed. No pertinent past medical history. I have confirmed and edited as necessary, the [facility] Review of Systems Constitutional: Negative for chills and fever. Musculoskeletal: Negative for joint pain and myalgias. Skin: Positive for rash. Negative for itching (burning, vesicular, painful). All other systems reviewed and are negative. Objective Physical Exam Vitals and nursing note reviewed. Pulmonary: Effort: Pulmonary effort is normal. Skin: General: Skin is warm and dry. Findings: Erythema and rash present. Rash is vesicular. Comments: vesicles on an erythematous base clustered in a dermatomal distribution Neurological: Mental Status: She is alert and oriented to person, place, and time. Psychiatric: Mood and Affect: Affect normal. ASSESSMENT/PLAN: 1. Rash - ICD9: 782.1, ICD10: R21 Appears to be recurrance of shingles Valtrex, prednisone as ordered Tylenol prn Follow up with PCP for pain management prn Diagnosis and treatment plan were discussed and questions were answered to the patient's satisfaction. Pt acknowledged understanding of concepts and follow up plan. Specific signs and symptoms that would indicate the need for higher level of care were discussed in detail warranting prompt ER evaluation. Britt Morataya APRN.NAGI documented in this encounter [facility] 02-16-2022 Note HNO ID: [id number] Author: Alejandra Dupree APRN.CNP Service: ? Author Type: Nurse Practitioner Type: Progress Notes Filed: 02/16/2022 9:34 AM Note Text: This note was created using Kwarterriter. Subjective Jaime Ma is a 46 year old female. 46 year old female with PMH presents for sore throat. Acute onset of symptoms was last night. +sore throat +fever +chills +headache Denies accompanying URI sx. Denies cough or congestion Denies skin rash or lesions. Used Tylenol Denies difficulty swallowing or handling secretions. The history is provided by the patient. No loop drier operator was used. Sore Throat This is a new problem. The current episode started yesterday. The problem has been gradually worsening. Neither side of throat is experiencing more pain than the other. The maximum temperature recorded prior to her arrival was 100.4 - 100.9 F. The pain is at a severity of 5/10. The pain is moderate. Pertinent negatives include no abdominal pain, congestion, coughing, diarrhea, drooling, ear discharge, ear pain, headaches, hoarse voice, plugged ear sensation, neck pain, shortness of breath, stridor, swollen glands, trouble swallowing or vomiting. She has had no exposure to strep or mono. She has tried acetaminophen for the symptoms. The treatment provided mild relief. No past medical history on file. No past surgical history on file. ALLERGIES Sulfa (Sulfonamide Antibiotics) MEDICATIONS traZODone (DESYREL) 50 mg tablet sertraline (ZOLOFT) 25 mg tablet fluorometholone (FML LIQUID FILM) 0.1 % ophthalmic suspension INSTILL 1 DROP INTO BOTH EYES EVERY NIGHT amoxicillin (POLYMOX, AMOXIL) 500 mg capsule Take 1 capsule by mouth twice daily for 10 days. No family history on file. Social History Tobacco Use - Smoking status: Never Smoker - Smokeless tobacco: Never Used Substance Use Topics - Alcohol use: Never - Drug use: Never Review of Systems Constitutional: Negative for activity change, appetite change, chills, diaphoresis and fatigue. HENT: Positive for sore throat. Negative for congestion, drooling, ear discharge, ear pain, hoarse voice and trouble swallowing. Eyes: Negative for pain, discharge, redness and itching. Respiratory: Negative for apnea, cough, chest tightness, shortness of breath and stridor. Cardiovascular: Negative for chest pain, palpitations and leg swelling. Gastrointestinal: Negative for abdominal pain, diarrhea and vomiting. Musculoskeletal: Negative for arthralgias, back pain, gait problem and neck pain. Skin: Negative for pallor, rash and wound. Allergic/Immunologic: Negative for environmental allergies, food allergies and immunocompromised state. Neurological: Negative for dizziness, facial asymmetry and headaches. Hematological: Negative for adenopathy. Does not bruise/bleed easily. Psychiatric/Behavioral: Negative for agitation and behavioral problems. Objective BP 126/82 Pulse 86 Temp 36.8 ?C (98.2 ?F) Resp 16 Wt 76.3 kg (168 lb 3.2 oz) SpO2 98% Physical Exam Vitals and nursing note reviewed. Constitutional: General: She is not in acute distress. Appearance: Normal appearance. She is normal weight. She is not ill-appearing, toxic-appearing or diaphoretic. HENT: Head: Normocephalic and atraumatic. Right Ear: Ear canal and external ear normal. Left Ear: Ear canal and external ear normal. Nose: Nose normal. No congestion or rhinorrhea. Mouth/Throat: Mouth: Mucous membranes are moist. Pharynx: Posterior oropharyngeal erythema (marked and moderate 2+ enlarged tonsils. No exudate. Handling secretions) present. No oropharyngeal exudate. Eyes: General: Right eye: No discharge. Left eye: No discharge. Extraocular Movements: Extraocular movements intact. Conjunctiva/sclera: Conjunctivae normal. Pupils: Pupils are equal, round, and reactive to light. Cardiovascular: Rate and Rhythm: Normal rate and regular rhythm. Pulses: Normal pulses. Heart sounds: Normal heart sounds. No murmur heard. No friction rub. Pulmonary: Effort: Pulmonary effort is normal. No respiratory distress. Breath sounds: Normal breath sounds. No stridor. No wheezing, rhonchi or rales. Chest: Chest wall: No tenderness. Abdominal: General: Abdomen is flat. There is no distension. Palpations: Abdomen is soft. There is no mass. Tenderness: There is no abdominal tenderness. There is no right CVA tenderness, left CVA tenderness, guarding or rebound. Hernia: No hernia is present. Musculoskeletal: General: No swelling, tenderness, deformity or signs of injury. Normal range of motion. Cervical back: Normal range of motion and neck supple. No rigidity. Right lower leg: No edema. Left lower leg: No edema. Lymphadenopathy: Cervical: No cervical adenopathy. Skin: General: Skin is warm and dry. Capillary Refill: Capillary refill takes less than 2 seconds. Coloration: Skin is not jaundiced or p (more content not included)... [facility] 02-16-2022 History of Present illness Narrative This note was created using [employer]. Subjective Jaime Ma is a 46 year old female. 46 year old female with PMH presents for sore throat. Acute onset of symptoms was last night. +sore throat +fever +chills +headache Denies accompanying URI sx. Denies cough or congestion Denies skin rash or lesions. Used Tylenol Denies difficulty swallowing or handling secretions. The history is provided by the patient. No loop drier operator was used. Sore Throat This is a new problem. The current episode started yesterday. The problem has been gradually worsening. Neither side of throat is experiencing more pain than the other. The maximum temperature recorded prior to her arrival was 100.4 - 100.9 F. The pain is at a severity of 5/10. The pain is moderate. Pertinent negatives include no abdominal pain, congestion, coughing, diarrhea, drooling, ear discharge, ear pain, headaches, hoarse voice, plugged ear sensation, neck pain, shortness of breath, stridor, swollen glands, trouble swallowing or vomiting. She has had no exposure to strep or mono. She has tried acetaminophen for the symptoms. The treatment provided mild relief. No past medical history on file. No past surgical history on file. ALLERGIES Sulfa (Sulfonamide Antibiotics) MEDICATIONS traZODone (DESYREL) 50 mg tablet sertraline (ZOLOFT) 25 mg tablet fluorometholone (FML LIQUID FILM) 0.1 % ophthalmic suspension INSTILL 1 DROP INTO BOTH EYES EVERY NIGHT amoxicillin (POLYMOX, AMOXIL) 500 mg capsule Take 1 capsule by mouth twice daily for 10 days. No family history on file. Social History Tobacco Use Smoking status: Never Smoker Smokeless tobacco: Never Used Substance Use Topics Alcohol use: Never Drug use: Never Review of Systems Constitutional: Negative for activity change, appetite change, chills, diaphoresis and fatigue. HENT: Positive for sore throat. Negative for congestion, drooling, ear discharge, ear pain, hoarse voice and trouble swallowing. Eyes: Negative for pain, discharge, redness and itching. Respiratory: Negative for apnea, cough, chest tightness, shortness of breath and stridor. Cardiovascular: Negative for chest pain, palpitations and leg swelling. Gastrointestinal: Negative for abdominal pain, diarrhea and vomiting. Musculoskeletal: Negative for arthralgias, back pain, gait problem and neck pain. Skin: Negative for pallor, rash and wound. Allergic/Immunologic: Negative for environmental allergies, food allergies and immunocompromised state. Neurological: Negative for dizziness, facial asymmetry and headaches. Hematological: Negative for adenopathy. Does not bruise/bleed easily. Psychiatric/Behavioral: Negative for agitation and behavioral problems. Objective BP 126/82 Pulse 86 Temp 36.8 C (98.2 F) Resp 16 Wt 76.3 kg (168 lb 3.2 oz) SpO2 98% Physical Exam Vitals and nursing note reviewed. Constitutional: General: She is not in acute distress. Appearance: Normal appearance. She is normal weight. She is not ill-appearing, toxic-appearing or diaphoretic. HENT: Head: Normocephalic and atraumatic. Right Ear: Ear canal and external ear normal. Left Ear: Ear canal and external ear normal. Nose: Nose normal. No congestion or rhinorrhea. Mouth/Throat: Mouth: Mucous membranes are moist. Pharynx: Posterior oropharyngeal erythema (marked and moderate 2+ enlarged tonsils. No exudate. Handling secretions) present. No oropharyngeal exudate. Eyes: General: Right eye: No discharge. Left eye: No discharge. Extraocular Movements: Extraocular movements intact. Conjunctiva/sclera: Conjunctivae normal. Pupils: Pupils are equal, round, and reactive to light. Cardiovascular: Rate and Rhythm: Normal rate and regular rhythm. Pulses: Normal pulses. Heart sounds: Normal heart sounds. No murmur heard. No friction rub. Pulmonary: Effort: Pulmonary effort is normal. No respiratory distress. Breath sounds: Normal breath sounds. No stridor. No wheezing, rhonchi or rales. Chest: Chest wall: No tenderness. Abdominal: General: Abdomen is flat. There is no distension. Palpations: Abdomen is soft. There is no mass. Tenderness: There is no abdominal tenderness. There is no right CVA tenderness, left CVA tenderness, guarding or rebound. Hernia: No hernia is present. Musculoskeletal: General: No swelling, tenderness, deformity or signs of injury. Normal range of motion. Cervical back: Normal range of motion and neck supple. No rigidity. Right lower leg: No edema. Left lower leg: No edema. Lymphadenopathy: Cervical: No cervical adenopathy. Skin: General: Skin is warm and dry. Capillary Refill: Capillary refill takes less than 2 seconds. Coloration: Skin is not jaundiced or pale. Findings: No bruising, erythema, lesion or rash. Neurological: General: No focal deficit present. Mental Status: She is alert and oriented to person, place, and time. Cranial Nerves: No cranial nerve deficit. Sensory: No sensory deficit. Motor: No weakness. Coordination: Coordination normal. Gait: Gait normal. Psychiatric: Mood and Affect: Mood normal. Behavior: Behavior normal. Thought Content: Thought content normal. Judgment: Judgment normal. Assessment and Plan ASSESSMENT/PLAN: 1. Strep pharyngitis - ICD9: 034.0, ICD10: J02.0 (primary diagnosis) - suspect strep - Alere Strep Test POSITIVE, no culture pending - antibiotic as written - Discussed supportive care treatment with fluids, rest and analgesia. - The patient may also use warm salt water gargles, throat lozenges and/or OTC throat spray as needed and nasal saline gtts and suction prn. - Contagious dz precautions discussed- including considered contagious until on antibiotics for 24 hours - The patient should follow up in 3-5 days if symptoms persist or worsen - Call back if drooling, increased temperature, symptoms of dehydration and/or still sick in one week - STREP A MOLECULAR (POC) - COVID WITH FLUA+B, ROUTINE Alejandra Dupree APRN.CNP documented in this encounter [facility] 02-13-2022 Instructions Alejandra Dupree APRN.CNP - 02/13/2022 7:52 PM EDT Pharyngitis, unspecified etiology (primary encounter diagnosis) Viral illness You have been diagnosed with an illness caused by a virus. Antibiotics do not cure viral infections. If given when not needed, antibiotics can be harmful. The treatments described below will help you feel better while your body's own defenses are fighting the virus. General Instructions: Drink extra water and juice. Use a cool mist vaporizer or saline nasal spray to relieve congestion. For Sore throats, use ice chips or sore throat spray; lozenges for older children and adults. Specific Medications: Fever, aches, ear pain: Use medicines according to the package instructions or as directed by your healthcare provider. Stop the medication when the symptoms get better. No follow-ups on file. documented in this encounter [facility] documented in this encounter [facility] Work Phone: Evaluation note* Diagnosis Fatigue, unspecified type Sore throat Acute pharyngitis [facility] Work Phone: Evaluation note* Diagnosis Thyromegaly Goiter, unspecified [facility] Work Phone: Evaluation note* Diagnosis Strep pharyngitis- Primary Streptococcal sore throat [facility] [place] [facility] Diagnosis Rash- Primary Rash and other nonspecific skin eruption [facility] [place] [facility] Diagnosis Chest pain, unspecified type- Primary documented in this encounter [facility] note* Diagnosis Anxiety and depression- Primary Hyperlipidemia, unspecified hyperlipidemia type Multiple thyroid nodules Nontoxic multinodular goiter Gastroesophageal reflux disease without esophagitis Esophageal reflux Colon cancer screening Special screening for malignant neoplasms, colon documented in this encounter [facility]* Diagnosis Hypochromic microcytic anemia with iron overload- Primary documented in this encounter [facility]* Diagnosis Iron deficiency anemia, unspecified iron deficiency anemia type- Primary H/O fibromyalgia Gastroesophageal reflux disease with esophagitis, unspecified whether hemorrhage [facility] Multiple thyroid nodules Nontoxic multinodular goiter [facility]* Diagnosis Gastroesophageal reflux disease, unspecified whether esophagitis present- Primary Anemia, unspecified type Colon cancer screening Special screening for malignant neoplasms, colon GERD (gastroesophageal reflux disease) Esophageal reflux Anemia Unspecified anemia Colon cancer screening Special screening for malignant neoplasms, colon [facility]* Diagnosis Multiple thyroid nodules- Primary Nontoxic multinodular goiter GERD (gastroesophageal reflux disease) Esophageal reflux Anemia Unspecified anemia Colon cancer screening Special screening for malignant neoplasms, colon documented in this encounter [facility]* Diagnosis GERD (gastroesophageal reflux disease) Esophageal reflux Anemia Unspecified anemia Colon cancer screening Special screening for malignant neoplasms, colon [facility]* Diagnosis Neoplasm of uncertain behavior of thyroid gland [facility]* Diagnosis Menorrhagia with regular cycle- Primary Abnormal urine odor Other nonspecific finding on examination of urine Iron deficiency anemia due to chronic blood loss Iron deficiency anemia secondary to blood loss (chronic) [facility]* Diagnosis Encounter for gynecological examination with abnormal finding- Primary Menorrhagia with regular cycle Screening mammogram for breast cancer documented in this encounter [facility]* Diagnosis Iron deficiency anemia due to chronic blood loss- Primary Iron deficiency anemia secondary to blood loss (chronic) Menorrhagia with regular cycle Multiple thyroid nodules Nontoxic multinodular goiter Hiatal hernia Diaphragmatic hernia without mention of obstruction or gangrene Anxiety and depression Hypercholesterolemia Pure hypercholesterolemia documented in this encounter [facility]* Diagnosis Screening mammogram for breast cancer documented in this encounter [facility]* Diagnosis Viral illness- Primary Unspecified viral infection, in conditions classified elsewhere and of unspecified site Other fatigue Shortness of breath documented in this encounter [facility]* Diagnosis Viral illness- Primary Unspecified viral infection, in conditions classified elsewhere and of unspecified site Other fatigue Shortness of breath documented in this encounter [facility] note* Diagnosis Hyperlipidemia, unspecified hyperlipidemia type documented in this encounter [facility] note* Diagnosis Acute non-recurrent frontal sinusitis- Primary documented in this encounter [facility] note* Diagnosis Sinusitis, unspecified chronicity, unspecified location- Primary Cough, unspecified type Cough, unspecified type documented in this encounter [facility] note* Diagnosis Cough, unspecified type [facility] Attachments The following attachments cannot be sent through Care Everywhere. * Colonoscopy Discharge Instructions (Luxembourger) * Upper GI Endoscopy Discharge Instructions (Luxembourger) * Moderate Sedation in Adults Discharge Instructions (Luxembourger) [facility] Consultation (Routine) - Pending Review Specialty Diagnoses / Procedures Referred By Contac t Referred To Contact Otolaryngology Diagnoses Multiple thyroid nodules Procedures DE OFFICE/OUTPATIENT [facility] 60-74 MINUTES Dashawn Crane PA-C [address] [place] [address] Quentin Barnd, DO [address] [place] [address] Referral ID Status Reason Start Date Expiration Date Visits Requested Visits Authorized [id number] Pending Review Specialty Services Required 03/29/2023 03/28/2024 1 1 T [facility] Reason for Referral Status Reason Specialty Diagnoses / Procedures Referred By Contact Referred To Contact Authorized Radiology Diagnoses Encounter for screening mammogram for malignant neoplasm of breast Procedures Bj Oscar Digital Screen Bilateral Mk Dailey MD [address] [place] [address] Specialty Diagnoses / Procedures Referred By Contac t Referred To Contact Radiology Diagnoses Thyromegaly Procedures US Thyroid Adore Holloway, HISTOLOGY MANAGER - STORE PLANNER [address] [place] [address] Referral ID Status Reason Start Date Expiration Date Visits Re quested Visits Authorized [id number] Open 02/09/2022 02/09/2023 1 1 Assessments Diagnosis Encounter for screening mammogram for malignant neoplasm of breast Other screening mammogram Diagnosis Encounter for screening mammogram for malignant neoplasm of breast Other screening mammogram Advance Directives No Advanced Directives Records FoundDocuments on File Type Date Recorded Patient Associate Director Financial Aid Expl anation ACP-Advance Directive ACP-Power of [place] Weir Documents on File Type Date Recorded Patient Associate Director Financial Aid Expl anation Advance Directives and Living Will Power of [place] [employer]ir Documents on File Type Date Recorded Patient Associate Director Financial Aid Expl anation ACP-Advance Directive ACP-Power of [place] [employer] Summary Purpose Family History No Family History Records FoundNo Family History Records FoundNo Family History Records Found Additional Source Comments Care Teams (unrecognized sec tion and content) Net Making Supervisor Relationship Specialty Start Date End Date Norm Soliz [address] [place] [address] PCP - General Family Practice 03/09/21 Net Making Supervisor Relationship Specialty Start Date End Date Norm Soliz [address] [place] [address] PCP - General Family Practice 03/09/21 Net Making Supervisor Relationship Specialty Start Date End Date Norm Soliz [address] [place] [address] PCP - General Family Medicine 03/09/21 Net Making Supervisor Relationship Specialty Start Date End Date Norm Soliz DO [address] [place] [address] PCP - General 03/16/15 Net Making Supervisor Relationship Specialty Start Date End Date Norm Soliz DO [address] [place] [address] PCP - General 03/16/15 Net Making Supervisor Relationship Specialty Start Date End Date Norm Soliz DO [address] [place] [address] PCP - General 03/16/15 Net Making Supervisor Relationship Specialty Start Date End Date Norm Soliz, DO [address] [place] [address] PCP - General 03/16/15 Net Making Supervisor Relationship Specialty Start Date End Date Norm Soliz, DO [address] [place] [address] PCP - General 03/16/15 Net Making Supervisor Relationship Specialty Start Date End Date Norm Soliz, DO [address] [place] [address] PCP - General 03/16/15 Net Making Supervisor Relationship Specialty Start Date End Date Norm Soliz, DO [address] [place] [address] PCP - General 03/16/15 Net Making Supervisor Relationship Specialty Start Date End Date Norm Soliz, DO [address] [place] [phone] PCP - General 03/16/15 Net Making Supervisor Relationship Specialty Start Date End Date Norm Soliz, DO [address] [place] [phone] PCP - General 03/16/15 Net Making Supervisor Relationship Specialty Start Date End Date Norm Soliz, DO [address] [place] [phone] PCP - General 03/16/15 Net Making Supervisor Relationship Specialty Start Date End Date Norm Soliz, DO [address] [place] [phone] PCP - General 03/16/15 Net Making Supervisor Relationship Specialty Start Date End Date Norm Soliz, DO [address] [place] [address] PCP - General 03/16/15 Net Making Supervisor Relationship Specialty Start Date End Date Norm Soliz, DO [address] [place] [address] PCP - General 03/16/15 Net Making Supervisor Relationship Specialty Start Date End Date Norm Soliz, DO [address] [place] [phone] PCP - General 03/16/15 Net Making Supervisor Relationship Specialty Start Date End Date Norm Soliz, DO [address] [place] [phone] PCP - General 03/16/15 Net Making Supervisor Relationship Specialty Start Date End Date Norm Soliz, DO [address] [place] [phone] PCP - General 03/16/15 Net Making Supervisor Relationship Specialty Start Date End Date Norm Soliz, DO [address] [place] [phone] PCP - General 03/16/15 Net Making Supervisor Relationship Specialty Start Date End Date Norm Soliz, DO [address] [place] [phone] PCP - General 03/16/15 Net Making Supervisor Relationship Specialty Start Date End Date Norm Soliz DO [address] [place] [phone] PCP - General 03/16/15 Net Making Supervisor Relationship Specialty Start Date End Date Norm Soliz, DO [address] [place] [address] PCP - General 03/16/15 Net Making Supervisor Relationship Specialty Start Date End Date Norm Soliz, DO [address] [place] [address] PCP - General 03/16/15 Net Making Supervisor Relationship Specialty Start Date End Date Norm Soliz, DO [address] [place] [address] PCP - General 03/16/15 Source Comments (unrecognize d section and content) In the event this informatio n is protected by the Federal Confidentiality of Alcohol and Drug Abuse Patient Records regulations: The Federal rules restrict any use of the information to criminally investigate or prosecute any alcohol or drug abuse patient.[facility] the event this information is protected by the Federal Confidentiality of Alcohol and Drug Abuse Patient Records regulations: The Federal rules restrict any use of the information to criminally investigate or prosecute any alcohol or drug abuse patient.[facility] the event this information is protected by the Federal Confidentiality of Alcohol and Drug Abuse Patient Records regulations: The Federal rules restrict any use of the information to criminally investigate or prosecute any alcohol or drug abuse patient.[facility] Reason for Visit (unrecogniz ed section and content) Reason Comments Rash Rash lower left back x 1 week Reason Comments Sore Throat 1.5 weeks Reason Comments Follow-up 6 month med check Reason Comments ER Follow-up For feeling faint an d tired Reason Comments Anemia GERD Colon Cancer Screening Reason Onset Date Comments Referral 03/29/2023 Dr Brand Specialty Diagnoses / Procedures Referred By Clark jordan Referred To Contact Diagnoses GERD (gastroesophageal reflux disease) Anemia Colon cancer screening GERD (gastroesophageal reflux disease) [K21.9] Anemia [D64.9] Colon cancer screening [Z12.11] Procedures DE ESOPHAGOGASTRODUODENOSCOPY TRANSORAL DIAGNOSTIC DE COLONOSCOPY FLX DX W/COLLJ SPEC WHEN PFRMD EGD, COLONOSCOPY COLONOSCOPY Florentino Arzola [address] [place] [address] [facility] Endoscopy [address] [place] [address] Referral ID Status Reason Start Date Expiration Date Visits Re quested Visits Authorized [id number] 1 1 Specialty Diagnoses / Procedures Referred By Clark jordan Referred To Contact Radiology Diagnoses Neoplasm of uncertain behavior of thyroid gland nolvia garcianabeel at office [phone]//awar eof prpe//refused itr//passed covid screening//order in epic//nolvia arias at department who approves date and time nolvia quick for new date and time Procedures US GUIDED THYROID NEEDLE CORE BIOPSY US GUIDED THYROID BIOPSY [facility] Ultrasound [address] [place] [address] [facility] Ultrasound [address] [place] [address] Referral ID Status Reason Start Date Expiration Date Visits Re quested Visits Authorized [id number] Closed 05/07/2023 11/03/2023 1 1 Reason Comments Follow-up Low ironUrinary odor Reason Onset Date Comments Med Refill 06/24/2023 Error (VOID this visit) 06/24/2023 Duplicat e rx void Reason Comments Annual Exam Well womanLast pap-1 08/27/2021Last bj-07/03/2022 Reason Comments Discuss Labs Wants to check iron level Reason Onset Date Comments Release of Information 07/15/2023 Reason Comments Cough Fatigue Shortness of Breath Reason Onset Date Comments Med Refill 09/04/2023 Reason Onset Date Comments Med Refill 09/05/2023 Reason Comments Hoarseness INFORMATION SOURCE (unrecogn ized section and content) DATE CREATED AUTHOR AUTHOR'S ORGANIZ ATION 05/26/2022 [employer] DATE CREATED AUTHOR AUTHOR'S ORGANIZ ATION 10/10/2023 [facility] Scheduled Active and Recently Administ ered Medications (unrecognized section and content) Continuous Medication Order 04/23/2023 04/24/2023 04/25/2023 lactated Ringer's (LR) infusion 50 mL/hr, IntraVENous, Continuous, Starting on Suzanne 04/25/23 at 0745, Preprocedure, Upon admission to sameday - please start iv if patient does not have iv access. Use 500ml NS for patients on dialysis. 0745 (Canceled Entry - Provider: Automatic Discharge Provider - Comment: Automatically canceled at discontinue of medication order) PRN Medication Order 04/23/2023 04/24/2023 04/25/2023 sodium chloride 0.9 % infusion 5-250 mL/hr, IntraVENous, PRN, if patient receiving piggyback infusions and maintenance fluids are not ordered OR KVO fluids to protect IV site / prevent frequent line interruptions/ long duration, Starting on Suzanne 04/25/23 at 0731, Preprocedure, For piggyback infusion, administer at same rate as piggyback for a total of 25 mL. Enter 25 mL into dose field and piggyback rate into rate field of order. If piggyback is infusing at a rate less than 100 mL/hr, enter 25 mL into dose field and 100 mL/hr into rate field of order. For KVO fluids, enter rate of 20 mL/hr or less into rate field of order. sodium chloride 0.9% (NS) flush 10 mL 10 mL, IntraVENous, PRN, line care, Starting on Suzanne 04/25/23 at 0731, Preprocedure, After every IV line use FOR RECORDS PERTAINING TO PATIENTS WHO ARE OR HAVE BEEN ENROLLED IN A CHEMICAL DEPENDENCY/SUBSTANCEABUSE PROGRAM, SOME INFORMATION MAY BE OMITTED. This clinical summary was aggregated from multiple sources. Caution should be exercised in using it in the provision of clinical care. This summary normalizes information from multiple sources, and as a consequence, information in this document may materially change the coding, format and clinical context of patient data. In addition, data may be omitted in some cases. CLINICAL DECISIONS SHOULD BE BASED ON THE PRIMARY CLINICAL RECORDS. [email or web address] provides no warranty or guarantee of the accuracy or completeness of information in this document.
[2023-10-12 13:40] LABS: Anion Gap 5 (5-15); BUN 10 mg/dL (7-18); BUN/Creat Ratio 13.9 RATIO (10-20); Calcium,Total 9.1 mg/dL (8.5-10.1); Chloride 104 mmol/L (98-107); Creatinine, Serum 0.72 mg/dL (0.55-1.02); EST Glomerular Filtration Rate 93 mL/min (>60); Est Glom Filt Rate - Afr Amer 112 mL/min (>60); Estimated Creatinine Clearance 98.26 ml/min; Glucose 178 mg/dL (74-106); Potassium 3.4 mmol/L (3.5-5.1); Sodium Level 137 mmol/L (136-145); Troponin-I HS 4 pg/mL (3.0-54.0)
[2023-10-12 15:25] VITALS: BP 117/57; PULSE 72; RESP 18; TEMP 36.6; O2SAT 98
== END 2023-10-12 15:26 | disposition home or self-care (01) ==
PROVIDERS: Physician Assistant; Emergency Provider Student in an Organized Health Care Education/Training Program; PCP Family Medicine; Visit Provider Student in an Organized Health Care Education/Training Program
DX: R07.89 Other chest pain (principal); R53.83 Other fatigue; E78.00 Pure hypercholesterolemia, unspecified
CPT/HCPCS: 71045; 80048; 84484; 85025; 93005; 99284; A4216